=== PATIENT | female | born 1980 | race Caucasian/White ===

== ENCOUNTER 2017-11-03 05:29 | Inpatient (IN) | payer OTHER ==
[2017-11-03] MEDS ORDERED: Acetaminophen 500 MG Tab PO ONE (06:07)
[2017-11-03] MEDS ORDERED: Celecoxib 200 MG Cap PO ONE (06:07)
[2017-11-03] MEDS ORDERED: Gabapentin 300 MG Cap PO ONE (06:08)
[2017-11-03] MEDS ORDERED: Scopolamine 1.5 MG Transdermal Patch TOP ONE (06:15)
[2017-11-03] MEDS ORDERED: cefOXitin 2 GM Vial ONE (07:02)
[2017-11-03] MEDS ORDERED: fentaNYL 250 MCG/5 ML SDV ONE (07:09)
[2017-11-03] MEDS ORDERED: Succinylcholine/Normal Saline 200 MG/10 ML Syringe ONE (07:10)
[2017-11-03] MEDS ORDERED: Ondansetron 4 MG/2 ML SDV ONE (07:10)
[2017-11-03] MEDS ORDERED: Propofol 200 MG/20 ML SDV ONE (07:10)
[2017-11-03] MEDS ORDERED: Dextrose 5%-Lactated Ringers 1,000 ML IV SCH (07:15)
[2017-11-03] MEDS ORDERED: Lidocaine 0.4%/D5W 2 GM/500 ML BAG IV SCH (08:00)
[2017-11-03] MEDS ORDERED: Ketamine 500 MG/5 ML MDV IV SCH (08:00)
[2017-11-03] MEDS ORDERED: Lidocaine 2% 100 MG/5 ML Syringe IVPUSH ONE (08:00)
[2017-11-03] MEDS ORDERED: Ropivacaine 60 ML, Dexamethasone 8 MG, EPINEPHrine 0.4 MG, Sodium Chloride 0.9% 17.6 ML NERVRT SCH ×4 (08:00)
[2017-11-03] MEDS: cefOXitin 2 GM in Sodium Chloride 0.9% 50 ML IV ONE ×2 (08:09→13:22)
[2017-11-03] MEDS ORDERED: Rocuronium 50 MG/5 ML Vial ONE ×2 (08:22→09:54)
[2017-11-03] MEDS ORDERED: Dexamethasone 4 MG/ML SDV ONE (08:40)
[2017-11-03] MEDS ORDERED: Neostigmine Methylsulfate 1 MG/ML 5 ML Syringe ONE (09:45)
[2017-11-03] MEDS ORDERED: fentaNYL 100 MCG/2 ML SDV ONE (09:56)
[2017-11-03] MEDS ORDERED: hydrOXYzine HCl 100 MG/2 ML SDV IM ONE (10:50)
[2017-11-03] MEDS ORDERED: Metoclopramide 10 MG/2 ML SDV IVPUSH PRN (13:00)
[2017-11-03] MEDS ORDERED: Labetalol 20 MG/4 ML Syringe IVPUSH PRN (13:00)
[2017-11-03] MEDS ORDERED: Ondansetron 4 MG/2 ML SDV IVPUSH PRN (13:00)
[2017-11-03] MEDS ORDERED: hydrOXYzine HCl 100 MG/2 ML SDV IM PRN (13:00)
[2017-11-03] MEDS ORDERED: diphenhydrAMINE 50 MG/ML SDV IVPUSH PRN (13:00)
[2017-11-03] MEDS: cefOXitin 2 GM in Sodium Chloride 0.9% 50 ML IV SCH ×2 (13:22→20:12)
[2017-11-03] MEDS: Lidocaine 0.4%/D5W 2 GM/500 ML BAG IV SCH (13:23)
[2017-11-03] MEDS: Gabapentin 250 MG/5 ML Solution ML 470 ML Bottle PO SCH ×2 (13:24→20:12)
[2017-11-03] MEDS: [UNRECOGNIZED DRUG - REMARK] TOP SCH (13:24)
[2017-11-03] MEDS: Pantoprazole 40 MG Vial IVPUSH SCH (13:25)
[2017-11-03] MEDS: Acetaminophen Soln 650 MG/20.3 ML UD Cup PO SCH ×2 (13:25→20:12)
[2017-11-03] MEDS: Dextrose 5%-Lactated Ringers 1,000 ML IV SCH (13:48)
[2017-11-03] MEDS: MVI, Adult with Vitamin K 10 ML, Thiamine 200 MG, Chromium/Copper/Mang/Selen/Zn 1 ML in... IV SCH ×4 (16:15)
[2017-11-03] MEDS: Heparin Sodium 5,000 Units/ML Vial SUBCUT SCH (17:33)
[2017-11-04] MEDS: Dextrose 5%-Lactated Ringers 1,000 ML IV SCH (00:53)
[2017-11-04] MEDS: Lidocaine 0.4%/D5W 2 GM/500 ML BAG IV SCH (00:56)
[2017-11-04] MEDS: Acetaminophen Soln 650 MG/20.3 ML UD Cup PO SCH ×4 (01:00→19:55)
[2017-11-04] MEDS: cefOXitin 2 GM in Sodium Chloride 0.9% 50 ML IV SCH ×2 (01:00→08:54)
[2017-11-04] MEDS ORDERED: Iohexol 647 MG/ML 50 ML SDV PO STA (03:22)
[2017-11-04] MEDS: Heparin Sodium 5,000 Units/ML Vial SUBCUT SCH ×2 (06:14→18:07)
[2017-11-04] MEDS ORDERED: Ondansetron 4 MG Tab.DIS PO PRN (08:07)
[2017-11-04] MEDS ORDERED: Dextrose 5%-Lactated Ringers 1,000 ML IV SCH (08:15)
--- NOTE | 2017-11-04 08:53 | CR ---
Status post Tha-en-Y. No gross evidence for contrast leakage.
[2017-11-04] MEDS: Celecoxib 200 MG Cap PO SCH (08:55)
[2017-11-04] MEDS: Gabapentin 250 MG/5 ML Solution ML 470 ML Bottle PO SCH ×3 (08:58→21:42)
--- NOTE | 2017-11-04 09:15 | PN ---
DATE OF SERVICE: 11/04/2017 SUBJECTIVE: Montse is postop day #1, following a Tha-en-Y gastric bypass surgery. Pain is controlled. Vital signs have been stable. She has been up ambulating. Oral intake was 280 and urine output 2300. SAMIR drain put out a 95 mL of a light pink serosanguineous drainage. OBJECTIVE: GENERAL: Montse Salazar is a 37-year-old female. VITAL SIGNS: TPR is 99, 72, 16; blood pressure is 138/79. HEENT: Negative. NECK: Supple. HEART: Regular rate and rhythm. LUNGS: Clear. ABDOMEN: Dressings dry and intact. Abdominal binder is on and SCDs are on, and there is no peripheral edema. ASSESSMENT: Laparoscopic Tha-en-Y gastric bypass surgery. Liver biopsy and repair of diaphragmatic hernia for morbid obesity, hepatomegaly, and diaphragmatic hernia. Date of surgery is 11/03/2017. Spencer Pagan, surgeon. PLAN: 1. Step-2 gastric bypass diet. 2. Decrease IV to 100 mL per hour. 3. Dressing off, may shower. 4. Flexeril 10 mg t.i.d. p.r.n., Lexapro 10 mg p.o. daily, Zofran 4 mg sublingual p.r.n. nausea and vomiting, trazodone 50 mg p.o. at bedtime. 5. Good pulmonary toilet. 6. We will evaluate p.r.n. or in a.m. Mandy Bob PA-C /[id number]
[2017-11-04] MEDS: [UNRECOGNIZED DRUG - REMARK] TOP SCH (09:25)
[2017-11-04] MEDS: Escitalopram 10 MG Tab PO SCH (09:25)
[2017-11-04] MEDS: Cyclobenzaprine 10 MG Tab PO SCH ×3 (09:25→21:42)
[2017-11-04] MEDS: Pantoprazole 40 MG Vial IVPUSH SCH (13:26)
[2017-11-04] MEDS: MVI, Adult with Vitamin K 10 ML, Thiamine 200 MG, Chromium/Copper/Mang/Selen/Zn 1 ML in... IV SCH ×4 (16:13)
[2017-11-04] MEDS ORDERED: traZODone 50 MG Tab PO SCH (21:00)
[2017-11-05] MEDS: Acetaminophen Soln 650 MG/20.3 ML UD Cup PO SCH ×2 (01:51→08:09)
[2017-11-05] MEDS: Heparin Sodium 5,000 Units/ML Vial SUBCUT SCH (06:54)
[2017-11-05] MEDS: Celecoxib 200 MG Cap PO SCH (08:10)
[2017-11-05] MEDS: [UNRECOGNIZED DRUG - REMARK] TOP SCH (08:11)
[2017-11-05] MEDS: Escitalopram 10 MG Tab PO SCH (08:33)
[2017-11-05] MEDS: Cyclobenzaprine 10 MG Tab PO SCH (08:33)
[2017-11-05] MEDS: Gabapentin 250 MG/5 ML Solution ML 470 ML Bottle PO SCH (08:33)
[2017-11-05] MEDS ORDERED: Cyanocobalamin (Vitamin B12) 1,000 MCG/ML SDV IM ONE (09:00)
--- NOTE | 2017-11-06 08:52 | DISCH ---
ADMISSION DIAGNOSES: 1. Morbid obesity. 2. Back pain. 3. Depression. DISCHARGE DIAGNOSES: Laparoscopic Tha-en-Y gastric bypass surgery, liver biopsy, and repair of diaphragmatic hernia for morbid obesity, hepatomegaly, and diaphragmatic hernia. DATE OF SURGERY: 11/03/2017. SURGEON: Spencer Pagan MD. HISTORY: Montse Salazar is a 37-year-old female with longstanding history of morbid obesity and increasingly comorbidities. After preoperative evaluation and discussion of possible risks and possible complications, she wished to proceed with surgical procedure. HOSPITAL COURSE: Montse had her surgery on 11/03/2017. She had no operative complications. On postop day #1, her upper GI was normal. She was started on a step-2 gastric bypass diet without cereal. She received dietary instructions. On postop day #2, her activity was good, vital signs were stable, she received adequate postoperative education, and she is ready to be discharged to home. PHYSICAL EXAMINATION: GENERAL: Montse Salazar is a 37-year-old female. VITAL SIGNS: Height is 5 feet 7 inches, weight is 283 pounds, BMI is 44. T/P/R 98.6/81/16. Blood pressure 114/74. HEENT: Negative. NECK: Supple. HEART: Regular rate and rhythm. LUNGS: Clear. ABDOMEN: Sutures in place, 4x4s over SAMIR drain site. Abdominal binder is on. EXTREMITIES: Without peripheral edema. DISPOSITION: Discharged to home. CONDITION: Stable and improving. FOLLOWUP APPOINTMENT: With Mandy Bob PA-C, at [place], [place] on 11/10/2017 at 10 a.m. HOME MEDICATIONS: 1. Tylenol 650 mg oral q.6 hours liquid or chewable for 2 weeks. 2. Celebrex 200 mg p.o. daily, #14. 3. Zofran ODT 4 mg q.4 hours p.r.n. nausea. 4. She is to resume her home medications of Flexeril 10 mg 3 times a day, Lexapro 10 mg oral daily, trazodone 50 mg at bedtime. 5. Stop taking meloxicam 15 mg before breakfast. DISCHARGE INSTRUCTIONS: 1. Diet: Step-2 gastric bypass diet with no cereal until 11/16/2017. 2. Activity after discharge: No lifting over 10 pounds for 2 weeks. 3. Other activity: Walk at least 6 times daily inside your home. 4. Driving: Do not drive for 1 week. 5. Shower/Bathing: May shower. 6. Notify provider if any fever, increased pain, nausea, or vomiting. 7. Wound incision care: Keep site clean and dry. Wear abdominal binder for 2 weeks and then as tolerated. SPECIAL INSTRUCTIONS: Use incentive spirometer 10 times every hour while awake for 1 week. Write down everything you eat and drink. Add up protein grams and fluid ounces, bring to clinic appointment.
--- NOTE | 2017-11-09 14:01 | OR ---
DATE OF PROCEDURE: 11/03/2017 PREOPERATIVE DIAGNOSIS: Morbid obesity. POSTOPERATIVE DIAGNOSES: 1. Morbid obesity. 2. Marked hepatomegaly. 3. Paraesophageal diaphragmatic hernia. OPERATIVE PROCEDURE: 1. Laparoscopic Tha-en-Y gastric bypass, long limb gastroenterostomy (16472). 2. Jose Eduardo-Cut needle liver biopsy (10247). 3. Repair of paraesophageal diaphragmatic hernia (51323). ANESTHESIA: General. ASSISTANTS: Mandy Bob PA-C and KRIS Covington3. INDICATIONS FOR PROCEDURE: This is a 37-year-old presenting with longstanding morbid obesity and increasingly significant comorbidities. After preoperative evaluation and discussion, she wished to proceed with a gastric bypass procedure. Potential risks including bleeding, infection, leaks from various GI tract closures, problems with bowel obstruction over time as well as possibility of cardiopulmonary, septic, or hemorrhagic complications leading to were discussed, and the patient wishes to proceed. DETAILS OF PROCEDURE: The patient was taken to the operating room and after general endotracheal anesthesia was induced, she was placed in a lithotomy position. An orogastric tube was placed and the abdomen was prepped and draped. At 15 cm inferior, 5 cm left of the xiphoid process, a transverse incision was made, the peritoneal cavity inflated to 15 mmHg pressure with CO2. Laparoscope was then reinserted. No underlying trocar insertion site injuries were seen. Following this, bilateral subcostal transversus abdominis plane blocks were placed with direct visualization of the needle-tip in the plane just inside the peritoneum and the standard injection placed bilaterally. Following this, 5-mm trocars were placed across the upper and mid abdomen and general exploration was undertaken. The liver was noted to be markedly enlarged and grossly fatty infiltrated. Jose Eduardo-Cut needle biopsies were obtained from left lobe of the liver. Minimal bleeding from the biopsy sites was controlled with electrocautery. The omentum was then divided at the midline at the level of the transverse colon. This allowed identification of the small bowel at the ligament of Treitz. Small bowel was then traced out 150 cm distal to that point, was divided transversely with a CORINNE stapler. Small bowel was then traced out an additional 200 cm where the [id number] enteroenterostomy was accomplished with internal firing of the Endo-CORINNE 60 mm stapler. The common opening was then closed transversely with the same stapler and angles anastomosed, and mesenteric defect approximated with some 0 Ethibond stitch along with 4 mL of fibrin sealant. The divided end of the Tha limb was then from the mesentery for a few centimeters, which allowed an antecolic position of the Tha limb up to the level of the gastroesophageal junction without tension. The liver was then retracted anteriorly. The patient was noted to have a moderate-sized paraesophageal diaphragmatic hernia containing some perigastric fat as well as the fundus of the stomach. This was reduced and the peritoneum overlying this was divided and reflected downward. An anterior repair of the diaphragmatic hernia was accomplished with some 0 Ethibond sutures reinforced with PTFE pledgets. The gastrointestinal balloon catheter was inflated to 15 mL and pulled up snugly against the EG junction. Gastric wall over the apex balloon was marked with electrocautery, and balloon catheter deflated and pulled up from the esophagus. The lesser omental tissue adjacent to the gastric cardia was then incised and this allowed initiation of pouch formation of the cauterized site on the gastric cardia and then completed with additional CORINNE staple firings up to and through the angle of His. Upon completion of the pouch, both staple lines were noted to be intact. At this point, an anvil of 25 mm EEA stapler was attached to a [place] sump-type tube. The latter was brought down through the mouth and taken out through a small opening in the gastric pouch. The divided end of the Tha limb was then opened and upon attempted placement of a 25 mm stapler, the small bowel was noted to undergo extreme spasm despite being very gentle and slow. The patient had unusual degree of spasm and the bowel continued to tear. Given this, the stapler was removed. The retrieval stitch to the anvil was also then used to remove the 25-mm EEA anvil and a 21-mm anvil was then placed through the same opening in the gastric pouch. The divided end of the Tha limb was then entered with the 21- mm EEA stapler. This also had a quite bit of spasm, but eventually satisfactory length of uninjured small bowel was established to allow the stapler to be brought out the anvil and united with it and thus creating a gastrojejunostomy. Upon removal of the stapler, double donuts of mucosa were noted within it and the small bowel was closed off with a vascular staple line. Gastrojejunostomy was then reinforced with some 3-0 Vicryl seromuscular stitch along with fibrin sealant. The omentum was wrapped around the anastomosis as well and on its left side both anteriorly and posteriorly and following this, a leak test was then accomplished with injection of 120 mL of air in the gastric pouch while submerged with cefoxitin-containing saline solution. No leaks were identified. A single Ky-Saba drain was then taken out through the left lateral trocar site and positioned adjacent to the gastrojejunostomy and from there up into the splenic fossa. The remaining trocars were removed and the peritoneal cavity deflated. Incisions were closed with some 4-0 Vicryl skin stitch which was also used to affix the drain. The patient was taken to the recovery room in satisfactory condition. Physician accounting assistant, Mandy Bob, played an essential role in assisting in this case, helping to position the patient, retract structures as needed, as well as suturing and cutting sutures when indicated. Her presence improved patient safety and decreased the operative time. Spencer Pagan MD /[id number]
== END 2017-11-05 10:41 | disposition home or self-care (01) | DRG 620 ==
LOC: JP.SDS 05:29 → JP.MS 05:29 → EDSTATUS 08:45 → JP.2SS 10:30
PROVIDERS: ADMIT Surgery; ATTEND Surgery
PROC: 0D164ZA Bypass Stomach to Jejunum, Percutaneous Endoscopic Approach (ICD-10-PCS; principal; 2017-11-03)
PROC: 0FB24ZX Excision of Left Lobe Liver, Percutaneous Endoscopic Approach, Diagnostic (ICD-10-PCS; 2017-11-03)
PROC: 0BQT4ZZ Repair Diaphragm, Percutaneous Endoscopic Approach (ICD-10-PCS; 2017-11-03)
PROC: 3E0T3BZ Introduction of Anesthetic Agent into Peripheral Nerves and Plexi, Percutaneous Approach (ICD-10-PCS; 2017-11-03)
DX: E66.01 Morbid (severe) obesity due to excess calories (principal); K44.0 Diaphragmatic hernia with obstruction, without gangrene; Z68.41 Body mass index [BMI] 40.0-44.9, adult; R16.0 Hepatomegaly, not elsewhere classified; F32.9 Major depressive disorder, single episode, unspecified; M54.9 Dorsalgia, unspecified; Z87.891 Personal history of nicotine dependence; Z88.8 Allergy status to other drugs, medicaments and biological substances; Z88.1 Allergy status to other antibiotic agents; K76.0 Fatty (change of) liver, not elsewhere classified
CPT/HCPCS: 36415; 74240; 74240-26; 81025; 82728; 82962; 86850; 86900; 86901; 88307; 88313; A9270-GY; C9113; J0171; J0694; J1100; J1644; J2001; J2405; J2704; J2795; J3010; J3410; J3411; J3420; J7030; J7040; J7042; J7050; Q9967

== ENCOUNTER 2017-12-07 13:29 | Day surgery (SDC) | payer OTHER ==
[~2017-12-07 13:29] MED LIST: Cyanocobalamin (Vitamin B12) 1,000 MCG/ML SDV IM ONE; Glycopyrrolate 0.2 MG/ML 2 ML SDV IVPUSH ONE; Lactated Ringers 1,000 ML IV ONE; MVI, Adult with Vitamin K 10 ML, Chromium/Copper/Mang/Selen/Zn 1 ML in Lactated Ringers... IV ONE; Midazolam 1 MG/ML 2 ML SDV ONE; Propofol 200 MG/20 ML SDV ONE; fentaNYL 100 MCG/2 ML SDV ONE
[2017-12-07] MEDS ORDERED: MVI, Adult with Vitamin K 10 ML, Chromium/Copper/Mang/Selen/Zn 1 ML in Lactated Ringers... IV ONE ×3 (13:45)
[2017-12-07] MEDS ORDERED: Cyanocobalamin (Vitamin B12) 1,000 MCG/ML SDV IM ONE (14:39)
[2017-12-07] MEDS ORDERED: Glycopyrrolate 0.2 MG/ML 2 ML SDV IVPUSH ONE (14:40)
[2017-12-07] MEDS ORDERED: Propofol 200 MG/20 ML SDV ONE (16:58)
--- NOTE | 2017-12-08 07:45 | OR ---
DATE OF PROCEDURE: 12/07/2017 PREOPERATIVE DIAGNOSIS: Dysphagia, status post Tha-en-Y gastric bypass. POSTOPERATIVE DIAGNOSIS: Strictured gastrojejunostomy, status post Tha-en-Y gastric bypass. PROCEDURES: Esophagogastrojejunoscopy with dilatation of gastrojejunal anastomosis. SURGEON: Alverto George MD ANESTHESIA: IV anesthesia with monitored anesthesia care. INDICATIONS: This 37-year-old white female is status post Tha-en-Y gastric bypass for morbid obesity in October of this year. She lives in [place]. She is now unable to take any food or fluid down, this comes right back up. She was seen in the emergency room in [place], where she was diagnosed with pneumonia and was treated. She is referred here for gastric dilatation. I counseled her for this, including risks and alternatives, and she gave her informed consent to proceed. PROCEDURE IN DETAIL: After adequate IV anesthesia was obtained, with the patient in the left lateral decubitus position, time-out was held. The flexible video Olympus upper endoscope was passed through her mouth, down her esophagus, and into her stomach remnant. The anastomosis was quite tight, the scope could not be passed through this. Under fluoroscopy, the balloon dilator, a 36-Marshallese, was passed across the anastomosis and inflated for 1 minute. The dilator was then deflated and the scope easily passed across the anastomosis. The scope was then removed. She tolerated the procedure well. Alverto George MD /[id number]
== END 2017-12-07 19:15 | disposition home or self-care (01) ==
LOC: JP.SDS 13:29
PROVIDERS: ATTEND Surgery
DX: K95.89 Other complications of other bariatric procedure (principal)
CPT/HCPCS: 43245; J2250; J2704; J3010; J3420; J7120; J3490

== ENCOUNTER 2017-12-18 07:50 | Day surgery (SDC) | payer OTHER ==
[~2017-12-18 07:50] MED LIST changes: -Cyanocobalamin (Vitamin B12) 1,000 MCG/ML SDV IM ONE; -Glycopyrrolate 0.2 MG/ML 2 ML SDV IVPUSH ONE; -Lactated Ringers 1,000 ML IV ONE; -MVI, Adult with Vitamin K 10 ML, Chromium/Copper/Mang/Selen/Zn 1 ML in Lactated Ringers... IV ONE
[2017-12-18] MEDS ORDERED: Lactated Ringers 1,000 ML IV SCH (08:30)
[2017-12-18] MEDS ORDERED: Glycopyrrolate 0.2 MG/ML 2 ML SDV IVPUSH ONE (09:00)
[2017-12-18] MEDS ORDERED: MVI, Adult with Vitamin K 10 ML, Thiamine 100 MG, Chromium/Copper/Mang/Selen/Zn 1 ML in... IV ONE ×4 (09:30)
[2017-12-18] MEDS ORDERED: Cyanocobalamin (Vitamin B12) 1,000 MCG/ML SDV IM ONE (10:00)
--- NOTE | 2017-12-27 14:48 | OR ---
DATE OF PROCEDURE: 12/18/2017 PREOPERATIVE DIAGNOSIS: Probable stricture at gastrojejunostomy. POSTOPERATIVE DIAGNOSIS: Stricture at gastrojejunostomy. OPERATIVE PROCEDURE: Upper gastrointestinal endoscopy with dilation of gastrojejunostomy ([id number]). ANESTHESIA: IV sedation. INDICATIONS FOR PROCEDURE: This is a 37-year-old status post Tha-en-Y gastric bypass, presenting for the upper endoscopy for dilation of likely stricture of the gastrojejunostomy. Plan is to proceed with upper GI endoscopy with dilation as indicated. The potential risks including bleeding and perforation were discussed, and the patient wishes to proceed. DETAILS TO PROCEDURE: The patient was taken to the operating room and placed in a left lateral decubitus position. IV sedation was administered, after which the upper GI endoscope was passed orally through the length of the esophagus and into the gastric pouch. No retained food or fluid was noted. The patient was noted to have moderate stricture of the gastrojejunostomy. A Bard gastrointestinal balloon catheter was then centered across the anastomosis and inflated to 45-[place] size, stage I in terms of pressure. This was held in position for 1 minute, after which the balloon catheter was deflated and withdrawn. The scope could easily then be passed through the anastomosis. No complications were noted. The patient was taken to the recovery room in satisfactory condition. Spencer Pagan MD /[id number]
== END 2017-12-18 13:31 | disposition home or self-care (01) ==
LOC: JP.SDS 07:50
PROVIDERS: ATTEND Surgery
DX: K95.89 Other complications of other bariatric procedure (principal); Z88.1 Allergy status to other antibiotic agents; Z88.8 Allergy status to other drugs, medicaments and biological substances
CPT/HCPCS: 43245; J2250; J2704; J3010; J3411; J3420; J7120; J3490

== ENCOUNTER 2017-12-21 19:28 | Inpatient (IN) | payer OTHER ==
--- NOTE | 2017-12-21 20:07 | EDM.PDOC ---
ED HPI GENERAL MEDICAL PROBLEM - General Chief Complaint: Abdominal Pain Stated Complaint: CAME FROM [facility] Time Seen by Provider: 12/21/17 19:55 Source of Information: Reports: Patient History Limitations: Reports: No Limitations - History of Present Illness INITIAL COMMENTS - FREE TEXT/NARRATIVE: 37-year-old female who had an esophageal dilatation 3 days ago has had some persistent epigastric pain since the procedure. She was evaluated in [place] today and was found to have free air in the upper abdomen. She's also been having some difficulty with eating although she is taking fluids well. No fevers or chills. Her pain is starting to localize in the right upper quadrant and she is getting pleuritic pain with breathing. Her workup was complete in [place], she was transferred here for a brief evaluation in the emergency room for stability and then to be admitted to the surgical floor. Onset: Gradual (Symptoms have been gradually worsening over the weekend) Location: Reports: Abdomen Abdominal Pain Score (Numeric/FACES): 3 - Related Data Allergies Allergy/AdvReac Type Severity Reaction Status Date / Time amitriptyline Allergy Hallucinati Verified 12/21/17 20:38 ons celecoxib [From Celebrex] Allergy Agitation Verified 12/21/17 20:38 NSAIDS (Non-Steroidal Allergy Cannot Verified 12/21/17 20:38 Anti-Inflamma Remember ketoprofen AdvReac Diarrhea Verified 12/21/17 20:38 Home Meds: Home Meds Cyclobenzaprine [Flexeril] 10 mg PO TID PRN 10/30/17 [History] Escitalopram [Lexapro] 10 mg PO DAILY 10/30/17 [History] traZODone HCl [Trazodone HCl] 50 mg PO BEDTIME PRN 10/30/17 [History] Acetaminophen [Tylenol] 650 mg PO Q6H cup 11/05/17 [Rx] Ondansetron [Zofran ODT] 4 mg PO Q4H PRN #30 tab.dis 11/05/17 [Rx] Hyoscyamine [Levsin] 0.125 mg SL Q4HR PRN 12/07/17 [History] Ca Carbonate/Vitamin D3/Vit K [Calcium + D Soft Chewable Tab] 1 tab PO DAILY 08/24 [History] Cyanocobalamin (Vitamin B-12) [Vitamin B-12] 1,000 mcg SL DAILY 12/17/17 [ History] Ferrous Fumarate/Vitamin C [Vitron-C] 65 - 125 mg PO DAILY 12/17/17 [History] Magnesium Oxide 400 mg PO BEDTIME 12/17/17 [History] Past Medical History HEENT History: Reports: Allergic Rhinitis, Impaired Vision Respiratory History: Reports: Bronchitis, Recurrent Gastrointestinal History: Reports: GERD Musculoskeletal History: Reports: Back Pain, Chronic, Osteoarthritis Psychiatric History: Reports: Depression Endocrine/Metabolic History: Reports: Obesity/BMI 30+ Hematologic History: Reports: B12 Deficiency, Folic Acid - Infectious Disease History Infectious Disease History: Reports: Chicken Pox - Past Surgical History HEENT Surgical History: Reports: Other (See Below) Other HEENT Surgeries/Procedures: Tear duct opened up - left eye Respiratory Surgical History: Reports: None GI Surgical History: Reports: Bariatric Procedure, EGD, Other (See Below) Other GI Surgeries/Procedures: egd dil 12/07/17 Endocrine Surgical History: Reports: None Musculoskeletal Surgical History: Reports: Arthroscopic Knee Social & Family History - Family History Family Medical History: Noncontributory - Tobacco Use Smoking Status *Q: Never Smoker Years of Tobacco use: 10 Packs/Tins Daily: 0.3 Used Tobacco, but Quit: Yes Month/Year Tobacco Last Used: january Second Hand Smoke Exposure: No - Caffeine Use Caffeine Use: Reports: None - Alcohol Use Days Per Week of Alcohol Use: 0 - Recreational Drug Use Recreational Drug Use: No ED ROS GENERAL - Review of Systems Review Of Systems: See Below Constitutional: Reports: Malaise. Denies: Fever, Chills Respiratory: Reports: Pleuritic Chest Pain (Especially on the right side) GI/Abdominal: Reports: Abdominal Pain, Nausea. Denies: Vomiting : Reports: No Symptoms Skin: Reports: No Symptoms Neurological: Reports: No Symptoms ED EXAM, GI/ABD - Physical Exam Exam: See Below Exam Limited By: No Limitations General Appearance: Alert, No Apparent Distress Eyes: Bilateral: Normal Appearance Respiratory/Chest: No Respiratory Distress Cardiovascular: Normal Peripheral Pulses, Regular Rate, Rhythm GI/Abdominal Exam: Tender (Tender across the upper abdomen, very few bowel sounds) Course - Vital Signs Last Recorded V/S: Last Vital Signs Temp 96.3 F 12/21/17 21:07 Pulse 96 12/21/17 21:07 Resp 18 12/21/17 21:07 BP 106/56 L 04/16/18 21:07 Pulse Ox 94 L 12/21/17 22:20 - Orders/Labs/Meds Orders: Medication Orders Hydromorphone HCl (Dilaudid Hall Supervisor 15 Mg In Ns 30 Ml) 0 mg IV ASDIRECTED PRN; Protocol PRN 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 Last Admin: 12/21/17 21:36 Dose: 15 mg Dextrose/Lactated Ringer's (Dextrose 5%-Lactated Ringers) 1,000 mls @ 150 mls/ hr IV ASDIRECTED BOBBY Last Admin: 12/21/17 21:36 Dose: 150 mls/hr Meropenem 500 mg/ Sodium (Chloride) 50 mls @ 100 mls/hr IV Q6H BOBBY Last Admin: 12/21/17 21:35 Dose: 100 mls/hr Naloxone HCl (Narcan) 0.1 mg IV ASDIRECTED PRN PRN Reason: decreased respiratory rate Ondansetron HCl (Zofran) 4 mg IVPUSH Q4H PRN PRN Reason: NAUSEA Meds: Medications Generic Name Dose Route Start Last Admin Trade Name Freq PRN Reason Stop Dose Admin Hydromorphone HCl 0 mg 12/21/17 20:39 12/21/17 21:36 Dilaudid Hall Supervisor 15 Mg In Ns 30 Ml IV 15 mg ASDIRECTED PRN Administration 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 Pagan was contacted and he accepted her for admission, and will be giving orders to the nursing staff. Departure - Departure Time of Disposition: 20:37 Disposition: Admitted As Inpatient 68 Condition: Fair Clinical Impression: Abdominal pain Qualifiers: Abdominal location: upper abdomen, unspecified Qualified Code(s): R10.10 - Upper abdominal pain, unspecified - Discharge Information
[2017-12-21] MEDS ORDERED: Naloxone 0.4 MG/ML SDV IV PRN (20:39)
[2017-12-21] MEDS ORDERED: Ondansetron 4 MG/2 ML SDV IVPUSH PRN (20:43)
[2017-12-21] MEDS: Meropenem 500 MG in Sodium Chloride 0.9% 50 ML IV SCH (21:35)
[2017-12-21] MEDS: HYDROmorphone/Normal Saline 15 MG/30 ML PCA IV PRN (21:36)
[2017-12-21] MEDS: Dextrose 5%-Lactated Ringers 1,000 ML IV SCH (21:36)
[2017-12-22] MEDS: Meropenem 500 MG in Sodium Chloride 0.9% 50 ML IV SCH ×4 (02:49→20:38)
[2017-12-22] MEDS: Dextrose 5%-Lactated Ringers 1,000 ML IV SCH ×2 (04:24→08:34)
[2017-12-22] MEDS ORDERED: Meropenem 500 MG SDV ONE (05:39)
[2017-12-22] MEDS ORDERED: Bupivacaine 0.5%/EPINEPHrine 1:200,000 50 ML MDV ONE (05:40)
[2017-12-22] MEDS ORDERED: Glycopyrrolate 0.2 MG/ML 5 ML MDV ONE (06:07)
[2017-12-22] MEDS ORDERED: Ondansetron 4 MG/2 ML SDV ONE (06:07)
[2017-12-22] MEDS ORDERED: Propofol 200 MG/20 ML SDV ONE (06:07)
[2017-12-22] MEDS ORDERED: Succinylcholine 200 MG/10 ML MDV ONE (06:07)
[2017-12-22] MEDS ORDERED: Rocuronium 50 MG/5 ML Vial ONE (06:07)
[2017-12-22] MEDS ORDERED: Dexamethasone 4 MG/ML SDV ONE (06:07)
[2017-12-22] MEDS ORDERED: fentaNYL 250 MCG/5 ML SDV ONE (06:07)
[2017-12-22] MEDS ORDERED: Neostigmine Methylsulfate 1 MG/ML 5 ML Syringe ONE (06:07)
[2017-12-22] MEDS ORDERED: Ropivacaine 55 ML, Dexamethasone 8 MG, EPINEPHrine 0.4 MG, Sodium Chloride 0.9% 22.6 ML NERVRT SCH ×4 (07:00)
[2017-12-22] MEDS ORDERED: Cyclobenzaprine 10 MG Tab PO PRN (08:36)
[2017-12-22] MEDS ORDERED: Dextrose 5%-Lactated Ringers 1,000 ML IV SCH (08:45)
[2017-12-22] MEDS ORDERED: diphenhydrAMINE 50 MG/ML SDV IVPUSH PRN (09:00)
[2017-12-22] MEDS ORDERED: Labetalol 20 MG/4 ML Syringe IVPUSH PRN (09:00)
[2017-12-22] MEDS ORDERED: hydrOXYzine HCl 100 MG/2 ML SDV IM PRN (09:00)
[2017-12-22] MEDS ORDERED: Metoclopramide 10 MG/2 ML SDV IVPUSH PRN (09:00)
[2017-12-22] MEDS: Escitalopram 10 MG Tab PO SCH (09:30)
[2017-12-22] MEDS: Gabapentin 250 MG/5 ML Solution ML 470 ML Bottle PO SCH ×3 (09:30→20:47)
[2017-12-22] MEDS: Hyoscyamine 0.125 MG Tab.SL SL SCH ×3 (09:30→22:11)
[2017-12-22] MEDS: Sodium Chloride 0.9% 250 ML IV SCH (09:54)
[2017-12-22] MEDS: Pantoprazole 40 MG Vial IVPUSH SCH (12:02)
[2017-12-22] MEDS: Acetaminophen Soln 650 MG/20.3 ML UD Cup PO SCH ×2 (12:05→18:15)
[2017-12-22] MEDS: Heparin Sodium 5,000 Units/ML Vial SUBCUT SCH (16:00)
[2017-12-22] MEDS: MVI, Adult with Vitamin K 10 ML, Thiamine 100 MG, Chromium/Copper/Mang/Selen/Zn 1 ML in... IV SCH ×4 (16:44)
[2017-12-22] MEDS: traZODone 50 MG Tab PO SCH (20:47)
[2017-12-23] MEDS: Acetaminophen Soln 650 MG/20.3 ML UD Cup PO SCH ×4 (00:15→17:36)
[2017-12-23] MEDS: Meropenem 500 MG in Sodium Chloride 0.9% 50 ML IV SCH ×4 (02:10→20:36)
[2017-12-23] MEDS: Heparin Sodium 5,000 Units/ML Vial SUBCUT SCH ×2 (03:46→16:03)
[2017-12-23] MEDS ORDERED: Iohexol 647 MG/ML 50 ML SDV PO STA (03:58)
[2017-12-23] MEDS: Hyoscyamine 0.125 MG Tab.SL SL SCH ×4 (05:43→21:26)
[2017-12-23] MEDS ORDERED: Dextrose 5%-Lactated Ringers 1,000 ML IV SCH (07:42)
[2017-12-23] MEDS ORDERED: Magnesium Hydroxide 400 MG/5 ML Susp 30 ML Cup PO ONE (09:00)
[2017-12-23] MEDS: Gabapentin 250 MG/5 ML Solution ML 470 ML Bottle PO SCH ×3 (09:07→20:51)
[2017-12-23] MEDS: Escitalopram 10 MG Tab PO SCH (09:09)
--- NOTE | 2017-12-23 09:14 | CR ---
UGI wo KUB HISTORY: Gastric bypass. COMPARISON: 11/04/[address] scan 12/21/2017 demonstrating free intraperitoneal air. FINDINGS: 2 surgical drains present. Prior gastric bypass anatomy. Contrast is in small gastric remna nt the distal small bowel is normal in caliber. No extravasation of contrast or obstruction seen.
[2017-12-23] MEDS ORDERED: Bisacodyl 5 MG Tab PO ONE (10:00)
--- NOTE | 2017-12-23 10:25 | PN ---
DATE OF SERVICE: 12/23/2017 SUBJECTIVE: Montse is postoperative day 1. Her pain is controlled. She has been up, ambulating. Oral intake 640. SAMIR drain 1 and 2 put out 30 and 25 of a clear pink serosanguineous drainage respectively. REVIEW OF SYSTEMS: Remainder of review of systems negative for any pertinent positives and negatives. OBJECTIVE: GENERAL: Montse Salazar is a 37-year-old female. She is alert and oriented. VITAL SIGNS: TPR 97.4, 76, 16. Blood pressure 113/66. HEENT: Negative. NECK: Supple. HEART: Regular rate and rhythm. LUNGS: Clear. ABDOMEN: Dressings dry and intact. SAMIR drains intact as above. Abdominal binder is on. EXTREMITIES: Without peripheral edema. ASSESSMENT: Diagnostic laparoscopy with suture of focal perforation at the gastrojejunostomy and drainage of perioperative fluid collection for focal perforation of the gastrojejunostomy with small perforation and intraabdominal fluid collection. Date of surgery 12/22/2017. Spencer Pagan MD. PLAN: 1. Step 2 gastric bypass diet. 2. Decrease IV to 60 mL per hour. 3. Teach the patient to strip, drain, measure, and record SAMIR drains 4 times a day and when half full. 4. Milk of magnesia 30 mL p.o. now and Dulcolax tablets 1 hour after milk of magnesia. 5. Good pulmonary toilet. 6. We will evaluate p.r.n. or in a.m. Mandy Bob PA-C /[id number]
[2017-12-23] MEDS: Pantoprazole 40 MG Vial IVPUSH SCH (10:45)
[2017-12-23] MEDS: MVI, Adult with Vitamin K 10 ML, Thiamine 100 MG, Chromium/Copper/Mang/Selen/Zn 1 ML in... IV SCH ×4 (15:52)
[2017-12-23] MEDS: traZODone 50 MG Tab PO SCH (20:52)
[2017-12-23] MEDS: HYDROmorphone/Normal Saline 15 MG/30 ML PCA IV PRN (21:01)
[2017-12-24] MEDS: Acetaminophen Soln 650 MG/20.3 ML UD Cup PO SCH ×3 (00:28→11:25)
[2017-12-24] MEDS: Meropenem 500 MG in Sodium Chloride 0.9% 50 ML IV SCH ×2 (04:11→09:11)
[2017-12-24] MEDS: Heparin Sodium 5,000 Units/ML Vial SUBCUT SCH (04:15)
[2017-12-24] MEDS: Sodium Chloride 0.9% 250 ML IV SCH (04:19)
[2017-12-24] MEDS: Hyoscyamine 0.125 MG Tab.SL SL SCH ×2 (06:54→09:50)
[2017-12-24] MEDS ORDERED: Cyanocobalamin (Vitamin B12) 1,000 MCG/ML SDV IM ONE (09:00)
[2017-12-24] MEDS: HYDROmorphone 2 MG Tab PO PRN ×2 (09:10→14:28)
[2017-12-24] MEDS: Escitalopram 10 MG Tab PO SCH (09:13)
[2017-12-24] MEDS: Gabapentin 250 MG/5 ML Solution ML 470 ML Bottle PO SCH ×2 (09:13→14:29)
[2017-12-24] MEDS: Pantoprazole 40 MG Vial IVPUSH SCH (10:42)
--- NOTE | 2017-12-25 01:56 | DISCH ---
ADMISSION DIAGNOSES: Abdominal pain, status post Tha-en-Y gastric bypass surgery, unspecified surgical malabsorption, B12 deficiency, chronic osteoarthritis, back pain, depression. DISCHARGE DIAGNOSES: Diagnostic laparoscopy with suture of focal perforation at the gastrojejunostomy and drainage of perioperative fluid collection for focal perforation of the jejunostomy with small perforation and intraabdominal fluid collection. Date of surgery 12/22/2017. Surgeon, Spencer Pagan MD. HISTORY: Montse Salazar is a 37-year-old female, who had an EGD with dilatation. Approximately five days prior to admission, she developed midepigastric abdominal pain. She went to the ER at [place], [place], and was transferred to [place], [place]. After preoperative evaluation and discussion of possible risks and possible complications, she wished to proceed with surgical procedure. HOSPITAL COURSE: Montse had her surgery on 12/22/2017. She had no operative complications. On postop day #1, she was started on a step-2 gastric bypass diet, and she was given some milk of magnesia for bowel stimulation. On postop day #2, her activity was good, pain was well managed, and she was able to be discharged to home. PHYSICAL EXAMINATION: GENERAL: Montse Salazar is a 37-year-old female. VITAL SIGNS: Height is 5 feet 6.93 inches, weight is 244 pounds, BMI is 38.4. TPR 96.6, 107, 16, blood pressure 105/50. HEENT: Negative. NECK: Supple. HEART: Regular rate and rhythm. LUNGS: Clear. ABDOMEN: Incisions look good. Abdominal binder is on. She does have two SAMIR drains, which are draining a light pink serosanguineous drainage of 85 and 36 respectively. These will remain in. EXTREMITIES: Without peripheral edema. DISPOSITION: Discharged to home. CONDITION: Stable and improving. FOLLOWUP APPOINTMENT: With Mandy Bob PA-C, on 01/04/2018 at 10:00 a.m. HOME MEDICATIONS: Tylenol 650 mg q.6 hours p.r.n. pain; Dilaudid 2 mg 1 to 2 every 4 hours p.r.n. pain, #30. She is to resume her home medication of Flexeril 10 mg 3 times a day p.r.n. muscle spasms. Lexapro 10 mg p.o. daily, Levsin 0.125 mg sublingual every 4 hours p.r.n. esophageal spasms, Zofran ODT 4 mg every 4 hours p.r.n. nausea or vomiting, trazodone 50 mg oral at bedtime p.r.n. sleep. Discontinue taking calcium citrate chews, vitamin B12, ferrous fumarate, magnesium oxide until first postop appointment. DIET AFTER DISCHARGE: Step-2 gastric bypass diet with no cereal. Drink 8 to 10 glasses of water a day. ACTIVITY AFTER DISCHARGE: No lifting over 10 pounds for 2 weeks. Driving, do not drive while on pain medication. May shower. Notify provider if any fever, increased pain, nausea, or vomiting. Keep site clean and dry. Wear abdominal binder for 2 weeks and then as tolerated. SPECIAL INSTRUCTION: Use incentive spirometer 10 times every hour while awake for 1 week. Keep record of protein and fluid intake and bring to clinic appointment. Strip, empty, measure, and record SAMIR drains 4 times a day and when half full. Bring record of drainage to clinic appointment.
--- NOTE | 2017-12-28 15:16 | OR ---
DATE OF PROCEDURE: 12/22/2017 PREOPERATIVE DIAGNOSIS: Focal free air, status post dilation of gastrojejunostomy. POSTOPERATIVE DIAGNOSIS: Probable focal perforation at gastrojejunostomy with small perigastric inflammatory fluid collection adjacent to gastrojejunostomy. OPERATIVE PROCEDURES: Diagnostic laparoscopy with: 1. Suture of focal perforation at gastrojejunostomy (37216). 2. Drainage of perigastric inflammatory fluid collection (18534). ANESTHESIA: General. EVAPORATOR: KRISHNA Valentine. 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 This was done on 12/18/2017, i.e. around 4 days ago. Initially, she had done well and, roughly 36 hours ago, began developing some abdominal pain and was instructed to present to the emergency room. She came to the emergency room in [place] with a workup there showing some free intraperitoneal air. Given her bariatric surgery status, she was then transferred here for surgical treatment. She was started on antibiotics, clinically appeared to be stable, and was admitted overnight with hydration and is to undergo an technology officer laparoscopy, laparotomy as necessary, and washout of any area of possibly infected fluid and attempted identification and closure of any site of perforation. Potential risks of the procedure including bleeding and infection, injury to underlying viscera were reviewed, and the patient wishes to proceed. DETAILS OF PROCEDURE: The patient was taken to the operating room and placed in a supine position. After general endotracheal anesthesia was induced, she was converted to a lithotomy position, a Lao catheter was inserted, and the abdomen was prepped and draped. Through the previous camera port, a transverse incision was made and peritoneal cavity entered under direct vision with an Optiview trocar inflated to 15 mmHg pressure with CO2. Two 5-mm trocars were placed in the previous trocar sites, one in the left and one in the right side, as well as one in the epigastrium for retraction of the liver. As one retracted the liver upward, there were some loose adhesions present. These were taken down with Harmonic scalpel. There was a thin slightly lynn-stained fluid collection adjacent to the gastrojejunostomy extending somewhat upward towards the splenic fossa. This was evacuated. This was associated with quite a bit of redness consistent with local inflammation associated with the fluid collection. Cultures of this were obtained. At that point, the patient was noted to have some reddened area in the right anterolateral aspect of the gastrojejunostomy with a little bit of old blood present at that level. A gastrointestinal balloon catheter was then placed per Anesthesia down to the level of the gastric pouch, and while the area was submerged with an antibiotic-containing saline solution, air was injected, and no bubbles or obvious free perforation were present at this time. The site of likely the perforation, i.e. where there had been some blood staining, was then sutured with 2 seromuscular stitches of 3-0 Vicryl stitch. At that point, no further problems were noted. The area was then reinforced with fibrin sealant and irrigated with meropenem- containing saline solution. Two [place] drains, one on the right and one on the left, were then placed. One was positioned up adjacent to the gastrojejunostomy and from there up into the splenic fossa, and the other, from the right side, brought across the area just superior to the gastrojejunostomy. At that point, the trocars were removed. Peritoneal cavity was deflated. Incisions were closed using 4-0 Vicryl skin stitch. Drains were affixed with 4-0 Vicryl stitch as well, and the patient was taken to the recovery room in satisfactory condition. Spencer Pagan MD /[id number]
== END 2017-12-24 14:36 | disposition home or self-care (01) | DRG 330 ==
LOC: JP.ED 19:28 → JP.2SS 20:12
PROVIDERS: ADMIT Surgery; ATTEND Surgery
PROC: 0DQA4ZZ Repair Jejunum, Percutaneous Endoscopic Approach (ICD-10-PCS; principal; 2017-12-22)
PROC: 0W9G4ZX Drainage of Peritoneal Cavity, Percutaneous Endoscopic Approach, Diagnostic (ICD-10-PCS; 2017-12-22)
DX: K63.1 Perforation of intestine (nontraumatic) (principal); R18.8 Other ascites; K91.2 Postsurgical malabsorption, not elsewhere classified; Z98.84 Bariatric surgery status; Z98.0 Intestinal bypass and anastomosis status; M54.9 Dorsalgia, unspecified; Z87.891 Personal history of nicotine dependence; M19.90 Unspecified osteoarthritis, unspecified site; E53.8 Deficiency of other specified B group vitamins; F32.9 Major depressive disorder, single episode, unspecified; H54.7 Unspecified visual loss; Z88.6 Allergy status to analgesic agent; Z88.8 Allergy status to other drugs, medicaments and biological substances
CPT/HCPCS: 51798; 74240; 74240-26; 81001; 87070; 87075; 87205; 94762; 99285; A9270-GY; C9113; J0171; J0330; J1100; J1170; J1644; J2185; J2405; J2704; J2710; J2795; J3010; J3411; J3420; J7042; J7050

== ENCOUNTER 2017-12-30 17:36 | Inpatient (IN) | payer OTHER ==
[2017-12-30] MEDS ORDERED: Lactated Ringers 1,000 ML IV ONE (18:36)
[2017-12-30] MEDS ORDERED: Sodium Chloride 0.9% 10 ML Syringe FLUSH PRN (18:36)
--- NOTE | 2017-12-30 18:55 | EDM.PDOC ---
ED HPI GENERAL MEDICAL PROBLEM - General Chief Complaint: Gastrointestinal Problem Stated Complaint: ABDOMINAL PAIN Time Seen by Provider: 12/30/17 18:28 Source of Information: Reports: Patient, Family, Old Records, RN Notes Reviewed History Limitations: Reports: No Limitations - History of Present Illness INITIAL COMMENTS - FREE TEXT/NARRATIVE: 37-year-old female transferred from [facility] emergency department did contact Dr. Pagan for acceptance of transfer, extensive evaluation in the emergency department including ultrasound which shows sludge in gallbladder, CT scan shows distended gallbladder lab work shows elevated bilirubin elevated liver enzymes. She does complain of ongoing abdominal pain that has been happening for a couple of days some nausea - Related Data Allergies Allergy/AdvReac Type Severity Reaction Status Date / Time amitriptyline Allergy Hallucinati Verified 12/21/17 20:38 ons celecoxib [From Celebrex] Allergy Agitation Verified 12/21/17 20:38 NSAIDS (Non-Steroidal Allergy Cannot Verified 12/21/17 20:38 Anti-Inflamma Remember ketoprofen AdvReac Diarrhea Verified 12/21/17 20:38 Home Meds: Home Meds Cyclobenzaprine [Flexeril] 10 mg PO TID PRN 10/30/17 [History] Escitalopram [Lexapro] 10 mg PO DAILY 10/30/17 [History] traZODone HCl [Trazodone HCl] 50 mg PO BEDTIME PRN 10/30/17 [History] Acetaminophen [Tylenol] 650 mg PO Q6H cup 11/05/17 [Rx] Ondansetron [Zofran ODT] 4 mg PO Q4H PRN #30 tab.dis 11/05/17 [Rx] Hyoscyamine [Levsin] 0.125 mg SL Q4HR PRN 12/07/17 [History] Acetaminophen [Tylenol] 650 mg PO Q6H cup 12/24/17 [Rx] HYDROmorphone [Dilaudid] 2 - 4 mg PO Q4H PRN #30 tablet 12/24/17 [Rx] Past Medical History HEENT History: Reports: Allergic Rhinitis, Impaired Vision Respiratory History: Reports: Bronchitis, Recurrent Gastrointestinal History: Reports: GERD Genitourinary History: Reports: None Musculoskeletal History: Reports: Back Pain, Chronic, Osteoarthritis Psychiatric History: Reports: Depression Endocrine/Metabolic History: Reports: Obesity/BMI 30+ Hematologic History: Reports: B12 Deficiency, Folic Acid - Infectious Disease History Infectious Disease History: Reports: Chicken Pox - Past Surgical History HEENT Surgical History: Reports: Other (See Below) Other HEENT Surgeries/Procedures: Tear duct opened up - left eye Respiratory Surgical History: Reports: None GI Surgical History: Reports: Bariatric Procedure, EGD, Other (See Below) Other GI Surgeries/Procedures: egd dil 12/07/17, 12/18/17 Endocrine Surgical History: Reports: None Musculoskeletal Surgical History: Reports: Arthroscopic Knee Social & Family History - Family History Family Medical History: Noncontributory - Tobacco Use Smoking Status *Q: Former Smoker Years of Tobacco use: 10 Packs/Tins Daily: 1 Used Tobacco, but Quit: Yes Month/Year Tobacco Last Used: 01/2017 Second Hand Smoke Exposure: No - Caffeine Use Caffeine Use: Reports: None - Alcohol Use Days Per Week of Alcohol Use: 0 - Recreational Drug Use Recreational Drug Use: No ED ROS GENERAL - Review of Systems Review Of Systems: See Below Constitutional: Denies: Fever, Chills HEENT: Reports: No Symptoms Respiratory: Reports: No Symptoms Cardiovascular: Reports: No Symptoms GI/Abdominal: Reports: Abdominal Pain, Flatus, Nausea : Reports: No Symptoms ED EXAM, GI/ABD - Physical Exam Exam: See Below Exam Limited By: No Limitations General Appearance: Alert, WD/WN, No Apparent Distress Respiratory/Chest: No Respiratory Distress GI/Abdominal Exam: Soft, Tender (Generalized), Other (Obese) Course - Vital Signs Last Recorded V/S: Last Vital Signs Temp 97.1 F 12/30/17 18:10 Pulse 94 12/30/17 18:10 Resp 18 12/30/17 18:10 BP 128/75 12/30/17 18:10 Pulse Ox 94 L 12/30/17 18:10 - Orders/Labs/Meds Orders: Active Orders 24 hr Category Date Time Status Peripheral IV Care [RC] . DIRECTED Care 12/30/17 18:36 Ordered Lactated Ringers [Ringers, Lactated] 1,000 ml Med 12/30/17 18:36 Ordered IV BOLUS Sodium Chloride 0.9% [Saline Flush] Med 12/30/17 18:36 Ordered 10 ml FLUSH ASDIRECTED PRN Peripheral IV Insertion Adult [OM.PC] Urgent Oth 12/30/17 18:36 Ordered Medication Orders Lactated Ringer's (Ringers, Lactated) 1,000 mls @ 125 mls/hr IV BOLUS ONE Stop: 12/31/17 02:35 Sodium Chloride (Saline Flush) 10 ml FLUSH ASDIRECTED PRN PRN Reason: Keep Vein Open Meds: Medications Generic Name Dose Route Start Last Admin Trade Name Freq PRN Reason Stop Dose Admin Lactated Ringer's 1,000 mls @ 125 mls/hr 12/30/17 18:36 Ringers, Lactated IV 12/31/17 02:35 BOLUS ONE Sodium Chloride 10 ml 12/30/17 18:36 Saline Flush FLUSH ASDIRECTED PRN Keep Vein Open Departure - Departure Time of Disposition: 19:01 Disposition: Admitted As Inpatient 68 Condition: Good Clinical Impression: Abdominal pain Qualifiers: Abdominal location: generalized Qualified Code(s): R10.84 - Generalized abdominal pain - Discharge Information Referrals: Mandy Bob PA-C [Primary Care Provider] - - My Orders Last 24 Hours: My Active Orders 12/30/17 18:36 Peripheral IV Care [RC] . DIRECTED Lactated Ringers [Ringers, Lactated] 1,000 ml IV BOLUS Sodium Chloride 0.9% [Saline Flush] 10 ml FLUSH ASDIRECTED PRN Peripheral IV Insertion Adult [OM.PC] Urgent - Assessment/Plan Last 24 Hours: My Active Orders 12/30/17 18:36 Peripheral IV Care [RC] . DIRECTED Lactated Ringers [Ringers, Lactated] 1,000 ml IV BOLUS Sodium Chloride 0.9% [Saline Flush] 10 ml FLUSH ASDIRECTED PRN Peripheral IV Insertion Adult [OM.PC] Urgent Plan: Assessment Acuity = acute Site and laterality = generalized abdominal pain concern for gallbladder dysfunction complicated patient with known history of gastric bypass Etiology = unclear etiology Manifestations = none Location of injury = Home Lab values = none Plan Called discussed case Dr. Pagan recommended hospital admission plan for CCK/ HIDA scan in the morning he will evaluate patient hospital This note was dictated using [employer] voice recognition software please call with any questions on syntax or hannah.
[2017-12-30] MEDS ORDERED: HYDROmorphone/Normal Saline 15 MG/30 ML PCA IV SCH (19:15)
[2017-12-30] MEDS: Lactated Ringers 1,000 ML IV SCH (20:08)
[2017-12-30] MEDS: HYDROmorphone/Normal Saline 15 MG/30 ML PCA IV SCH (20:34)
[2017-12-30] MEDS ORDERED: Naloxone 0.4 MG/ML SDV IV PRN (20:48)
[2017-12-31] MEDS: diphenhydrAMINE 50 MG/ML SDV IVPUSH PRN ×2 (02:48→07:28)
[2017-12-31] MEDS: Lactated Ringers 1,000 ML IV SCH ×3 (02:48→21:36)
--- NOTE | 2017-12-31 13:13 | NM ---
Cholescintigraphy w Pharm Int HISTORY: Dilated gallbladder on CT Hepatobiliary imaging study is obtained following intravenous administration of 5.41 millicuries tech netium 99m Choletec. Ejection fraction portion of the study is obtained approximately 165 minutes int o the exam following intravenous administration of 2.21 micrograms of CCK. FINDINGS: Radiotracer uptake in the liver is homogeneous. Common bile duct and gallbladder activity seen at 60 minutes. GI tract activity can be seen at 165 minutes. Calculated a gallbladder ejection fraction is mildly low measuring 30% (normal 35% and above). IMPRESSION: Hepatobiliary imaging portion of the study is within normal limits of the delayed visualization of ac tivity in the GI tract. Gallbladder ejection fraction is mildly low measuring 30%. No definite findin gs to suggest acute cholecystitis.
--- NOTE | 2017-12-31 18:50 | PCM.HP ---
H&P History of Present Illness - General Date of Service: 12/31/17 Admit Problem/Dx: Admission Diagnosis/Problem Admission Diagnosis/Problem Abdominal pain Source of Information: Patient History Limitations: Reports: No Limitations - History of Present Illness Initial Comments - Free Text/Narative: Pt had a laparoscopic procedure last week and was discharged Thursday. Pt states after she got home she started getting abdominal pain that gradually worsened so she presented to the ER in [place] and they sent her here on 12/30/2017. Pt is having diffuse abdominal pain with nausea and decreased appetite. Pts LFT's and bilirubin are high and hida scan had lower ejection fraction than normal. Pt states she hasn't had any vomiting or diarrhea but she has only had one BM since surgery and that was on Thursday. Pt states she is doing well now on a BRICKLAYER APPRENTICE dilaudad and only has to use it about once an hour or so. Pt has been up ambulating and showering. Onset of Symptoms: Reports: Other (started when she got home last week from surgery, has gotten worse) Duration of Symptoms: Reports: Constant Location: Reports: Abdomen Quality: Reports: Ache Severity: Moderate Improves with: Reports: Medication Worsens with: Reports: Eating, Movement Associated Symptoms: Reports: Loss of Appetite Middle Abdominal Pain Score (Numeric/FACES): 3 - Related Data Allergies/Adverse Reactions: Allergies Allergy/AdvReac Type Severity Reaction Status Date / Time amitriptyline Allergy Hallucinati Verified 12/21/17 20:38 ons celecoxib [From Celebrex] Allergy Agitation Verified 12/21/17 20:38 NSAIDS (Non-Steroidal Allergy Cannot Verified 12/21/17 20:38 Anti-Inflamma Remember ketoprofen AdvReac Diarrhea Verified 12/21/17 20:38 Home Medications: Home Meds Cyclobenzaprine [Flexeril] 10 mg PO TID PRN 10/30/17 [History] Escitalopram [Lexapro] 10 mg PO DAILY 10/30/17 [History] traZODone HCl [Trazodone HCl] 50 mg PO BEDTIME PRN 10/30/17 [History] Ondansetron [Zofran ODT] 4 mg PO Q4H PRN #30 tab.dis 11/05/17 [Rx] Hyoscyamine [Levsin] 0.125 mg SL Q4HR PRN 12/07/17 [History] Acetaminophen [Tylenol] 650 mg PO Q6H cup 12/24/17 [Rx] HYDROmorphone [Dilaudid] 2 - 4 mg PO Q4H PRN #30 tablet 12/24/17 [Rx] Past Medical History HEENT History: Reports: Allergic Rhinitis, Impaired Vision Respiratory History: Reports: Bronchitis, Recurrent Gastrointestinal History: Reports: GERD Genitourinary History: Reports: None Musculoskeletal History: Reports: Back Pain, Chronic, Osteoarthritis Psychiatric History: Reports: Depression Endocrine/Metabolic History: Reports: Obesity/BMI 30+ Hematologic History: Reports: B12 Deficiency, Folic Acid - Infectious Disease History Infectious Disease History: Reports: Chicken Pox - Past Surgical History HEENT Surgical History: Reports: Other (See Below) Other HEENT Surgeries/Procedures: Tear duct opened up - left eye Respiratory Surgical History: Reports: None GI Surgical History: Reports: Bariatric Procedure, EGD, Other (See Below) Other GI Surgeries/Procedures: egd dil 12/07/17, 12/18/17 Endocrine Surgical History: Reports: None Musculoskeletal Surgical History: Reports: Arthroscopic Knee Social & Family History - Family History Family Medical History: Noncontributory - Tobacco Use Smoking Status *Q: Former Smoker Years of Tobacco use: 10 Packs/Tins Daily: 1 Used Tobacco, but Quit: Yes Month/Year Tobacco Last Used: January 2017 Second Hand Smoke Exposure: No - Caffeine Use Caffeine Use: Reports: None - Alcohol Use Days Per Week of Alcohol Use: 0 - Recreational Drug Use Recreational Drug Use: No H&P Review of Systems - Review of Systems: Review Of Systems: See Below General: Reports: Decreased Appetite HEENT: Reports: No Symptoms Pulmonary: Reports: No Symptoms Cardiovascular: Reports: No Symptoms Gastrointestinal: Reports: Abdominal Pain (Pt states that the pain is throughout whole abdomen bust mostly around her SAMIR drains that were left in from surgery last week. Pt has had nausea and decreased appetite with this. Pt has only had one BM since surgery last week. Pt is now tolerating clear liquids. ), Decreased Appetite, Nausea Genitourinary: Reports: No Symptoms Musculoskeletal: Reports: No Symptoms Skin: Reports: No Symptoms Exam - Exam Exam: See Below - Vital Signs Vital Signs: Last Vital Signs Temp 36.2 C 12/31/17 15:27 Pulse 87 12/31/17 15:27 Resp 16 12/31/17 15:27 BP 120/70 12/31/17 15:27 Pulse Ox 96 12/31/17 15:27 Weight: 110.3 kg - Exam General: Alert, Oriented, Cooperative HEENT: EOMI, Pupils Equal Lungs: Clear to Auscultation, Normal Respiratory Effort Cardiovascular: Regular Rate, Regular Rhythm, Normal S1, Normal S2 GI/Abdominal Exam: Normal Bowel Sounds, Soft, Tender Skin: Warm, Incision (incisions are healing well and are seen without erythema or drainage.) Neuro Extensive - Mental Status: Alert, Oriented x3, Normal Mood/Affect Psychiatric: Alert, Normal Affect, Normal Mood Physical Exam Comments:: Pt is AO X3 and affect is bright. Pt is sitting up in bed eating jello. - Patient Data Lab Results Last 24 hrs: Laboratory Results - last 24 hr 12/31/17 12/31/17 12/31/17 Range/Units 05:07 05:07 08:30 WBC 5.4 (4.5-11.0) K/uL RBC 4.41 (3.30-5.50) M/uL Hgb 12.1 (12.0-15.0) g/dL Hct 37.7 (36.0-48.0) % MCV 86 (80-98) fL MCH 27 (27-31) pg MCHC 32 (32-36) % Plt Count 238 (150-400) K/uL Neut % (Auto) 51 (36-66) % Lymph % (Auto) 31 (24-44) % [place] % (Auto) 14 H (2-6) % Eos % (Auto) 4 (2-4) % Baso % (Auto) 0 (0-1) % Sodium 143 (140-148) mmol/L Potassium 3.9 (3.6-5.2) mmol/L Chloride 106 (100-108) mmol/L Carbon Dioxide 28 (21-32) mmol/L Anion Gap 8.7 (5.0-14.0) mmol/L BUN 6 L (7-18) mg/dL Creatinine 0.4 L (0.6-1.0) mg/dL Est Cr Clr Drug Dosing 190.90 mL/min Estimated GFR (MDRD) > 60 (>60) Glucose 83 (74-106) mg/dL Calcium 8.2 L (8.5-10.1) mg/dL Total Bilirubin 2.1 H (0.2-1.0) mg/dL AST 318 H (15-37) U/L ALT 212 H (12-78) U/L Alkaline Phosphatase 205 H (46-116) U/L Total Protein 5.6 L (6.4-8.2) g/dL Albumin 2.4 L (3.4-5.0) g/dL Globulin 3.2 (2.3-3.5) g/dL Albumin/Globulin Ratio 0.8 L (1.2-2.2) Amylase 49 (25-115) U/L Lipase 181 (73-393) U/L Result Diagrams: 12/31/17 05:07 12/31/17 05:07 - Problem List (1) Abdominal pain SNOMED Code(s): 84674371 ICD Code: R10.9 - UNSPECIFIED ABDOMINAL PAIN Status: Acute Current Visit : Yes Qualifiers: Abdominal location: generalized Qualified Code(s): R10.84 - Generalized abdominal pain (2) Status post laparoscopic surgery SNOMED Code(s): 092061268, 803271959, 672130624 ICD Code: Z98.890 - OTHER SPECIFIED POSTPROCEDURAL STATES Status: Acute Current Visit: No Problem Details: Drainage and repair of anastomotic leak (3) Status post gastric bypass for obesity SNOMED Code(s): 227671227, 895002643, 315479423, 564493904 ICD Code: Z98.84 - BARIATRIC SURGERY STATUS Status: Chronic Current Visit : No Problem List Initiated/Reviewed/Updated: Yes Orders Last 24hrs: Active Orders 24 hr Category Date Time Status Patient Status [ADT] Routine ADT 12/30/17 19:03 Active Communication Order [RC] ASDIRECTED Care 12/31/17 13:11 Active Overnight Pulse Oximetry [RC] Click to Edit Care 12/30/17 20:48 Active Oxygen Therapy [RC] PRN Care 12/30/17 19:03 Active Peripheral IV Care [RC] . DIRECTED Care 12/30/17 18:36 Active Up With Assistance [RC] ASDIRECTED Care 12/30/17 19:03 Active Vital Signs [RC] Q4H Care 12/30/17 19:03 Active NPO After Midnight [Nothing per Oral After Midnight Diet 12/31/17 Dinner Active Diet] [DIET] Nothing per Oral After Midnight Diet [DIET] Diet 12/31/17 Dinner Active AMYLASE [CHEM] Routine Lab 01/01/18 04:00 Ordered COMPREHENSIVE METABOLIC PN,CMP [CHEM] Timed Lab 01/01/18 04:00 Ordered LIPASE [CHEM] Routine Lab 01/01/18 04:00 Ordered HYDROmorphone/Normal Saline [Dilaudid BRICKLAYER APPRENTICE 15 MG in NS Med 12/30/17 20:45 Active 30 ML] 15 mg IV ASDIRECTED Lactated Ringers [Ringers, Lactated] 1,000 ml Med 12/30/17 19:15 Active IV ASDIRECTED Naloxone [Narcan] Med 12/30/17 20:48 Active 0.1 mg IV ASDIRECTED PRN Ondansetron [Zofran] Med 12/30/17 19:03 Active 4 mg IV Q4H PRN Sodium Chloride 0.9% [Saline Flush] Med 12/30/17 18:36 Active 10 ml FLUSH ASDIRECTED PRN diphenhydrAMINE [Benadryl] Med 12/31/17 02:33 Active 50 mg IVPUSH Q4H PRN Peripheral IV Insertion Adult [OM.PC] Urgent Oth 12/30/17 18:36 Ordered Pulse Oximetry Continuous Monitoring [OM.PC] Routine Oth 12/30/17 20:48 Ordered SCD [Sequential Compression Device] [OM.PC] Routine Oth 12/31/17 11:38 Ordered Resuscitation Status Routine Resus Stat 12/30/17 19:03 Ordered Medication Orders Diphenhydramine HCl (Benadryl) 50 mg IVPUSH Q4H PRN PRN Reason: Itching Last Admin: 12/31/17 07:28 Dose: 50 mg Admin: 12/31/17 02:48 Dose: 50 mg Hydromorphone HCl (Dilaudid Graffiti Cleaner 15 Mg In Ns 30 Ml) 15 mg IV ASDIRECTED BOBBY; Protocol Last Admin: 12/30/17 20:34 Dose: 15 mg Lactated Ringer's (Ringers, Lactated) 1,000 mls @ 125 mls/hr IV ASDIRECTED BOBBY Last Admin: 12/31/17 12:42 Dose: 125 mls/hr Infusion: 12/31/17 10:48 Dose: 125 mls/hr Admin: 12/31/17 02:48 Dose: 125 mls/hr Infusion: 12/31/17 02:48 Dose: 125 mls/hr Admin: 12/30/17 20:08 Dose: 125 mls/hr Naloxone HCl (Narcan) 0.1 mg IV ASDIRECTED PRN PRN Reason: decreased respiratory rate Ondansetron HCl (Zofran) 4 mg IV Q4H PRN PRN Reason: Nausea/Vomiting Sodium Chloride (Saline Flush) 10 ml FLUSH ASDIRECTED PRN PRN Reason: Keep Vein Open Last Admin: 12/30/17 19:24 Dose: 10 ml Assessment/Plan Comment:: Assessment: Cholecystitis Plan: -Continue BRICKLAYER APPRENTICE dilaudad for pain -Pt to be NPO after midnight -In AM draw another CRP, amylase, and lipase -Will do laparoscopic cholecystectomy tomorrow AM -will remove bothersome SAMIR drains during surgery
[2017-12-31] MEDS: Ondansetron 4 MG/2 ML SDV IV PRN (21:39)
[2018-01-01] MEDS: Lactated Ringers 1,000 ML IV SCH ×2 (05:34→13:12)
[2018-01-01] MEDS: HYDROmorphone/Normal Saline 15 MG/30 ML PCA IV SCH (07:18)
[2018-01-01] MEDS ORDERED: fentaNYL 250 MCG/5 ML SDV ONE ×2 (12:13→16:38)
[2018-01-01] MEDS ORDERED: Ondansetron 4 MG/2 ML SDV ONE (12:14)
[2018-01-01] MEDS ORDERED: Succinylcholine 200 MG/10 ML MDV ONE (12:14)
[2018-01-01] MEDS ORDERED: Rocuronium 50 MG/5 ML Vial ONE (12:14)
[2018-01-01] MEDS ORDERED: Propofol 200 MG/20 ML SDV ONE (12:14)
[2018-01-01] MEDS ORDERED: Neostigmine Methylsulfate 1 MG/ML 5 ML Syringe ONE (12:14)
[2018-01-01] MEDS ORDERED: Glycopyrrolate 0.2 MG/ML 5 ML MDV ONE (12:14)
[2018-01-01] MEDS ORDERED: Dexamethasone 4 MG/ML SDV ONE (12:14)
[2018-01-01] MEDS ORDERED: Ropivacaine 55 ML, Dexamethasone 8 MG, EPINEPHrine 0.4 MG, Sodium Chloride 0.9% 22.6 ML NERVRT SCH ×4 (12:45)
[2018-01-01] MEDS ORDERED: Ampicillin/Sulbactam Na 3 GM in Sodium Chloride 0.9% 100 ML IV ONE (12:45)
[2018-01-01] MEDS ORDERED: Bupivacaine 0.5%/EPINEPHrine 1:200,000 50 ML MDV ONE (14:27)
--- NOTE | 2018-01-01 16:19 | PCM.PN ---
- General Info Date of Service: 01/01/18 Functional Status: Reports: Pain Controlled, Ambulating, Urinating - Review of Systems Pulmonary: Reports: No Symptoms Cardiovascular: Reports: No Symptoms Gastrointestinal: Reports: Abdominal Pain (mostly around SAMIR drains), Constipation, Nausea Genitourinary: Reports: No Symptoms Skin: Reports: No Symptoms (Pt states she is doing well with the SIZER MACHINE dilaudad. Pt has only had one BM since surgery last week. pt was tolerating clear liquids here with us last night until she was NPO for surgery today. ) - Patient Data Vitals - Most Recent: Last Vital Signs Temp 36.1 C 01/01/18 15:28 Pulse 92 01/01/18 15:28 Resp 16 01/01/18 15:28 BP 131/68 01/01/18 15:28 Pulse Ox 97 01/01/18 15:28 Weight - Most Recent: 110.3 kg I&O - Last 24 Hours: Intake & Output 01/01/18 01/01/18 01/01/18 06:59 14:59 22:59 Intake Total 1370 Output Total 350 Balance 1020 Lab Results Last 24 Hours: Laboratory Results - last 24 hr 01/01/18 Range/Units 04:25 Sodium 139 L (140-148) mmol/L Potassium 4.4 (3.6-5.2) mmol/L Chloride 104 (100-108) mmol/L Carbon Dioxide 28 (21-32) mmol/L Anion Gap 11.4 (5.0-14.0) mmol/L BUN 2 L D (7-18) mg/dL Creatinine 0.4 L (0.6-1.0) mg/dL Est Cr Clr Drug Dosing 190.39 mL/min Estimated GFR (MDRD) > 60 (>60) Glucose 85 (74-106) mg/dL Calcium 7.9 L (8.5-10.1) mg/dL Total Bilirubin 1.9 H (0.2-1.0) mg/dL AST 275 H (15-37) U/L ALT 203 H (12-78) U/L Alkaline Phosphatase 184 H (46-116) U/L Total Protein 5.4 L (6.4-8.2) g/dL Albumin 2.2 L (3.4-5.0) g/dL Globulin 3.2 (2.3-3.5) g/dL Albumin/Globulin Ratio 0.7 L (1.2-2.2) Amylase 45 (25-115) U/L Lipase 180 (73-393) U/L Med Orders - Current: Current Medications Ropivacaine 55 ml/Dexamethasone 8 mg/Epinephrine HCl 0.4 mg/ Sodium Chloride 22.6 ml 0 ml NERVRT ASDIRECTED BOBBY Diphenhydramine HCl (Benadryl) 50 mg IVPUSH Q4H PRN PRN Reason: Itching Last Admin: 12/31/17 07:28 Dose: 50 mg Hydromorphone HCl (Dilaudid Assistant Librarian 15 Mg In Ns 30 Ml) 15 mg IV ASDIRECTED BOBBY; Protocol Last Admin: 01/01/18 07:18 Dose: 15 mg Lactated Ringer's (Ringers, Lactated) 1,000 mls @ 125 mls/hr IV ASDIRECTED BOBBY Last Admin: 01/01/18 13:12 Dose: 125 mls/hr Naloxone HCl (Narcan) 0.1 mg IV ASDIRECTED PRN PRN Reason: decreased respiratory rate Ondansetron HCl (Zofran) 4 mg IV Q4H PRN PRN Reason: Nausea/Vomiting Last Admin: 12/31/17 21:39 Dose: 4 mg Sodium Chloride (Saline Flush) 10 ml FLUSH ASDIRECTED PRN PRN Reason: Keep Vein Open Last Admin: 12/30/17 19:24 Dose: 10 ml Discontinued Medications Bupivacaine HCl/Epinephrine Bitart (Marcaine 0.5%/Epinephrine 1:200,000) Confirm Administered Dose 50 ml .ROUTE .STK-MED ONE Stop: 01/01/18 14:28 Dexamethasone (Dexamethasone) Confirm Administered Dose 4 mg .ROUTE .STK-MED ONE Stop: 01/01/18 12:15 Fentanyl (Sublimaze) Confirm Administered Dose 250 mcg .ROUTE .STK-MED ONE Stop: 01/01/18 12:14 Glycopyrrolate (Robinul) Confirm Administered Dose 1 mg .ROUTE .STK-MED ONE Stop: 01/01/18 12:15 Hydromorphone HCl (Dilaudid Assistant Librarian 15 Mg In Ns 30 Ml) 15 mg IV ASDIRECTED BOBBY; Protocol Lactated Ringer's (Ringers, Lactated) 1,000 mls @ 125 mls/hr IV BOLUS ONE Stop: 12/31/17 02:35 Last Admin: 12/30/17 19:21 Dose: 125 mls/hr Ampicillin Sodium/Sulbactam (Sodium 3 gm/ Sodium Chloride) 100 mls @ 200 mls/ hr IV ONCALL ONE Stop: 01/01/18 13:14 Last Admin: 01/01/18 16:06 Dose: 200 mls/hr Neostigmine Methylsulfate (Neostigmine) Confirm Administered Dose 5 mg .ROUTE .STK-MED ONE Stop: 01/01/18 12:15 Ondansetron HCl (Zofran) Confirm Administered Dose 4 mg .ROUTE .STK-MED ONE Stop: 01/01/18 12:15 Propofol (Diprivan 20 Ml) Confirm Administered Dose 200 mg .ROUTE .STK-MED ONE Stop: 01/01/18 12:15 Rocuronium [place] (Zemuron) Confirm Administered Dose 50 mg .ROUTE .STK-MED ONE Stop: 01/01/18 12:15 Succinylcholine Chloride (Quelicin) Confirm Administered Dose 200 mg .ROUTE .STK -MED ONE Stop: 01/01/18 12:15 - Exam General: Alert, Oriented, Cooperative, No Acute Distress HEENT: Pupils Equal, EOMI Lungs: Clear to Auscultation, Normal Respiratory Effort Cardiovascular: Regular Rate, Regular Rhythm, No Murmurs GI/Abdominal Exam: Soft, Tender Skin: Warm, Dry, Intact Wound/Incisions: Healing Well, No Drainage Neurological: No New Focal Deficit, Normal Speech Psy/Mental Status: Alert, Normal Affect, Normal Mood - Problem List & Annotations (1) Abdominal pain SNOMED Code(s): 87582338 Code(s): R10.9 - UNSPECIFIED ABDOMINAL PAIN Status: Acute Current Visit: Yes Qualifiers: Abdominal location: generalized Qualified Code(s): R10.84 - Generalized abdominal pain (2) Status post laparoscopic surgery SNOMED Code(s): 998549853, 292033158, 362264574 Code(s): Z98.890 - OTHER SPECIFIED POSTPROCEDURAL STATES Status: Acute Current Visit: No Annotation/Comment:: Drainage and repair of anastomotic leak (3) Status post gastric bypass for obesity SNOMED Code(s): 656918575, 681944510, 790626825, 513027591 Code(s): Z98.84 - BARIATRIC SURGERY STATUS Status: Chronic Current Visit : No - Problem List Review Problem List Initiated/Reviewed/Updated: Yes - Assessment Assessment:: -cholecystitis - Plan Plan:: Plan: -Continue SIZER MACHINE dilaudad for pain -pt to remain NPO for surgery this afternoon -pt to have laparoscopic cholecystectomy with Dr. Pagan -will remove bothersome SAMIR drains during surgery
[2018-01-01] MEDS ORDERED: hydrOXYzine HCl 100 MG/2 ML SDV IM ONE (17:44)
[2018-01-01] MEDS ORDERED: Dextrose 5%-Lactated Ringers 1,000 ML IV SCH (18:45)
[2018-01-01] MEDS ORDERED: diphenhydrAMINE 25 MG Cap PO PRN (18:49)
[2018-01-01] MEDS ORDERED: Acetaminophen/HYDROcodone 325-5 MG Tab PO PRN (18:56)
[2018-01-01] MEDS: Pantoprazole 40 MG Vial IVPUSH SCH (19:49)
[2018-01-01] MEDS: diphenhydrAMINE 50 MG/ML SDV IVPUSH PRN (22:18)
[2018-01-01] MEDS: Ampicillin/Sulbactam Na 3 GM in Sodium Chloride 0.9% 100 ML IV SCH (23:48)
[2018-01-02] MEDS: Dextrose 5%-Lactated Ringers 1,000 ML IV SCH ×2 (05:53→23:42)
[2018-01-02] MEDS: Ampicillin/Sulbactam Na 3 GM in Sodium Chloride 0.9% 100 ML IV SCH ×3 (05:55→18:13)
[2018-01-02] MEDS: Acetaminophen/HYDROcodone 108-2.5 MG/5 ML Soln 15 ML UD Cup PO PRN ×2 (09:54→13:32)
[2018-01-02] MEDS: Magnesium Sulfate/Water 2 GM in Premix Bag 1 BAG IV SCH ×3 (11:47→21:59)
[2018-01-02] MEDS ORDERED: MVI, Adult with Vitamin K 10 ML, Chromium/Copper/Mang/Selen/Zn 1 ML, Thiamine 100 MG in... IV ONE ×4 (12:00)
[2018-01-02] MEDS: Pantoprazole 40 MG Vial IVPUSH SCH (19:37)
[2018-01-02] MEDS: Ondansetron 4 MG/2 ML SDV IV PRN (19:46)
[2018-01-02] MEDS ORDERED: Magnesium Citrate Solution 296 ML Bottle PO ONE (20:33)
[2018-01-03] MEDS: Ampicillin/Sulbactam Na 3 GM in Sodium Chloride 0.9% 100 ML IV SCH ×3 (00:15→11:35)
[2018-01-03] MEDS: Magnesium Sulfate/Water 2 GM in Premix Bag 1 BAG IV SCH ×2 (03:06→09:25)
[2018-01-03] MEDS: Acetaminophen/HYDROcodone 108-2.5 MG/5 ML Soln 15 ML UD Cup PO PRN (09:37)
[2018-01-03] MEDS ORDERED: Ondansetron 4 MG Tab.DIS PO STA (11:30)
--- NOTE | 2018-01-03 17:27 | PN ---
DATE OF SERVICE: 01/02/2018 The patient has been afebrile with stable vital signs. She feels somewhat better today. We will switch over to oral Hycet elixir, which we think will go better with a recent gastric bypass status. Otherwise, continue with step-2 diet. We will have her take some protein drinks as well. Magnesium is marginally low, it will be supplemented. Otherwise, her bilirubin has come down a little bit, we will recheck that tomorrow. She may be ready for discharge home tomorrow. Spencer Pagan MD /[id number]
[2018-01-03] MEDS ORDERED: Pantoprazole 40 MG Vial IVPUSH SCH (20:00)
--- NOTE | 2018-01-04 09:33 | DISCH ---
FINAL DIAGNOSES: Subacute and chronic cholecystitis with focal gallbladder perforation and pericholecystic inflammatory fluid collection. SECONDARY DIAGNOSES: 1. Gastric bypass status. 2. Recent perforation of gastrojejunostomy. 3. History of depression. 4. History of osteoarthritis. OPERATIVE PROCEDURE: This was done on 01/01/2018; diagnostic laparoscopy with: 1. Cholecystectomy. 2. Drainage of bilious pericholecystic inflammatory fluid collection. HOSPITAL COURSE: This is a 37-year-old status post recent Tha-en-Y gastric bypass. She came in for upper GI endoscopy and had a dilation. Around 3 to 4 days later, she developed pain and was noted to have some free air, was transferred back at that time, and then had the gastrojejunostomy sealed up. She had gone home with two drains, and she then presented once again with upper abdominal pain. This was more on the right side. Workup eventually included a HIDA scan, which showed a below normal ejection fraction and slow filling of the gallbladder and a CCK injection causing reproduction of the patient's symptoms. Given this, the patient underwent a cholecystectomy on 01/01/2018. The gallbladder was markedly inflamed and had a focal area of perforation with pericholecystic inflammatory fluid collection, which was primarily bilious. It was also noted that preoperatively, her bilirubin had gotten up to 2.1, along with significant elevation of the liver enzymes. Postoperatively, the patient has had no significant problems. She is eating well and moving her bowels. She will be continued on a step-2 diet until the first appointment, which will be with Mandy Bob on 01/11/2018 in [facility]. She will continue the home medications, plus Hycet elixir 15 mL q.4 hours p.r.n. pain, and she will be instructed to start her vitamins and other supplements next weekend.
--- NOTE | 2018-01-12 09:55 | OR ---
DATE OF PROCEDURE: 01/01/2018 PREOPERATIVE DIAGNOSIS: Subacute and chronic cholecystitis. POSTOPERATIVE DIAGNOSES: Subacute and acute cholecystitis with focal necrosis and adjacent bilious inflammatory fluid collection underlying the gallbladder. OPERATIVE PROCEDURE: Diagnostic laparoscopy with: 1. Cholecystectomy (16560). 2. Drainage of inflammatory bilious fluid collection posterior to the gallbladder (211575). ANESTHESIA: General. HOMICIDE SQUAD LIEUTENANT: Mandy Bob PA-C and KRISHNA Roy. INDICATION FOR PROCEDURE: The patient was originally admitted with right-sided abdominal pain. The initial workup was unremarkable, but a CCK-stimulated HIDA scan obtained yesterday showed a very delayed filling of the gallbladder, below normal ejection fraction, and the CCK stimulation causing reproduction of the patient's pain. Given this, she is to undergo cholecystectomy at this time. Potential risks including bleeding, infection, injury to the underlying viscera such as common bile duct, possible migration of stones in the common bile duct requiring additional procedure for correction as well as the remote possibility of cardiopulmonary, septic, or hemorrhagic complications leading to were discussed, and the patient wishes to proceed. DETAILS OF PROCEDURE: The patient was taken to the operating room and placed in a supine position. After general endotracheal anesthesia was induced, the abdomen was prepped and draped. A transverse incision just right of the umbilicus was made and carried down through skin and subcutaneous tissue. The peritoneal cavity was entered under direct vision with an Optiview trocar and inflated to 15 mmHg pressure of CO2. Laparoscope was then reinserted. No underlying trocar insertion site injuries were seen. Following this, 2 additional trocars, 1 in the epigastrium, 1 in the right subcostal area were placed and bilateral subcostal transverse abdominis plane blocks were then placed with direct visualization of the needle tip and the correct plane and solution being injected bilaterally. At this point, the gallbladder was noted to be quite edematous and there was some necrotic fatty tissue along its edges as well as some probable areas of necrosis within the gallbladder wall. Interestingly, there was a bile-stained fluid collection with intense inflammation subjacent to the gallbladder and posterior gallbladder running along the base of the transverse mesocolon and to the area posterior to the gallbladder over the peritoneal edges at that level. This was evacuated and cultures were obtained. Some adhesions to the gallbladder were then taken down between the gallbladder and the omentum with a Harmonic scalpel and the gallbladder retracted anteriorly and laterally. As one dissected, this revealed obviously quite a bit in the way of fat necrosis present and the dissection eventually identified the gallbladder and cystic duct junction as well as the adjacent cystic artery. Both structures were clipped 3 times proximally and once distally and divided. Gallbladder was then delivered through the epigastric trocar site. It was noted to contain some small stones. The area of dissection was inspected. A Ky-Saba drain was then brought out through the right lateral trocar site and placed into the area of the bilious fluid collection and the gallbladder fossa. At that point, no bleeding or bile leaks or other problems were noted. Trocars removed. The fascia at the 12 mm site was closed with 0 Vicryl stitch and the skin with 4-0 Vicryl skin stitch. The patient was taken to the recovery room in satisfactory condition. Spencer Pagan MD /[id number]
== END 2018-01-03 12:14 | disposition home or self-care (01) | DRG 417 ==
LOC: JP.ED 17:36 → UNDOADMOB 19:03 → JP.2SS 19:03 → OBSVTOIN 12-31 07:05
PROVIDERS: ADMIT Surgery; ATTEND Surgery
PROC: 0FT44ZZ Resection of Gallbladder, Percutaneous Endoscopic Approach (ICD-10-PCS; principal; 2018-01-01)
PROC: 0W9G4ZX Drainage of Peritoneal Cavity, Percutaneous Endoscopic Approach, Diagnostic (ICD-10-PCS; 2018-01-01)
PROC: 3E0T3BZ Introduction of Anesthetic Agent into Peripheral Nerves and Plexi, Percutaneous Approach (ICD-10-PCS; 2018-01-01)
DX: K81.1 Chronic cholecystitis (principal); K82.2 Perforation of gallbladder; R18.8 Other ascites; K81.0 Acute cholecystitis; Z98.84 Bariatric surgery status; Z98.0 Intestinal bypass and anastomosis status; Z98.890 Other specified postprocedural states; F32.9 Major depressive disorder, single episode, unspecified; M54.9 Dorsalgia, unspecified; G89.29 Other chronic pain; M19.90 Unspecified osteoarthritis, unspecified site; Z87.891 Personal history of nicotine dependence; H54.7 Unspecified visual loss; Z88.6 Allergy status to analgesic agent; Z88.8 Allergy status to other drugs, medicaments and biological substances
CPT/HCPCS: 36415; 78227; 78227-26; 80053; 82150; 83690; 83735; 84100; 85025; 85027; 87070; 87075; 87205; 88304; 94762; 96361; 96374; 99285-25; A9270-GY; C9113; J0171; J0295; J0330; J1100; J1170; J1200; J2405; J2704; J2710; J2795; J3010; J3410; J3411; J3475; J7030; J7042; J7050; J7120

== ENCOUNTER 2018-01-12 09:45 | Day surgery (SDC) | payer OTHER ==
[2018-01-12] MEDS ORDERED: Cyanocobalamin (Vitamin B12) 1,000 MCG/ML SDV IM ONE ×2 (10:00→12:27)
[2018-01-12] MEDS ORDERED: Lactated Ringers 1,000 ML IV ONE (10:00)
[2018-01-12] MEDS ORDERED: Glycopyrrolate 0.2 MG/ML 2 ML SDV IVPUSH ONE (10:00)
[2018-01-12] MEDS ORDERED: fentaNYL 100 MCG/2 ML SDV ONE (10:30)
[2018-01-12] MEDS ORDERED: Midazolam 1 MG/ML 2 ML SDV ONE (10:30)
[2018-01-12] MEDS ORDERED: Propofol 200 MG/20 ML SDV ONE (10:31)
[2018-01-12] MEDS ORDERED: MVI, Adult with Vitamin K 10 ML, Thiamine 100 MG, Chromium/Copper/Mang/Selen/Zn 1 ML in... IV ONE ×4 (11:00)
[2018-01-12] MEDS ORDERED: Thiamine 200 MG/2 ML MDV IM ONE (11:30)
[2018-01-12] MEDS ORDERED: Lactated Ringers 1,000 ML IV SCH (11:30)
[2018-01-12] MEDS ORDERED: HYDROmorphone 1 MG/ML Syringe IVPUSH ONE (11:50)
--- NOTE | 2018-01-16 20:50 | OR ---
DATE OF PROCEDURE: 01/12/2018 PREOPERATIVE DIAGNOSIS: Probable stricture at gastrojejunostomy. POSTOPERATIVE DIAGNOSIS: Moderate stricture at gastrojejunostomy. OPERATIVE PROCEDURE: Upper GI endoscopy with dilation of gastrojejunostomy (07895). ANESTHESIA: IV sedation. INDICATION FOR PROCEDURE: The patient presented with some symptoms of stricturing at her gastrojejunostomy. Plan is to proceed with upper GI endoscopy with dilation as indicated. Potential risks including bleeding and perforation were discussed, and the patient wishes to proceed. DETAILS OF PROCEDURE: The patient was taken to the operating room and placed in a left lateral decubitus position. IV sedation was administered, after which the upper GI endoscope was passed orally through the length of the esophagus and then into the gastric pouch. No retained food or fluid was noted. The patient was noted to have a moderately strictured gastrojejunostomy. A gastrointestinal catheter was then centered across the anastomosis with fluoroscopic surveillance and inflated to 36-Greek size. This was held in position for 1 minute after which the catheter was deflated, withdrawn. The scope was easily passed through the anastomosis. No complications were noted. The patient tolerated the procedure well. Spencer Pagan MD /[id number]
== END 2018-01-12 13:40 | disposition home or self-care (01) ==
LOC: JP.SDS 09:45
PROVIDERS: ATTEND Surgery
DX: K91.89 Other postprocedural complications and disorders of digestive system (principal); Z88.6 Allergy status to analgesic agent; Z88.8 Allergy status to other drugs, medicaments and biological substances
CPT/HCPCS: 43245; J1170; J2250; J2704; J3010; J3411; J3420; J7120; J3490

== ENCOUNTER 2018-02-04 07:53 | Day surgery (SDC) | payer OTHER ==
[2018-02-04] MEDS ORDERED: Glycopyrrolate 0.2 MG/ML 2 ML SDV IVPUSH ONE (08:30)
[2018-02-04] MEDS ORDERED: MVI, Adult with Vitamin K 10 ML, Thiamine 100 MG, Chromium/Copper/Mang/Selen/Zn 1 ML in... IV ONE ×4 (08:30)
[2018-02-04] MEDS ORDERED: Lactated Ringers 1,000 ML IV ONE (08:30)
[2018-02-04] MEDS ORDERED: Cyanocobalamin (Vitamin B12) 1,000 MCG/ML SDV IM ONE (08:30)
[2018-02-04] MEDS ORDERED: Acetaminophen 500 MG Tab PO ONE (10:25)
[2018-02-04] MEDS ORDERED: Thiamine 200 MG/2 ML MDV IV ONE (10:45)
--- NOTE | 2018-02-07 10:11 | OR ---
DATE OF PROCEDURE: 02/04/2018 PREOPERATIVE DIAGNOSIS: Strictured gastrojejunostomy. POSTOPERATIVE DIAGNOSIS: Strictured gastrojejunostomy. PROCEDURE PERFORMED: Upper GI endoscopy with dilation of gastrojejunostomy (44173). ANESTHESIA: IV sedation. INDICATION FOR PROCEDURE: This is a 37-year-old female presenting with probable stricturing, once again in her gastrojejunostomy. Plan is to proceed with upper GI endoscopy with dilation as indicated. Potential risks of the procedure were once again reviewed including risk for perforation and the patient wishes to proceed. DETAILS OF PROCEDURE: The patient was taken to the operating room and placed in a left lateral decubitus position. IV sedation was administered, after which the upper GI endoscope was passed orally through the length of the esophagus and into the gastric pouch. No retained food or fluid was noted. The patient was noted to have a fairly tight stricture at the gastrojejunostomy. Bard gastrointestinal balloon catheter was then centered across the anastomosis and inflated to 36-Z[place]ian size. This was held in position for 1 minute after which the balloon catheter was deflated and withdrawn. The scope was easily passed through the anastomosis. No complications were evident. The patient was taken to the recovery room in satisfactory condition after removal of the scope. Spencer Pagan MD /[id number]
== END 2018-02-04 11:15 | disposition home or self-care (01) ==
LOC: JP.SDS 07:53
PROVIDERS: ATTEND Surgery
DX: K95.89 Other complications of other bariatric procedure (principal); Z88.8 Allergy status to other drugs, medicaments and biological substances; Z88.6 Allergy status to analgesic agent; Z79.899 Other long term (current) drug therapy
CPT/HCPCS: 43245; A9270; J2250; J2704; J3010; J3411; J3420; J7120; J3490

== ENCOUNTER 2018-02-06 00:55 | Inpatient (IN) | payer OTHER ==
[2018-02-06] MEDS ORDERED: fentaNYL 100 MCG/2 ML SDV IVPUSH ONE (02:19)
--- NOTE | 2018-02-06 02:26 | EDM.PDOC ---
ED HPI GENERAL MEDICAL PROBLEM - General Chief Complaint: Abdominal Pain Stated Complaint: BROUGHT IN BY AMBULANCE / MEDICAL Time Seen by Provider: 02/06/18 02:19 Source of Information: Reports: Patient, Old Records History Limitations: Reports: No Limitations - History of Present Illness INITIAL COMMENTS - FREE TEXT/NARRATIVE: This patient was transferred here from [facility] in [place] to the services of Dr. Pagan. Dr. Pagan is well aware of the problems with this patient. She is one of his previous patients and had a Tha-en-Y. She went to the emergency department in [place] and was found to have a pneumoperitoneum. Dr. Pagan was contacted and he accepted the patient he wanted her to come by the emergency department just to assess her stability. Patient says she is starting to get some more abdominal pain is asked for some more pain medication. She received fentanyl en route abdominal pain Pain Score (Numeric/FACES): 2 - Related Data Allergies Allergy/AdvReac Type Severity Reaction Status Date / Time amitriptyline Allergy Hallucinati Verified 02/04/18 08:28 ons celecoxib [From Celebrex] Allergy Agitation Verified 02/04/18 08:28 cyclobenzaprine Allergy Nervousness Verified 02/04/18 08:28 [From Flexeril] NSAIDS (Non-Steroidal Allergy Cannot Verified 02/04/18 08:28 Anti-Inflamma Remember thiamine (vitamin B1) Allergy Nausea and Verified 02/06/18 01:14 Vomiting ketoprofen AdvReac Diarrhea Verified 02/04/18 08:28 multi vit lr bag AdvReac Nausea and Uncoded 02/04/18 08:28 Vomiting Home Meds: Home Meds Escitalopram [Lexapro] 10 mg PO DAILY 10/30/17 [History] traZODone HCl [Trazodone HCl] 50 mg PO BEDTIME PRN 10/30/17 [History] Ondansetron [Zofran ODT] 4 mg PO Q4H PRN #30 tab.dis 11/05/17 [Rx] Hyoscyamine [Levsin] 0.125 mg SL Q4HR PRN 12/07/17 [History] Acetaminophen [Tylenol] 650 mg PO Q6H cup 12/24/17 [Rx] Calcium Citrate/Vitamin D3 [Calcium Citrate - Vit D Tablet] 1 tab PO BID [History] Cyanocobalamin (Vitamin B-12) [Vitamin B-12] 1,000 mcg SL DAILY 01/12/18 [ History] Ferrous Fumarate/Vitamin C [Vitron-C] 1 tab PO DAILY 01/12/18 [History] Magnesium Oxide [Magnesium] 400 mg PO BEDTIME 01/12/18 [History] Iron,Carbonyl/Ascorbic Acid [Vitron-C Tablet] 1 tab PO DAILY 02/03/18 [History] tiZANidine [Zanaflex] 4 mg PO TID 02/03/18 [History] Past Medical History HEENT History: Reports: Allergic Rhinitis, Impaired Vision Respiratory History: Reports: Bronchitis, Recurrent Gastrointestinal History: Reports: GERD Genitourinary History: Reports: None Musculoskeletal History: Reports: Back Pain, Chronic, Osteoarthritis Psychiatric History: Reports: Depression Endocrine/Metabolic History: Reports: Obesity/BMI 30+ Hematologic History: Reports: B12 Deficiency, Folic Acid - Infectious Disease History Infectious Disease History: Reports: Chicken Pox - Past Surgical History HEENT Surgical History: Reports: Other (See Below) Other HEENT Surgeries/Procedures: Tear duct opened up - left eye GI Surgical History: Reports: Bariatric Procedure, Cholecystectomy, EGD, Hernia , Abdominal, Other (See Below) Other GI Surgeries/Procedures: egd dil 12/07/17, 12/18/17, 01/12/18, 02/04/18 Musculoskeletal Surgical History: Reports: Arthroscopic Knee, Other (See Below) Other Musculoskeletal Surgeries/Procedures:: Bilateral knee Social & Family History - Family History Family Medical History: Noncontributory - Tobacco Use Smoking Status *Q: Never Smoker - Caffeine Use Caffeine Use: Reports: None - Recreational Drug Use Recreational Drug Use: No ED ROS GENERAL - Review of Systems Review Of Systems: ROS reveals no pertinent complaints other than HPI. ED EXAM, GI/ABD - Physical Exam Exam: See Below Exam Limited By: No Limitations General Appearance: Alert, Mild Distress Eyes: Bilateral: Normal Appearance Throat/Mouth: Normal Inspection Respiratory/Chest: Lungs Clear Cardiovascular: Regular Rate, Rhythm GI/Abdominal Exam: Other (Abdomen exam consisted of just gentle palpation) Neurological: Alert, Oriented Psychiatric: Normal Affect Skin Exam: Warm, Dry Course - Vital Signs Last Recorded V/S: Last Vital Signs Temp 36.6 C 02/06/18 01:13 Pulse 72 02/06/18 01:13 Resp 16 02/06/18 01:13 BP 119/75 02/06/18 01:13 Pulse Ox 97 02/06/18 01:13 - Orders/Labs/Meds Meds: Medications Discontinued Medications Generic Name Dose Route Start Last Admin Trade Name Tavo PRN Reason Stop Dose Admin Fentanyl 100 mcg 02/06/18 02:19 Sublimaze IVPUSH 02/06/18 02:20 ONETIME ONE - Re-Assessments/Exams Free Text/Narrative Re-Assessment/Exam: 02/06/18 02:25 This patient received fentanyl [address] Pagan was informed and he has given admission orders to the nurse Departure - Departure Time of Disposition: 02:25 Disposition: Admitted As Inpatient 68 Condition: Fair Clinical Impression: Pneumoperitoneum - Discharge Information Referrals: Spencer Pagan MD [Primary Care Provider] -
[2018-02-06] MEDS ORDERED: Naloxone 0.4 MG/ML SDV IVPUSH PRN (03:28)
[2018-02-06] MEDS ORDERED: Ondansetron 4 MG/2 ML SDV IVPUSH PRN (03:29)
[2018-02-06] MEDS ORDERED: HYDROmorphone/Normal Saline 15 MG/30 ML PCA IV SCH (03:30)
[2018-02-06] MEDS ORDERED: Dextrose 5%-Lactated Ringers 1,000 ML IV SCH (03:30)
[2018-02-06] MEDS ORDERED: Piperacillin/Tazobactam 3.375 GM in Sodium Chloride 0.9% 50 ML IV SCH (04:00)
[2018-02-06] MEDS ORDERED: SODIUM CHLORIDE 0.9% IV ONE (04:45)
[2018-02-06] MEDS ORDERED: POTASSIUM ACETATE IV ONE (04:45)
[2018-02-06] MEDS ORDERED: diphenhydrAMINE 50 MG/ML SDV IVPUSH PRN ×2 (05:04→11:34)
[2018-02-06] MEDS ORDERED: HYDROmorphone/Normal Saline 15 MG/30 ML PCA IV PRN (07:04)
[2018-02-06] MEDS ORDERED: Naloxone 0.4 MG/ML SDV IV PRN (07:05)
[2018-02-06] MEDS ORDERED: Meropenem 500 MG SDV ONE (07:20)
[2018-02-06] MEDS ORDERED: Bupivacaine 0.5%/EPINEPHrine 1:200,000 50 ML MDV ONE (07:20)
[2018-02-06] MEDS ORDERED: fentaNYL 250 MCG/5 ML SDV ONE ×2 (07:32→08:23)
[2018-02-06] MEDS ORDERED: Glycopyrrolate 0.2 MG/ML 5 ML MDV ONE (07:32)
[2018-02-06] MEDS ORDERED: Succinylcholine 200 MG/10 ML MDV ONE (07:32)
[2018-02-06] MEDS ORDERED: Rocuronium 50 MG/5 ML Vial ONE (07:32)
[2018-02-06] MEDS ORDERED: Dexamethasone 4 MG/ML SDV ONE (07:32)
[2018-02-06] MEDS ORDERED: Neostigmine Methylsulfate 1 MG/ML 5 ML Syringe ONE (07:32)
[2018-02-06] MEDS ORDERED: Propofol 200 MG/20 ML SDV ONE (07:32)
[2018-02-06] MEDS ORDERED: Ondansetron 4 MG/2 ML SDV ONE (07:32)
[2018-02-06] MEDS ORDERED: Ropivacaine 52 ML, Dexamethasone 8 MG, EPINEPHrine 0.4 MG, Sodium Chloride 0.9% 25.6 ML NERVRT SCH ×4 (08:00)
[2018-02-06] MEDS ORDERED: Ketamine 500 MG/5 ML MDV IV SCH (08:00)
[2018-02-06] MEDS ORDERED: traZODone 50 MG Tab PO PRN (10:08)
[2018-02-06] MEDS: Piperacillin/Tazobactam/Dext 3.375 GM in Premix Bag 1 BAG IV SCH ×3 (10:24→21:03)
[2018-02-06] MEDS: Multivitamins with Iron Tab.Chew PO SCH (11:14)
[2018-02-06] MEDS: Acetaminophen 325 MG Tab PO SCH ×2 (11:14→18:24)
[2018-02-06] MEDS: Pantoprazole 40 MG Vial IV SCH (11:15)
[2018-02-06] MEDS: Escitalopram 10 MG Tab PO SCH (11:15)
[2018-02-06] MEDS ORDERED: Morphine PF 150 MG/30 ML PCA Syringe IV PRN (11:45)
[2018-02-06] MEDS: Dextrose 5%-Lactated Ringers 1,000 ML IV SCH ×2 (12:43→19:18)
[2018-02-06] MEDS: tiZANidine 4 MG Tab PO SCH ×2 (14:44→21:01)
[2018-02-07] MEDS: Acetaminophen 325 MG Tab PO SCH ×5 (00:11→22:59)
[2018-02-07] MEDS ORDERED: Lactated Ringers 500 ML IV SCH (01:00)
[2018-02-07] MEDS: Dextrose 5%-Lactated Ringers 1,000 ML IV SCH ×2 (02:19→20:17)
[2018-02-07] MEDS: Piperacillin/Tazobactam/Dext 3.375 GM in Premix Bag 1 BAG IV SCH ×4 (05:26→21:05)
[2018-02-07] MEDS ORDERED: Scopolamine 1.5 MG Transdermal Patch TRDERM STA (06:43)
[2018-02-07] MEDS ORDERED: Propofol 200 MG/20 ML SDV ONE ×2 (07:16→07:17)
[2018-02-07] MEDS ORDERED: fentaNYL 100 MCG/2 ML SDV ONE (07:16)
[2018-02-07] MEDS ORDERED: Midazolam 1 MG/ML 2 ML SDV ONE (07:16)
[2018-02-07] MEDS: Glycopyrrolate 0.2 MG/ML 2 ML SDV IVPUSH ONE ×2 (07:25→11:44)
[2018-02-07] MEDS ORDERED: Dexamethasone 4 MG/ML SDV ONE (07:41)
[2018-02-07] MEDS ORDERED: Ondansetron 4 MG/2 ML SDV ONE (07:41)
[2018-02-07] MEDS ORDERED: Lactated Ringers 1,000 ML ONE (07:53)
[2018-02-07] MEDS ORDERED: Naloxone 0.4 MG/ML SDV ONE (07:58)
[2018-02-07] MEDS ORDERED: Metoclopramide 10 MG/2 ML SDV ONE (08:17)
[2018-02-07] MEDS: Metoclopramide 10 MG/2 ML SDV IVPUSH SCH ×3 (08:25→20:17)
[2018-02-07] MEDS ORDERED: Metoclopramide 10 MG/2 ML SDV IVPUSH SCH (09:00)
[2018-02-07] MEDS: tiZANidine 4 MG Tab PO SCH ×3 (10:11→21:02)
[2018-02-07] MEDS: Multivitamins with Iron Tab.Chew PO SCH (10:11)
[2018-02-07] MEDS: SCOPOLAMINE PATCH CHECK TOP SCH (10:11)
[2018-02-07] MEDS: Escitalopram 10 MG Tab PO SCH (10:11)
[2018-02-07] MEDS: Magnesium Sulfate/Water 2 GM in Premix Bag 1 BAG IV SCH ×3 (10:17→22:54)
[2018-02-07] MEDS: Clindamycin Phosphate 900 MG in Sodium Chloride 0.9% 100 ML IV SCH ×2 (10:42→18:12)
[2018-02-07] MEDS: Pantoprazole 40 MG Vial IV SCH (11:40)
[2018-02-07] MEDS: Potassium Phosphates 20 MMOLE in Sodium Chloride 0.9% 250 ML IV SCH ×3 (11:44→18:12)
[2018-02-07] MEDS: Ondansetron 4 MG/2 ML SDV IVPUSH SCH ×3 (11:46→20:17)
[2018-02-07] MEDS ORDERED: Morphine PF 150 MG/30 ML PCA Syringe IV PRN (14:50)
[2018-02-07] MEDS: LORazepam 2 MG/ML SDV IVPUSH PRN (22:52)
[2018-02-08] MEDS: Clindamycin Phosphate 900 MG in Sodium Chloride 0.9% 100 ML IV SCH ×3 (01:51→18:31)
[2018-02-08] MEDS: Metoclopramide 10 MG/2 ML SDV IVPUSH SCH ×4 (01:51→20:13)
[2018-02-08] MEDS: Ondansetron 4 MG/2 ML SDV IVPUSH SCH ×6 (01:51→20:06)
[2018-02-08] MEDS: Piperacillin/Tazobactam/Dext 3.375 GM in Premix Bag 1 BAG IV SCH ×4 (03:40→22:35)
[2018-02-08] MEDS: Dextrose 5%-Lactated Ringers 1,000 ML IV SCH ×3 (04:09→22:30)
[2018-02-08] MEDS: Magnesium Sulfate/Water 2 GM in Premix Bag 1 BAG IV SCH ×3 (04:09→16:14)
[2018-02-08] MEDS: Acetaminophen 325 MG Tab PO SCH ×4 (05:24→22:47)
[2018-02-08] MEDS: Multivitamins with Iron Tab.Chew PO SCH (08:20)
[2018-02-08] MEDS: SCOPOLAMINE PATCH CHECK TOP SCH (08:21)
[2018-02-08] MEDS: Escitalopram 10 MG Tab PO SCH (08:21)
[2018-02-08] MEDS: tiZANidine 4 MG Tab PO SCH ×3 (08:22→21:00)
--- NOTE | 2018-02-08 08:47 | PN ---
DATE OF SERVICE: 02/08/2018 SUBJECTIVE: Montse reports that she did have the hiccups. She does well until she gets up and then gets nauseated. She is postop day #1. Vital signs have been stable. REVIEW OF SYSTEMS: Remainder of review of systems negative for any pertinent positives and negatives. OBJECTIVE: GENERAL: Montse Salazar is a 37-year-old female. VITAL SIGNS: TPR is 96.8, 68, 16, and blood pressure 120/79. HEENT: Negative. NECK: Supple. HEART: Regular rate and rhythm. LUNGS: Clear. ABDOMEN: Dressings dry and intact. SAMIR drain put out 145 mL of a pink serosanguineous drainage. EXTREMITIES: SCDs are on, and there is no peripheral edema. ASSESSMENT: Diagnostic laparoscopy with closure of perforation of the gastrojejunostomy and drainage of perigastric fluid collection for perforated gastrojejunostomy with perigastric inflammatory fluid collection. Date of surgery, 02/06/2018. PLAN: 1. Decrease IV to 100 mL/hour. 2. KCl 40 mEq IV one time today. 3. Good pulmonary toilet. 4. We will evaluate p.r.n. or in a.m. Mandy Bob PA-C /[id number]
--- NOTE | 2018-02-08 09:33 | CR ---
Abdomen 1V Upright CLINICAL HISTORY: Postop stent FINDINGS: Study is very limited due to patient's large body habitus and portable technique. The patie nt is status post op. The there is free intraperitoneal air. A surgical drain in the left upper quadr ant. There is a curvilinear density in the mid abdomen. This may be the described a stent. The patien t has had previous bariatric surgery IMPRESSION: Very limited postoperative abdominal study Surgical drain within the left upper quadrant with residual free intraperitoneal air Curvilinear radiopacity in the epigastric region may represent a stent Previous bariatric surgery
[2018-02-08] MEDS: Potassium Chloride 20 MEQ, Lidocaine 1% 2 ML in Sodium Chloride 0.9% 100 ML IV SCH ×2 (10:13→12:24)
--- NOTE | 2018-02-08 10:32 | OR ---
DATE OF PROCEDURE: 02/07/2018 PREOPERATIVE DIAGNOSIS: Recurrent perforation of gastrojejunostomy. POSTOPERATIVE DIAGNOSIS: Recurrent perforation of gastrojejunostomy. OPERATIVE PROCEDURE: Placement of covered endoscopic stent centered over gastrojejunostomy ([id number]). ANESTHESIA: IV sedation. INDICATION FOR PROCEDURE: Please see progress note dated earlier today. DETAILS OF PROCEDURE: The patient was taken to the operating room and placed in a left lateral decubitus position. IV sedation was administered, after which the upper GI endoscope was passed orally through the length of the esophagus and through the area of the gastrojejunostomy. At this point, this was well open status post the dilation performed on 02/04/2018. A guidewire was then passed into the Tha limb and a clamp placed over the chest and abdominal wall to elida the center of the gastrojejunostomy fluoroscopically and the scope then withdrawn. An EndoMAXX covered stent was then placed without difficulty and well centered over the area of the stricture. This appeared to deploy without complications. This was an EndoMAXX covered stent with total length of 120 mm, the ends were 0.4 mm in diameter and the center 19 mm in diameter. After deployment, the guidewire was removed and the scope then used to assess the area that would be a good placement of this with a good occlusion of the esophagus proximally and nice opening into the jejunum Tha limb distally. There were no evident complications. The scope was withdrawn. The patient was taken to the recovery room in satisfactory condition. Subsequent plain x-ray confirmed adequate location of the stent once again. Spencer Pagan MD /[id number]
--- NOTE | 2018-02-08 11:02 | PN ---
DATE OF SERVICE: 02/07/2018 The patient has been clinically stable overnight, complaining of some shoulder pain and swelling as one would expect with inflammation at the site of the gastrojejunostomy. She has been afebrile and continued to have a normal white count. The labs did show a marginally low potassium, low phosphate and magnesium, these will be supplemented today. Plan will be to proceed again with the endoscopic stent placement, this will be covered stent centered overlying the gastrojejunostomy with a goal of keeping that open for a period of time without need for additional evaluation as the patient at this point demonstrated extreme propensity for perforation with relatively minimal dilation of her gastrojejunostomy. Potential risks of the procedure were reviewed including bleeding, infection, and migration of the stent requiring potential laparotomy for correction were all reviewed, and the patient wishes to proceed. She was advised that there is quite a bit in the way of problems with nausea in at least some of the cases where stents were placed, and we will maximize her anti-nausea regimen with intraoperative Decadron, a scopolamine patch will be placed preoperatively and we will give her a stat dose of Zofran, postoperatively schedule Reglan and Ativan p.r.n. to maximize the anti-nausea regimen. Spencer Pagan MD /[id number]
[2018-02-08] MEDS: Pantoprazole 40 MG Vial IV SCH (12:17)
[2018-02-08] MEDS: LORazepam 2 MG/ML SDV IVPUSH PRN (12:43)
[2018-02-09] MEDS: Magnesium Sulfate/Water 2 GM in Premix Bag 1 BAG IV SCH ×5 (01:06→22:13)
[2018-02-09] MEDS: Ondansetron 4 MG/2 ML SDV IVPUSH SCH ×7 (01:09→23:42)
[2018-02-09] MEDS: Metoclopramide 10 MG/2 ML SDV IVPUSH SCH ×4 (02:24→20:25)
[2018-02-09] MEDS: Clindamycin Phosphate 900 MG in Sodium Chloride 0.9% 100 ML IV SCH ×3 (02:27→19:19)
[2018-02-09] MEDS: Piperacillin/Tazobactam/Dext 3.375 GM in Premix Bag 1 BAG IV SCH ×4 (04:23→22:13)
[2018-02-09] MEDS: Acetaminophen 325 MG Tab PO SCH ×5 (04:27→22:21)
--- NOTE | 2018-02-09 07:09 | PCM.PN ---
- General Info Date of Service: 02/09/18 Subjective Update: Patients pain is controlled. Nausea has improved since yesterday. Intake was 600cc yesterday and would like to see this increased to 1500cc prior to discharge. Reevaluate for discharge in the am. Functional Status: Reports: Pain Controlled, Tolerating Diet - Review of Systems General: Reports: No Symptoms HEENT: Reports: No Symptoms Pulmonary: Reports: No Symptoms Cardiovascular: Reports: No Symptoms Gastrointestinal: Reports: No Symptoms Genitourinary: Reports: No Symptoms Musculoskeletal: Reports: No Symptoms Skin: Reports: No Symptoms Neurological: Reports: No Symptoms Psychiatric: Reports: No Symptoms Systems Review Comment:: Pertinent review of systems negative. - Patient Data Vitals - Most Recent: Last Vital Signs Temp 98.2 F 02/09/18 02:31 Pulse 95 02/09/18 02:31 Resp 16 02/09/18 02:31 BP 111/61 02/09/18 02:31 Pulse Ox 96 02/09/18 02:31 Weight - Most Recent: 225 lb 5.986 oz I&O - Last 24 Hours: Intake & Output 02/08/18 02/09/18 02/09/18 22:59 06:59 14:59 Intake Total 2055 1190 Output Total 870 625 Balance 1185 565 Ajith Results Last 24 Hours: Microbiology 02/06/18 09:33 Gram Stain - Final Abdominal Fluid - Drainage Wound Culture - Final NO GROWTH AFTER 3 DAYS Anaerobic Culture - Final NO GROWTH AFTER 3 DAYS Med Orders - Current: Current Medications Acetaminophen (Tylenol) 650 mg PO Q6H [facility] Last Admin: 02/09/18 05:31 Dose: 650 mg Diphenhydramine HCl (Benadryl) 25 - 50 mg IVPUSH Q4H PRN PRN Reason: Itching Last Admin: 02/06/18 12:07 Dose: 25 mg Escitalopram Oxalate (Lexapro) 10 mg PO DAILY [facility] Last Admin: 02/08/18 08:21 Dose: Not Given Piperacillin/Tazobactam/ (Dextrose 3.375 gm/ Premix) 50 mls @ 100 mls/hr IV Q6H [facility] Last Admin: 02/09/18 04:23 Dose: 100 mls/hr Clindamycin Phosphate 900 mg/ (Sodium Chloride) 106 mls @ 212 mls/hr IV Q8H [facility] Last Admin: 02/09/18 02:27 Dose: 212 mls/hr Magnesium Sulfate 2 gm/ Premix 50 mls @ 25 mls/hr IV Q6H [facility] Stop: 02/10/18 06:59 Last Admin: 02/09/18 04:26 Dose: 25 mls/hr Dextrose/Lactated Ringer's (Dextrose 5%-Lactated Ringers) 1,000 mls @ 100 mls/ hr IV ASDIRECTED [facility] Last Admin: 02/08/18 22:30 Dose: 100 mls/hr Lorazepam (Ativan) 0.5 - 1 mg IVPUSH ASDIRECTED PRN PRN Reason: ANXIETY OR NAUSEA Last Admin: 02/08/18 12:43 Dose: 0.5 mg Metoclopramide HCl (Reglan) 10 mg IVPUSH Q6H [facility] Last Admin: 02/09/18 02:24 Dose: 10 mg Morphine Sulfate (Morphine Slitter Scorer Cut Off Operator 150 Mg In 30 Ml) 0 mg IV ASDIRECTED PRN; Protocol PRN Reason: Pain Multivitamins/Iron (Child Chew Iron) 3 tab PO DAILY [facility] Last Admin: 02/08/18 08:20 Dose: 3 tab Naloxone HCl (Narcan) 0.1 mg IV ASDIRECTED PRN PRN Reason: decreased respiratory rate Scopolamine Patch (Check) 1 each TOP DAILY [facility] Last Admin: 02/08/18 08:21 Dose: Not Given Ondansetron HCl (Zofran) 4 mg IVPUSH Q4H [facility] Last Admin: 02/09/18 04:18 Dose: 4 mg Pantoprazole Sodium (Protonix Iv) 40 mg IV Q24H [facility] Last Admin: 02/08/18 12:17 Dose: 40 mg Scopolamine (Transderm-Scop) 1.5 mg TOP Q72H [facility] Tizanidine HCl (Zanaflex) 4 mg PO TID [facility] Last Admin: 02/08/18 21:00 Dose: Not Given Trazodone HCl (Trazodone) 50 mg PO BEDTIME PRN PRN Reason: * Discontinued Medications Acetaminophen (Tylenol) 650 mg PO Q6H [facility] Last Admin: 02/08/18 22:47 Dose: 650 mg Bupivacaine HCl/Epinephrine Bitart (Marcaine 0.5%/Epinephrine 1:200,000) Confirm Administered Dose 50 ml .ROUTE .STK-MED ONE Stop: 02/06/18 07:21 Ropivacaine 52 ml/Dexamethasone 8 mg/Epinephrine HCl 0.4 mg/ Sodium Chloride 25.6 ml 0 ml NERVRT ASDIRECTED [facility] Last Admin: 02/06/18 08:30 Dose: 80 syringe Dexamethasone (Dexamethasone) Confirm Administered Dose 4 mg .ROUTE .STK-MED ONE Stop: 02/06/18 07:33 Dexamethasone (Dexamethasone) Confirm Administered Dose 4 mg .ROUTE .STK-MED ONE Stop: 02/07/18 07:42 Diphenhydramine HCl (Benadryl) 25 - 50 mg IVPUSH Q4H PRN PRN Reason: Itching Last Admin: 02/06/18 05:22 Dose: 50 mg Fentanyl (Sublimaze) 100 mcg IVPUSH ONETIME ONE Stop: 02/06/18 02:20 Last Admin: 02/06/18 02:33 Dose: 100 mcg Fentanyl (Sublimaze) Confirm Administered Dose 250 mcg .ROUTE .STK-MED ONE Stop: 02/06/18 07:33 Fentanyl (Sublimaze) Confirm Administered Dose 250 mcg .ROUTE .STK-MED ONE Stop: 02/06/18 08:24 Fentanyl (Sublimaze) Confirm Administered Dose 200 mcg .ROUTE .STK-MED ONE Stop: 02/07/18 07:17 Glycopyrrolate (Robinul) Confirm Administered Dose 1 mg .ROUTE .STK-MED ONE Stop: 02/06/18 07:33 Glycopyrrolate (Glycopyrrolate) 0.4 mg IVPUSH ONETIME ONE Stop: 02/07/18 07:46 Last Admin: 02/07/18 11:44 Dose: Not Given Hydromorphone HCl (Dilaudid Slitter Scorer Cut Off Operator 15 Mg In Ns 30 Ml) 15 mg IV ASDIRECTED [facility]; Protocol Last Admin: 02/06/18 03:54 Dose: 15 mg Hydromorphone HCl (Dilaudid Slitter Scorer Cut Off Operator 15 Mg In Ns 30 Ml) 0 mg IV ASDIRECTED PRN; Protocol PRN Reason: Pain Dextrose/Lactated Ringer's (Dextrose 5%-Lactated Ringers) 1,000 mls @ 125 mls/ hr IV ASDIRECTED [facility] Last Admin: 02/06/18 03:58 Dose: 125 mls/hr Piperacillin Sod/Tazobactam (Sod 3.375 gm/ Sodium Chloride) 50 mls @ 100 mls/ hr IV Q6H [facility] Last Admin: 02/06/18 03:59 Dose: 100 mls/hr Potassium Acetate 20 meq/ (Sodium Chloride) 110 mls @ 50 mls/hr IV ONETIME ONE Stop: 02/06/18 08:11 Last Admin: 02/06/18 05:56 Dose: 50 mls/hr Potassium Acetate 20 meq/ (Sodium Chloride) 110 mls @ 50 mls/hr IV ONETIME ONE Stop: 02/06/18 10:11 Last Admin: 02/06/18 10:07 Dose: 50 mls/hr Potassium Acetate 20 meq/ (Sodium Chloride) 110 mls @ 50 mls/hr IV ONETIME ONE Stop: 02/06/18 12:11 Last Admin: 02/06/18 12:41 Dose: 50 mls/hr Dextrose/Lactated Ringer's (Dextrose 5%-Lactated Ringers) 1,000 mls @ 150 mls/ hr IV ASDIRECTED [facility] Last Admin: 02/08/18 04:09 Dose: 150 mls/hr Lactated Ringer's (Ringers, Lactated) 500 mls @ 500 mls/hr IV .BOLUS [facility] Last Admin: 02/07/18 00:56 Dose: 500 mls/hr Lactated Ringer's (Ringers, Lactated) Confirm Administered Dose 1,000 mls @ as directed .ROUTE .STK-MED ONE Stop: 02/07/18 07:54 Potassium Phosphate 20 mmole/ (Sodium Chloride) 256.6667 mls @ 86 mls/hr IV Q3H [facility] Stop: 02/07/18 19:59 Last Admin: 02/07/18 18:12 Dose: 86 mls/hr Potassium Chloride 20 meq/Lidocaine HCl 2 ml/ Sodium Chloride 112 mls @ 56 mls/ hr IV Q2H [facility] Stop: 02/08/18 12:59 Last Admin: 02/08/18 12:24 Dose: 56 mls/hr Ketamine HCl (Ketalar) 31 mg IV ASDIRECTED [facility] Meropenem (Merrem) Confirm Administered Dose 500 mg .ROUTE .STK-MED ONE Stop: 02/06/18 07:21 Last Admin: 02/06/18 09:41 Dose: 500 mg Midazolam HCl (Versed 1 Mg/Ml) Confirm Administered Dose 2 mg .ROUTE .STK-MED ONE Stop: 02/07/18 07:17 Morphine Sulfate (Morphine Slitter Scorer Cut Off Operator 150 Mg In 30 Ml) 0 mg IV ASDIRECTED PRN; Protocol PRN Reason: Pain Last Admin: 02/06/18 12:18 Dose: 150 mg Naloxone HCl (Narcan) Confirm Administered Dose 0.4 mg .ROUTE .STK-MED ONE Stop: 02/07/18 07:59 Neostigmine Methylsulfate (Neostigmine) Confirm Administered Dose 5 mg .ROUTE .STK-MED ONE Stop: 02/06/18 07:33 Ondansetron HCl (Zofran) 4 mg IVPUSH Q4H PRN PRN Reason: Nausea/Vomiting Ondansetron HCl (Zofran) Confirm Administered Dose 4 mg .ROUTE .STK-MED ONE Stop: 02/06/18 07:33 Ondansetron HCl (Zofran) Confirm Administered Dose 4 mg .ROUTE .STK-MED ONE Stop: 02/07/18 07:42 Propofol (Diprivan 20 Ml) Confirm Administered Dose 200 mg .ROUTE .STK-MED ONE Stop: 02/06/18 07:33 Propofol (Diprivan 20 Ml) Confirm Administered Dose 200 mg .ROUTE .STK-MED ONE Stop: 02/07/18 07:17 Propofol (Diprivan 20 Ml) Confirm Administered Dose 200 mg .ROUTE .STK-MED ONE Stop: 02/07/18 07:18 Rocuronium [place] (Zemuron) Confirm Administered Dose 50 mg .ROUTE .STK-MED ONE Stop: 02/06/18 07:33 Scopolamine (Transderm-Scop) 1.5 mg TRDERM Q72H [facility] Stop: 02/07/18 06:44 Last Admin: 02/07/18 07:07 Dose: 1.5 mg Succinylcholine Chloride (Quelicin) Confirm Administered Dose 200 mg .ROUTE .STK -MED ONE Stop: 02/06/18 07:33 - Exam General: Alert, Oriented HEENT: Pupils Equal, Mucous Membr. Moist/[place] Neck: Supple Lungs: Normal Respiratory Effort Cardiovascular: Regular Rate, Regular Rhythm Back Exam: Full Range of Motion Extremities: Normal Range of Motion Skin: Warm, Dry, Intact Neurological: No New Focal Deficit Psy/Mental Status: Alert, Normal Affect, Normal Mood - Problem List Review Problem List Initiated/Reviewed/Updated: Yes - Assessment Assessment:: POD #3 from closure of perforation of gastrojujunostomy. Date of surgery 2017. - Plan Plan:: 1. Keep on clear liquid diet. Encourage intact to 1500cc 2. Reevaluate in am for discharge
[2018-02-09] MEDS: Multivitamins with Iron Tab.Chew PO SCH (08:40)
[2018-02-09] MEDS: tiZANidine 4 MG Tab PO SCH ×4 (08:40→20:26)
[2018-02-09] MEDS: Escitalopram 10 MG Tab PO SCH ×2 (08:40→08:43)
[2018-02-09] MEDS: SCOPOLAMINE PATCH CHECK TOP SCH (08:41)
[2018-02-09] MEDS: Pantoprazole 40 MG Vial IV SCH (11:35)
[2018-02-09] MEDS: Dextrose 5%-Lactated Ringers 1,000 ML IV SCH ×2 (12:13→23:36)
[2018-02-09] MEDS ORDERED: Docusate Sodium 100 MG Cap PO PRN ×2 (15:27→17:44)
[2018-02-09] MEDS ORDERED: Magnesium Citrate Solution 296 ML Bottle PO ONE (17:45)
[2018-02-09] MEDS ORDERED: Hyoscyamine 0.125 MG Tab.SL SL PRN (17:46)
[2018-02-10] MEDS: Clindamycin Phosphate 900 MG in Sodium Chloride 0.9% 100 ML IV SCH ×3 (02:06→18:37)
[2018-02-10] MEDS: Metoclopramide 10 MG/2 ML SDV IVPUSH SCH ×4 (02:07→19:59)
[2018-02-10] MEDS: Piperacillin/Tazobactam/Dext 3.375 GM in Premix Bag 1 BAG IV SCH ×4 (03:48→22:07)
[2018-02-10] MEDS: Ondansetron 4 MG/2 ML SDV IVPUSH SCH ×6 (03:49→23:11)
[2018-02-10] MEDS: Acetaminophen 325 MG Tab PO SCH ×4 (04:00→22:13)
[2018-02-10] MEDS: Magnesium Sulfate/Water 2 GM in Premix Bag 1 BAG IV SCH (05:13)
--- NOTE | 2018-02-10 07:52 | PCM.PN ---
- General Info Date of Service: 02/10/18 Admission Dx/Problem (Free Text): Recurrent perforation of gastrojujunostomy Subjective Update: Patient was up and down throughout the night. She had taken a Collace last night to help with stool movement and had pain as if it were stuck. Her intake increased slightly from yesterday, although still want to encourage fluids and get intake to 1500cc. Functional Status: Reports: Pain Controlled, Ambulating, Urinating - Review of Systems General: Reports: No Symptoms HEENT: Reports: No Symptoms Pulmonary: Reports: No Symptoms Cardiovascular: Reports: No Symptoms Gastrointestinal: Reports: No Symptoms Genitourinary: Reports: No Symptoms Musculoskeletal: Reports: No Symptoms Skin: Reports: No Symptoms Neurological: Reports: No Symptoms Psychiatric: Reports: No Symptoms Systems Review Comment:: Remainder of ROS is negative for any pertinent positives or negatives. - Patient Data Vitals - Most Recent: Last Vital Signs Temp 98.8 F 02/10/18 04:03 Pulse 98 02/10/18 04:03 Resp 18 02/10/18 04:03 BP 112/71 02/10/18 04:03 Pulse Ox 92 L 02/10/18 07:40 Weight - Most Recent: 225 lb 5.986 oz I&O - Last 24 Hours: Intake & Output 02/09/18 02/10/18 02/10/18 22:59 06:59 14:59 Intake Total 1822 1256 Output Total 520 1188 Balance 1302 68 Ajith Results Last 24 Hours: Microbiology 02/06/18 09:33 Gram Stain - Final Abdominal Fluid - Drainage Wound Culture - Final NO GROWTH AFTER 3 DAYS Anaerobic Culture - Final NO GROWTH AFTER 3 DAYS Med Orders - Current: Current Medications Acetaminophen (Tylenol) 650 mg PO Q6H [facility] Last Admin: 02/10/18 04:00 Dose: 650 mg Diphenhydramine HCl (Benadryl) 25 - 50 mg IVPUSH Q4H PRN PRN Reason: Itching Last Admin: 02/06/18 12:07 Dose: 25 mg Docusate Sodium (Colace) 100 mg PO BID PRN PRN Reason: Constipation Escitalopram Oxalate (Lexapro) 10 mg PO DAILY [facility] Last Admin: 02/09/18 08:43 Dose: Not Given Hyoscyamine (Hyomax-Sl) 0.125 mg SL Q4H PRN PRN Reason: esophageal muscle spasms Last Admin: 02/09/18 18:05 Dose: 0.125 mg Piperacillin/Tazobactam/ (Dextrose 3.375 gm/ Premix) 50 mls @ 100 mls/hr IV Q6H [facility] Last Admin: 02/10/18 03:48 Dose: 100 mls/hr Clindamycin Phosphate 900 mg/ (Sodium Chloride) 106 mls @ 212 mls/hr IV Q8H [facility] Last Admin: 02/10/18 02:06 Dose: 212 mls/hr Dextrose/Lactated Ringer's (Dextrose 5%-Lactated Ringers) 1,000 mls @ 100 mls/ hr IV ASDIRECTED [facility] Last Admin: 02/09/18 23:36 Dose: 100 mls/hr Lorazepam (Ativan) 0.5 - 1 mg IVPUSH ASDIRECTED PRN PRN Reason: ANXIETY OR NAUSEA Last Admin: 02/08/18 12:43 Dose: 0.5 mg Metoclopramide HCl (Reglan) 10 mg IVPUSH Q6H [facility] Last Admin: 02/10/18 07:44 Dose: 10 mg Morphine Sulfate (Morphine Irrigation District Manager 150 Mg In 30 Ml) 0 mg IV ASDIRECTED PRN; Protocol PRN Reason: Pain Multivitamins/Iron (Child Chew Iron) 3 tab PO DAILY [facility] Last Admin: 02/09/18 08:40 Dose: 3 tab Naloxone HCl (Narcan) 0.1 mg IV ASDIRECTED PRN PRN Reason: decreased respiratory rate Scopolamine Patch (Check) 1 each TOP DAILY [facility] Last Admin: 02/09/18 08:41 Dose: Not Given Ondansetron HCl (Zofran) 4 mg IVPUSH Q4H [facility] Last Admin: 02/10/18 07:44 Dose: 4 mg Pantoprazole Sodium (Protonix Iv) 40 mg IV Q24H [facility] Last Admin: 02/09/18 11:35 Dose: 40 mg Scopolamine (Transderm-Scop) 1.5 mg TOP Q72H [facility] Tizanidine HCl (Zanaflex) 4 mg PO TID [facility] Last Admin: 02/09/18 20:26 Dose: Not Given Trazodone HCl (Trazodone) 50 mg PO BEDTIME PRN PRN Reason: * Discontinued Medications Acetaminophen (Tylenol) 650 mg PO Q6H [facility] Last Admin: 02/08/18 22:47 Dose: 650 mg Bupivacaine HCl/Epinephrine Bitart (Marcaine 0.5%/Epinephrine 1:200,000) Confirm Administered Dose 50 ml .ROUTE .STK-MED ONE Stop: 02/06/18 07:21 Ropivacaine 52 ml/Dexamethasone 8 mg/Epinephrine HCl 0.4 mg/ Sodium Chloride 25.6 ml 0 ml NERVRT ASDIRECTED [facility] Last Admin: 02/06/18 08:30 Dose: 80 syringe Dexamethasone (Dexamethasone) Confirm Administered Dose 4 mg .ROUTE .STK-MED ONE Stop: 02/06/18 07:33 Dexamethasone (Dexamethasone) Confirm Administered Dose 4 mg .ROUTE .STK-MED ONE Stop: 02/07/18 07:42 Diphenhydramine HCl (Benadryl) 25 - 50 mg IVPUSH Q4H PRN PRN Reason: Itching Last Admin: 02/06/18 05:22 Dose: 50 mg Docusate Sodium (Colace) 100 mg PO ASDIRECTED PRN PRN Reason: Constipation Last Admin: 02/09/18 15:39 Dose: 100 mg Fentanyl (Sublimaze) 100 mcg IVPUSH ONETIME ONE Stop: 02/06/18 02:20 Last Admin: 02/06/18 02:33 Dose: 100 mcg Fentanyl (Sublimaze) Confirm Administered Dose 250 mcg .ROUTE .STK-MED ONE Stop: 02/06/18 07:33 Fentanyl (Sublimaze) Confirm Administered Dose 250 mcg .ROUTE .STK-MED ONE Stop: 02/06/18 08:24 Fentanyl (Sublimaze) Confirm Administered Dose 200 mcg .ROUTE .STK-MED ONE Stop: 02/07/18 07:17 Glycopyrrolate (Robinul) Confirm Administered Dose 1 mg .ROUTE .STK-MED ONE Stop: 02/06/18 07:33 Glycopyrrolate (Glycopyrrolate) 0.4 mg IVPUSH ONETIME ONE Stop: 02/07/18 07:46 Last Admin: 02/07/18 11:44 Dose: Not Given Hydromorphone HCl (Dilaudid Irrigation District Manager 15 Mg In Ns 30 Ml) 15 mg IV ASDIRECTED [facility]; Protocol Last Admin: 02/06/18 03:54 Dose: 15 mg Hydromorphone HCl (Dilaudid Irrigation District Manager 15 Mg In Ns 30 Ml) 0 mg IV ASDIRECTED PRN; Protocol PRN Reason: Pain Dextrose/Lactated Ringer's (Dextrose 5%-Lactated Ringers) 1,000 mls @ 125 mls/ hr IV ASDIRECTED [facility] Last Admin: 02/06/18 03:58 Dose: 125 mls/hr Piperacillin Sod/Tazobactam (Sod 3.375 gm/ Sodium Chloride) 50 mls @ 100 mls/ hr IV Q6H [facility] Last Admin: 02/06/18 03:59 Dose: 100 mls/hr Potassium Acetate 20 meq/ (Sodium Chloride) 110 mls @ 50 mls/hr IV ONETIME ONE Stop: 02/06/18 08:11 Last Admin: 02/06/18 05:56 Dose: 50 mls/hr Potassium Acetate 20 meq/ (Sodium Chloride) 110 mls @ 50 mls/hr IV ONETIME ONE Stop: 02/06/18 10:11 Last Admin: 02/06/18 10:07 Dose: 50 mls/hr Potassium Acetate 20 meq/ (Sodium Chloride) 110 mls @ 50 mls/hr IV ONETIME ONE Stop: 02/06/18 12:11 Last Admin: 02/06/18 12:41 Dose: 50 mls/hr Dextrose/Lactated Ringer's (Dextrose 5%-Lactated Ringers) 1,000 mls @ 150 mls/ hr IV ASDIRECTED [facility] Last Admin: 02/08/18 04:09 Dose: 150 mls/hr Lactated Ringer's (Ringers, Lactated) 500 mls @ 500 mls/hr IV .BOLUS [facility] Last Admin: 02/07/18 00:56 Dose: 500 mls/hr Lactated Ringer's (Ringers, Lactated) Confirm Administered Dose 1,000 mls @ as directed .ROUTE .STK-MED ONE Stop: 02/07/18 07:54 Magnesium Sulfate 2 gm/ Premix 50 mls @ 25 mls/hr IV Q6H [facility] Stop: 02/10/18 06:59 Last Admin: 02/10/18 05:13 Dose: 25 mls/hr Potassium Phosphate 20 mmole/ (Sodium Chloride) 256.6667 mls @ 86 mls/hr IV Q3H [facility] Stop: 02/07/18 19:59 Last Admin: 02/07/18 18:12 Dose: 86 mls/hr Potassium Chloride 20 meq/Lidocaine HCl 2 ml/ Sodium Chloride 112 mls @ 56 mls/ hr IV Q2H [facility] Stop: 02/08/18 12:59 Last Admin: 02/08/18 12:24 Dose: 56 mls/hr Ketamine HCl (Ketalar) 31 mg IV ASDIRECTED [facility] Magnesium Citrate (Citrate Of Magnesia) 296 ml PO ONETIME ONE Stop: 02/09/18 17:46 Last Admin: 02/09/18 20:25 Dose: Not Given Meropenem (Merrem) Confirm Administered Dose 500 mg .ROUTE .STK-MED ONE Stop: 02/06/18 07:21 Last Admin: 02/06/18 09:41 Dose: 500 mg Midazolam HCl (Versed 1 Mg/Ml) Confirm Administered Dose 2 mg .ROUTE .STK-MED ONE Stop: 02/07/18 07:17 Morphine Sulfate (Morphine Irrigation District Manager 150 Mg In 30 Ml) 0 mg IV ASDIRECTED PRN; Protocol PRN Reason: Pain Last Admin: 02/06/18 12:18 Dose: 150 mg Naloxone HCl (Narcan) Confirm Administered Dose 0.4 mg .ROUTE .STK-MED ONE Stop: 02/07/18 07:59 Neostigmine Methylsulfate (Neostigmine) Confirm Administered Dose 5 mg .ROUTE .STK-MED ONE Stop: 02/06/18 07:33 Ondansetron HCl (Zofran) 4 mg IVPUSH Q4H PRN PRN Reason: Nausea/Vomiting Ondansetron HCl (Zofran) Confirm Administered Dose 4 mg .ROUTE .STK-MED ONE Stop: 02/06/18 07:33 Ondansetron HCl (Zofran) Confirm Administered Dose 4 mg .ROUTE .STK-MED ONE Stop: 02/07/18 07:42 Propofol (Diprivan 20 Ml) Confirm Administered Dose 200 mg .ROUTE .STK-MED ONE Stop: 02/06/18 07:33 Propofol (Diprivan 20 Ml) Confirm Administered Dose 200 mg .ROUTE .STK-MED ONE Stop: 02/07/18 07:17 Propofol (Diprivan 20 Ml) Confirm Administered Dose 200 mg .ROUTE .STK-MED ONE Stop: 02/07/18 07:18 Rocuronium [place] (Zemuron) Confirm Administered Dose 50 mg .ROUTE .STK-MED ONE Stop: 02/06/18 07:33 Scopolamine (Transderm-Scop) 1.5 mg TRDERM Q72H [facility] Stop: 02/07/18 06:44 Last Admin: 02/07/18 07:07 Dose: 1.5 mg Succinylcholine Chloride (Quelicin) Confirm Administered Dose 200 mg .ROUTE .STK -MED ONE Stop: 02/06/18 07:33 - Exam General: Alert, Oriented HEENT: Pupils Equal, Mucous Membr. Moist/[place] Lungs: Clear to Auscultation, Normal Respiratory Effort Cardiovascular: Regular Rate, Regular Rhythm Extremities: Normal Range of Motion Skin: Warm, Dry, Intact Neurological: No New Focal Deficit Psy/Mental Status: Alert, Normal Affect, Normal Mood - Problem List Review Problem List Initiated/Reviewed/Updated: Yes - Assessment Assessment:: POD #4 from closure of perforation of gastrojujunostomy. Date of surgery 2017. - Plan Plan:: 1. Keep on clear liquid diet. Encourage intake to 1500cc 2. Discontinue Collace 3. Finish magnesium citrate 4. Continue regaln and Zofran schedule for nausea 5. Draw labs in the am 6. Reevaluate prn or in the am
[2018-02-10] MEDS ORDERED: Magnesium Hydroxide 400 MG/5 ML Susp 30 ML Cup PO PRN (08:07)
--- NOTE | 2018-02-10 08:07 | OR ---
DATE OF PROCEDURE: 02/06/2018 PREOPERATIVE DIAGNOSIS: Perforated gastrojejunostomy with associated pneumoperitoneum. POSTOPERATIVE DIAGNOSES: Perforated gastrojejunostomy with associated pneumoperitoneum and perigastric inflammatory fluid collection. OPERATIVE PROCEDURES: Diagnostic laparoscopy with: A. Closure of perforation of gastrojejunostomy (220799). B. Drainage of perigastric inflammatory fluid collection (701996). ANESTHESIA: General. SAP PI DEVELOPER: PAS. Champ INDICATION FOR PROCEDURE: This is a 37-year-old once again presenting with pneumoperitoneum, in this case, roughly 36 hours status post upper GI endoscopy, which otherwise left the hospital feeling reasonably well. She presented to the emergency room in [place] overnight with abdominal pain, and CT scan showed once again significant pneumoperitoneum. The patient was otherwise very stable in appearance from a clinical standpoint and was transferred here to undergo a diagnostic laparoscopy, laparotomy if necessary, and closure of any identifiable perforation and drainage of fluid collection. Potential risks of the procedure were reviewed including bleeding, infection, possibility of recurrent or persistent problems with the anastomosis, such as stricture, perforation or additional abscess formation over time were all reviewed, and the patient wishes to proceed. One additional note on this patient is that both of the dilations that resulted in perforations were with a relatively small caliber dilator, i.e. 36-Hungarian, and appeared to be otherwise completely uncomplicated. Given this, the plan subsequent to today's procedure would most likely be placement of an endoscopic stent across the gastrojejunostomy, so as to provide a period of sustained dilation without need for additional upper GI endoscopies and dilation, which seem to be unusually fraught with risk of perforation in this case. Assuming the procedure today goes well and her clinical course overnight is otherwise unremarkable, we will proceed with the upper endoscopy and stent placement tomorrow. DETAILS OF PROCEDURE: The patient was taken to the operating room and after general endotracheal anesthesia was induced, the abdomen was prepped and draped. At 15 cm inferior and 5 cm left of xiphoid process, transverse incision was made. The peritoneal cavity entered under direct vision with an Optiview trocar and inflated to 15 mmHg pressure with CO2. Following this, four additional 5-mm trocars were placed across her mid abdomen, and general exploration was undertaken. As expected, the patient was noted to have a significant amount of inflammation, and as dissection occurred, this inflammation was largely centered along the left anterolateral aspect of the gastrojejunostomy, with that area being reddened and indurated. Upon dissection, a small inflammatory fluid collection was present, and this was evacuated and cultures obtained. Interestingly, the lesser omental tissue adjacent to the gastric cardia on the right side of the anastomosis was opened, and that face of the anastomosis, as well as posterior to it, was entirely free of any signs of inflammation without any adherence or edema present at that location. This would indicate that the likely point of perforation would have been in that left anterolateral aspect of the anastomosis. Anesthesia was then asked to inject some air into the gastric pouch, after a gastrointestinal balloon catheter was placed, and with this being irrigated with antibiotic-containing saline solution, no overt air bubbles could be seen at this point. The presumed site of the perforation was then suture-ligated with a figure-of- eight stitch of 3-0 Vicryl seromuscular stitch and then subsequently treated with some fibrin sealant. The omentum was then placed up over that area with fibrin sealant as well. A single Ky-Saba drain was then taken out through the left lateral trocar site and positioned adjacent to the anterolateral aspect of the anastomosis and from there up into the splenic fossa. Bilateral transversus abdominis plane blocks were then placed with direct visualization of the needle from within the abdomen in the correct plane with standard solution being placed bilaterally. At that point, no further problems were noted. Remaining trocars were removed and the peritoneal cavity deflated. Incisions were closed with 4-0 Vicryl skin stitch. Dressings applied. The patient was taken to the recovery room in satisfactory condition. Spencer Pagan MD /[id number]
[2018-02-10] MEDS: Multivitamins with Iron Tab.Chew PO SCH (09:31)
[2018-02-10] MEDS: Escitalopram 10 MG Tab PO SCH (09:31)
[2018-02-10] MEDS: tiZANidine 4 MG Tab PO SCH (09:31)
[2018-02-10] MEDS: Scopolamine 1.5 MG Transdermal Patch TOP SCH (09:32)
[2018-02-10] MEDS: SCOPOLAMINE PATCH CHECK TOP SCH (09:33)
[2018-02-10] MEDS: Dextrose 5%-Lactated Ringers 1,000 ML IV SCH ×2 (10:26→23:09)
[2018-02-10] MEDS: Pantoprazole 40 MG Vial IV SCH (11:15)
[2018-02-10] MEDS ORDERED: tiZANidine 2 MG Tab PO PRN (13:56)
[2018-02-11] MEDS: Metoclopramide 10 MG/2 ML SDV IVPUSH SCH (01:42)
[2018-02-11] MEDS: Clindamycin Phosphate 900 MG in Sodium Chloride 0.9% 100 ML IV SCH ×3 (01:43→17:53)
[2018-02-11] MEDS: Ondansetron 4 MG/2 ML SDV IVPUSH SCH (04:52)
[2018-02-11] MEDS: Acetaminophen 325 MG Tab PO SCH (05:07)
[2018-02-11] MEDS: Piperacillin/Tazobactam/Dext 3.375 GM in Premix Bag 1 BAG IV SCH ×4 (05:07→22:25)
[2018-02-11] MEDS ORDERED: diphenhydrAMINE 25 MG Cap PO PRN (07:13)
--- NOTE | 2018-02-11 07:52 | PN ---
DATE OF SERVICE: 02/09/2018 The patient has now been afebrile with stable vital signs. When she is awake, she has good O2 saturations on room air, and I think the issue of atelectasis is resolving. Oral intake was around 600 mL, and she does feel like she will be able to advance that today. Once we get to around 1500 mL over a 24-hour period, we will at that point switch her over to strictly oral medication and perhaps get her home with the stent hopefully staying in for 2 or 3 weeks. Spencer Pagan MD /[id number]
[2018-02-11] MEDS: Escitalopram 10 MG Tab PO SCH (08:04)
[2018-02-11] MEDS: SCOPOLAMINE PATCH CHECK TOP SCH (08:04)
[2018-02-11] MEDS: Multivitamins with Iron Tab.Chew PO SCH (08:04)
[2018-02-11] MEDS: Acetaminophen/HYDROcodone 108-2.5 MG/5 ML Soln 15 ML UD Cup PO PRN ×4 (08:05→22:28)
--- NOTE | 2018-02-11 08:52 | PN ---
DATE OF SERVICE: 02/11/2018 SUBJECTIVE: Montse was taking tizanidine 4 mg on a regular basis and it was causing her to be too sedated, which decreased her oral intake. This dose was changed to just 2 mg at bedtime. Oral intake was 670. She states today she is having less pain, is feeling better, continues to be nauseated, but she also states that has improved. REVIEW OF SYSTEMS: Remainder of review of systems negative for any pertinent positives and negatives. OBJECTIVE: GENERAL: Montse Salazar is a pleasant 37-year-old female. VITAL SIGNS: TPR 97.8, 86, 18, and blood pressure 104/62. HEENT: Negative. NECK: Supple. HEART: Regular rate and rhythm. LUNGS: Clear. ABDOMEN: Incisions look good. SAMIR drain has put out 60 mL of a light pink serosanguineous drainage. Abdominal binder has been on. EXTREMITIES: Reveal 1+ peripheral edema. There is no calf tenderness. ASSESSMENT: Diagnostic laparoscopy with closure of perforation of the gastrojejunostomy and drainage of perigastric fluid collection for perforated gastrojejunostomy with perigastric inflammation and fluid collection. Date of surgery, 02/06/2018. PLAN: 1. Discontinue TUNNEL MINER and continuous pulse ox. 2. Discontinue Reglan IV. 3. Discontinue Zofran IV. 4. Discontinue Benadryl IV. 5. Hydrocodone-acetaminophen elixir 15 mL q.4 hours p.r.n. pain. 6. Reglan 10 mg solution q.6 hours for nausea. 7. Zofran ODT 4 mg sublingual q.4 hours p.r.n. nausea. 8. Benadryl 25-50 mg q.4 hours p.r.n. itching. 9. Dressing off, may shower. 10.Communication order, 3 med cups per hour, record at bedside. 11.Goal of 5963-6267 mL of liquid in order to be discharged to home. 12.We will evaluate p.r.n. or in a.m. Mandy Bob PA-C /[id number]
[2018-02-11] MEDS: Dextrose 5%-Lactated Ringers 1,000 ML IV SCH ×2 (10:33→22:20)
[2018-02-11] MEDS: METOCLOPRAMIDE 5 MG/5 ML PO SCH ×3 (10:35→19:29)
[2018-02-11] MEDS: Pantoprazole 40 MG Delayed-Release Granules 1 Packet PO SCH (10:35)
[2018-02-11] MEDS: Ondansetron 4 MG Tab.DIS PO PRN ×2 (17:52→22:25)
[2018-02-12] MEDS: Clindamycin Phosphate 900 MG in Sodium Chloride 0.9% 100 ML IV SCH ×3 (03:31→17:43)
[2018-02-12] MEDS: Ondansetron 4 MG Tab.DIS PO PRN ×3 (03:46→15:07)
[2018-02-12] MEDS: Acetaminophen/HYDROcodone 108-2.5 MG/5 ML Soln 15 ML UD Cup PO PRN (03:46)
[2018-02-12] MEDS: Piperacillin/Tazobactam/Dext 3.375 GM in Premix Bag 1 BAG IV SCH ×4 (04:29→22:33)
[2018-02-12] MEDS: METOCLOPRAMIDE 5 MG/5 ML PO SCH ×4 (07:17→20:33)
[2018-02-12] MEDS: HYDROmorphone 2 MG Tab PO PRN ×4 (08:24→22:33)
[2018-02-12] MEDS: Multivitamins with Iron Tab.Chew PO SCH (08:28)
[2018-02-12] MEDS: SCOPOLAMINE PATCH CHECK TOP SCH (08:29)
[2018-02-12] MEDS: Escitalopram 10 MG Tab PO SCH (08:29)
--- NOTE | 2018-02-12 09:54 | PN ---
DATE OF SERVICE: 02/12/2018 SUBJECTIVE: Montse states her pain is controlled. She does not tolerate the Hycet, does not like the taste of it, makes her nauseated. Nausea seems to continue to be an issue for her, but manageable. Oral intake was 750. REVIEW OF SYSTEMS: Remainder of review of systems negative for any pertinent positives and negatives. OBJECTIVE: GENERAL: Montse Salazar is a 37-year-old female. She is alert and orientated, sitting at the side of bed. VITAL SIGNS: TPR 98.5, 82, 16, and blood pressure 122/73. HEENT: Negative. NECK: Supple. HEART: Regular rate and rhythm. LUNGS: Clear. ABDOMEN: Dressings dry and intact. Abdominal binder is on. EXTREMITIES: Continues to reveal trace peripheral edema. ASSESSMENT: Diagnostic laparoscopy with closure of perforation of the gastrojejunostomy and drainage of perigastric fluid collection for perforated gastrojejunostomy with perigastric inflammation and fluid collection. Date of surgery, 02/06/2018. PLAN: 1. Dietary consult. 2. Bariatric consult with social work coordinator. 3. Discontinue Hycet. 4. Dilaudid 2 mg 1 to 2 every 4 hours p.r.n. pain. 5. Encouragement given to drink 3 med cups per hour. 6. We will follow up p.r.n. or in a.m. Mandy Bob PA-C /[id number]
[2018-02-12] MEDS: Dextrose 5%-Lactated Ringers 1,000 ML IV SCH ×2 (10:07→23:22)
[2018-02-12] MEDS: Pantoprazole 40 MG Delayed-Release Granules 1 Packet PO SCH (11:44)
[2018-02-13] MEDS: Clindamycin Phosphate 900 MG in Sodium Chloride 0.9% 100 ML IV SCH ×2 (02:58→10:34)
[2018-02-13] MEDS: Piperacillin/Tazobactam/Dext 3.375 GM in Premix Bag 1 BAG IV SCH ×2 (04:17→09:30)
[2018-02-13] MEDS: HYDROmorphone 2 MG Tab PO PRN ×2 (07:56→11:42)
[2018-02-13] MEDS: METOCLOPRAMIDE 5 MG/5 ML PO SCH ×2 (07:56→11:16)
[2018-02-13] MEDS: SCOPOLAMINE PATCH CHECK TOP SCH (09:31)
[2018-02-13] MEDS: Escitalopram 10 MG Tab PO SCH (09:31)
[2018-02-13] MEDS: Multivitamins with Iron Tab.Chew PO SCH (09:31)
[2018-02-13] MEDS: Scopolamine 1.5 MG Transdermal Patch TOP SCH (10:33)
[2018-02-13] MEDS: Pantoprazole 40 MG Delayed-Release Granules 1 Packet PO SCH (11:16)
--- NOTE | 2018-02-14 11:30 | DISCH ---
FINAL DIAGNOSIS: Recurrent perforation at gastrojejunostomy status post upper endoscopy and dilation. SECONDARY DIAGNOSES: 1. Perigastric inflammatory fluid collection. 2. Bariatric surgery status. 3. History of depression. 4. History of osteoarthritis. OPERATIVE PROCEDURE: On 02/06/2018, diagnostic laparoscopy with, 1. Closure of perforation of gastrojejunostomy. 2. Drainage of perigastric inflammatory fluid collection. On 02/07/2018, upper GI endoscopy with placement of a covered stent overlying the gastrojejunostomy. HOSPITAL COURSE: This is a 37-year-old, recently status post Tha-en-Y gastric bypass, presenting with a recurrent pneumoperitoneum after an upper endoscopy, roughly 36 hours earlier. The patient was seen in [place] and transferred here. She had a previous upper endoscopy with resultant perforation as well and on 02/06/2018, the patient underwent a diagnostic laparoscopy with suture of the likely point of perforation with drainage of perigastric fluid collection. As the patient would likely re-develop strictures and be risk for additional perforation, we elected then to place an endoscopic stent across the gastrojejunostomy, that was done on 02/07/2018 and we will plan to leave that in until this 03/01/2018. She will be scheduled to return at that time for upper endoscopy removal of stent. She has been instructed to stay on a liquid diet until that time. She will continue her home medications plus Reglan 10 mg p.o. q.i.d., and Dilaudid 2 to 4 mg p.o. q.4 hours p.r.n. pain, #50 being written and she was instructed to try to maintain at least 1500 mL of liquids in per day and remain sitting up while eating and as well as for about 30 minutes later, and remain on a liquid diet until the stent is removed.
== END 2018-02-13 11:40 | disposition home or self-care (01) | DRG 909 ==
LOC: JP.ED 00:55 → JP.MS 02:26 → EEVIPCON 02:26
PROVIDERS: ADMIT Surgery; ATTEND Surgery
PROC: 0DQA4ZZ Repair Jejunum, Percutaneous Endoscopic Approach (ICD-10-PCS; principal; 2018-02-06)
PROC: 0W9G4ZX Drainage of Peritoneal Cavity, Percutaneous Endoscopic Approach, Diagnostic (ICD-10-PCS; 2018-02-06)
PROC: 0D7A8DZ Dilation of Jejunum with Intraluminal Device, Via Natural or Artificial Opening Endoscopic (ICD-10-PCS; 2018-02-07)
DX: K91.71 Accidental puncture and laceration of a digestive system organ or structure during a digestive system procedure (principal); K66.8 Other specified disorders of peritoneum; F32.9 Major depressive disorder, single episode, unspecified; Z98.84 Bariatric surgery status; Z88.8 Allergy status to other drugs, medicaments and biological substances; Z79.899 Other long term (current) drug therapy; K21.9 Gastro-esophageal reflux disease without esophagitis; M19.90 Unspecified osteoarthritis, unspecified site; E66.9 Obesity, unspecified; Z68.35 Body mass index [BMI] 35.0-35.9, adult; E53.8 Deficiency of other specified B group vitamins; Y83.8 Other surgical procedures as the cause of abnormal reaction of the patient, or of later complication, without mention of misadventure at the time of the procedure
CPT/HCPCS: 36415; 74018; 74018-26; 74176; 80048; 80053; 81001; 82728; 83735; 84100; 85027; 87070; 87075; 87086; 87088; 87205; 94762; 99285-25; A9270-GY; C1874; C9113; J0171; J0330; J1100; J1170; J1200; J2060; J2185; J2250; J2270; J2310; J2405; J2543; J2704; J2710; J2765; J2795; J3010; J3475; J3480; J3490; J7030; J7042; J7050; J7120; S0077

== ENCOUNTER 2018-02-23 08:13 | Inpatient (IN) | payer OTHER ==
[2018-02-23] MEDS ORDERED: Dextrose 5%-Lactated Ringers 1,000 ML IV SCH (08:45)
[2018-02-23] MEDS ORDERED: Morphine 2 MG/ML Syringe IVPUSH ONE (09:31)
[2018-02-23] MEDS ORDERED: Glycopyrrolate 0.2 MG/ML 2 ML SDV IVPUSH ONE (10:00)
[2018-02-23] MEDS ORDERED: fentaNYL 100 MCG/2 ML SDV ONE (10:28)
[2018-02-23] MEDS ORDERED: Midazolam 1 MG/ML 2 ML SDV ONE (10:37)
[2018-02-23] MEDS ORDERED: Propofol 200 MG/20 ML SDV ONE ×4 (11:13→11:41)
[2018-02-23] MEDS ORDERED: Succinylcholine 200 MG/10 ML MDV ONE (11:41)
[2018-02-23] MEDS ORDERED: Neostigmine Methylsulfate 1 MG/ML 5 ML Syringe ONE (11:41)
[2018-02-23] MEDS ORDERED: Dexamethasone 4 MG/ML SDV ONE (11:41)
[2018-02-23] MEDS ORDERED: Glycopyrrolate 0.2 MG/ML 5 ML MDV ONE (11:41)
[2018-02-23] MEDS ORDERED: Ondansetron 4 MG/2 ML SDV ONE (11:41)
[2018-02-23] MEDS ORDERED: Rocuronium 50 MG/5 ML Vial ONE (11:41)
[2018-02-23] MEDS: Meropenem 500 MG SDV ONE ×2 (12:00→12:42)
[2018-02-23] MEDS ORDERED: Ketamine 500 MG/5 ML MDV IV SCH (13:00)
[2018-02-23] MEDS ORDERED: Lidocaine 0.4%/D5W 2 GM/500 ML BAG IV SCH (13:00)
[2018-02-23] MEDS ORDERED: Lidocaine 2% 100 MG/5 ML Syringe IVPUSH ONE (13:00)
[2018-02-23] MEDS ORDERED: Ropivacaine 47 ML, Dexamethasone 8 MG, EPINEPHrine 0.4 MG, Sodium Chloride 0.9% 30.6 ML NERVRT SCH ×4 (13:00)
[2018-02-23] MEDS ORDERED: Labetalol 20 MG/4 ML Syringe ONE (13:41)
[2018-02-23] MEDS ORDERED: Lactated Ringers 1,000 ML ONE (13:41)
[2018-02-23] MEDS ORDERED: fentaNYL 250 MCG/5 ML SDV ONE (13:41)
[2018-02-23] MEDS ORDERED: HYDROmorphone/Normal Saline 15 MG/30 ML PCA IV PRN (13:49)
[2018-02-23] MEDS ORDERED: fentaNYL 100 MCG/2 ML SDV IVPUSH ONE (14:21)
[2018-02-23] MEDS ORDERED: hydrOXYzine HCl 100 MG/2 ML SDV IM ONE (14:21)
[2018-02-23] MEDS ORDERED: Naloxone 0.4 MG/ML SDV IV PRN (15:17)
[2018-02-23] MEDS ORDERED: MVI, Adult with Vitamin K 10 ML, Thiamine 200 MG, Chromium/Copper/Mang/Selen/Zn 1 ML in... IV SCH ×4 (16:00)
[2018-02-23] MEDS ORDERED: Scopolamine 1.5 MG Transdermal Patch TOP SCH (16:00)
[2018-02-23] MEDS ORDERED: Labetalol 20 MG/4 ML Syringe IVPUSH PRN (16:00)
[2018-02-23] MEDS: diphenhydrAMINE 50 MG/ML SDV IVPUSH PRN (16:55)
[2018-02-23] MEDS: Pantoprazole 40 MG Vial IVPUSH SCH (16:55)
[2018-02-23] MEDS: Dextrose 5%-Lactated Ringers 1,000 ML IV SCH ×2 (16:55→23:38)
[2018-02-23] MEDS: Acetaminophen Soln 650 MG/20.3 ML UD Cup PO SCH ×2 (16:55→21:04)
[2018-02-23] MEDS: Gabapentin 250 MG/5 ML Solution ML 470 ML Bottle PO SCH ×2 (17:13→21:04)
[2018-02-23] MEDS: Meropenem 500 MG in Sodium Chloride 0.9% 50 ML IV SCH ×2 (19:36→23:39)
[2018-02-24] MEDS ORDERED: Iohexol 647 MG/ML 50 ML SDV PO STA (03:34)
[2018-02-24] MEDS: Acetaminophen Soln 650 MG/20.3 ML UD Cup PO SCH ×4 (04:57→22:21)
[2018-02-24] MEDS: Meropenem 500 MG in Sodium Chloride 0.9% 50 ML IV SCH ×4 (05:05→23:43)
--- NOTE | 2018-02-24 06:37 | PCM.PN ---
- General Info Date of Service: 02/24/18 Admission Dx/Problem (Free Text): Esophageal stent removal. Subjective Update: Patient is POD #1. She was tachycardic throughout the night that increased while up or ambulating. The lidocaine was discontinued and the patients heart rate decreased although is still tachycardic. She was exhausted and hard to wake. She had slept through the night and now seems to be more awake. Other than the tachycardia her vitals were stable over night and there were not major events. She is up, ambulating, voiding and drinking fluids. Functional Status: Reports: Pain Controlled, Tolerating Diet, Ambulating, Urinating - Review of Systems General: Reports: No Symptoms HEENT: Reports: No Symptoms Pulmonary: Reports: No Symptoms Cardiovascular: Reports: No Symptoms Gastrointestinal: Reports: No Symptoms Genitourinary: Reports: No Symptoms Musculoskeletal: Reports: No Symptoms Skin: Reports: No Symptoms Neurological: Reports: No Symptoms Psychiatric: Reports: No Symptoms Systems Review Comment:: Remainder of ROS is negative for any pertinent negatives or positives. - Patient Data Vitals - Most Recent: Last Vital Signs Temp 97.1 F 02/24/18 05:00 Pulse 106 H 02/24/18 06:00 Resp 16 02/24/18 06:00 BP 115/77 02/24/18 06:00 Pulse Ox 93 L 02/24/18 06:00 Weight - Most Recent: 208 lb 3.2 oz I&O - Last 24 Hours: Intake & Output 02/23/18 02/23/18 02/24/18 14:59 22:59 06:59 Intake Total 100 1692 1879 Output Total 145 320 470 Balance -45 1372 1409 Lab Results Last 24 Hours: Laboratory Results - last 24 hr 02/24/18 02/24/18 Range/Units 04:20 04:20 WBC 12.8 H (4.5-11.0) K/uL RBC 5.44 (3.30-5.50) M/uL Hgb 14.7 D (12.0-15.0) g/dL Hct 42.8 (36.0-48.0) % MCV 79 L (80-98) fL MCH 27 (27-31) pg MCHC 34 (32-36) % Plt Count 379 (150-400) K/uL Neut % (Auto) 85 H (36-66) % Lymph % (Auto) 7 L (24-44) % [place] % (Auto) 9 H (2-6) % Eos % (Auto) 0 L (2-4) % Baso % (Auto) 0 (0-1) % Sodium 133 L (140-148) mmol/L Potassium 4.0 (3.6-5.2) mmol/L Chloride 103 (100-108) mmol/L Carbon Dioxide 19 L (21-32) mmol/L Anion Gap 15.0 H (5.0-14.0) mmol/L BUN 3 L (7-18) mg/dL Creatinine 1.0 (0.6-1.0) mg/dL Est Cr Clr Drug Dosing 76.36 mL/min Estimated GFR (MDRD) > 60 (>60) Glucose 307 H (74-106) mg/dL Calcium 8.8 (8.5-10.1) mg/dL Phosphorus 2.1 L (2.5-4.9) mg/dL Magnesium 1.3 L D (1.8-2.4) mg/dL Total Bilirubin 0.6 (0.2-1.0) mg/dL AST 29 (15-37) U/L ALT 29 (12-78) U/L Alkaline Phosphatase 104 (46-116) U/L Total Protein 6.4 (6.4-8.2) g/dL Albumin 2.3 L (3.4-5.0) g/dL Globulin 4.1 H (2.3-3.5) g/dL Albumin/Globulin Ratio 0.6 L (1.2-2.2) Med Orders - Current: Current Medications Acetaminophen (Tylenol) [address] [facility] Last Admin: 02/24/18 04:57 Dose: 650 mg Cyanocobalamin (Vitamin B12) 1,000 mcg IM ONETIME ONE Stop: 02/25/18 09:01 Diphenhydramine HCl (Benadryl) 25 - 50 mg IVPUSH Q4H PRN PRN Reason: ITCHING Last Admin: 02/23/18 16:55 Dose: 50 mg Gabapentin (Neurontin) 300 mg PO TID BOBBY Last Admin: 02/23/18 21:04 Dose: 300 mg Heparin Sodium (Porcine) (Heparin Sodium) 5,[address] [facility] Hydromorphone HCl (Dilaudid [employer] 15 Mg In Ns 30 Ml) 0 mg IV ASDIRECTED PRN; Protocol PRN Reason: Pain Last Admin: 02/23/18 14:08 Dose: 0.3 mg Hydroxyzine HCl (Vistaril) 75 - 100 mg IM Q4H PRN PRN Reason: pain Lidocaine HCl/Dextrose (Lidocaine 2 Gm/D5w 500 Ml) 2 gm in 500 mls @ 22.5 mls/ hr IV .[id number] [facility] Stop: 02/24/18 11:13 Last Admin: 02/23/18 15:14 Dose: 1.5 mg/min, 22.5 mls/hr Dextrose/Lactated Ringer's (Dextrose 5%-Lactated Ringers) 1,000 mls @ 175 mls/ hr IV ASDIRECTED [facility] Last Admin: 02/23/18 23:38 Dose: 175 mls/hr Meropenem 500 mg/ Sodium (Chloride) 50 mls @ 100 mls/hr IV Q6H [facility] Stop: 02/25/18 12:29 Last Admin: 02/24/18 05:05 Dose: 100 mls/hr Labetalol HCl (Normodyne) 5 - 15 mg IVPUSH Q1H PRN PRN Reason: SBP over 160 OR DBP over 95 Metoclopramide HCl (Reglan) 10 mg IVPUSH Q6H PRN PRN Reason: NAUSEA NOT CONTROL BY ZOFRAN Miscellaneous Information (Remove Patch) 1 ea TRDERM ONETIME ONE Stop: 02/25/18 10:01 Naloxone HCl (Narcan) 0.1 mg IV ASDIRECTED PRN PRN Reason: decreased respiratory rate Scopolamine Patch (Check) [address] [facility] Stop: 02/25/18 16:01 Ondansetron HCl (Zofran) 4 mg IVPUSH Q4H PRN PRN Reason: Nausea/Vomiting Pantoprazole Sodium (Protonix Iv) [address] [facility] Last Admin: 02/23/18 16:55 Dose: 40 mg Scopolamine (Transderm-Scop) 1.[address] [facility] Stop: 02/25/18 10:00 Last Admin: 02/23/18 16:56 Dose: 1.5 mg Discontinued Medications Ropivacaine 47 ml/Dexamethasone 8 mg/Epinephrine HCl 0.4 mg/ Sodium Chloride 30.6 ml [address] [facility] Last Admin: 02/23/18 13:20 Dose: 80 syringe Dexamethasone (Dexamethasone) Confirm Administered Dose 4 mg .ROUTE .STK-MED ONE Stop: 02/23/18 11:42 Fentanyl (Sublimaze) Confirm Administered Dose 100 mcg .ROUTE .STK-MED ONE Stop: 02/23/18 10:29 Fentanyl (Sublimaze) Confirm Administered Dose 250 mcg .ROUTE .STK-MED ONE Stop: 02/23/18 13:42 Fentanyl (Sublimaze) 100 mcg IVPUSH ONETIME ONE Stop: 02/23/18 14:22 Last Admin: 02/23/18 14:29 Dose: 100 mcg Glycopyrrolate (Glycopyrrolate) 0.4 mg IVPUSH ONETIME ONE Stop: 02/23/18 10:01 Last Admin: 02/23/18 10:30 Dose: 0.4 mg Glycopyrrolate (Robinul) Confirm Administered Dose 1 mg .ROUTE .STK-MED ONE Stop: 02/23/18 11:42 Hydroxyzine HCl (Vistaril) 100 mg IM ONETIME ONE Stop: 02/23/18 14:22 Last Admin: 02/23/18 14:29 Dose: 100 mg Dextrose/Lactated Ringer's (Dextrose 5%-Lactated Ringers) 1,000 mls @ 100 mls/ hr IV ASDIRECTED [facility] Last Admin: 02/23/18 09:20 Dose: 100 mls/hr Ketamine HCl 100 mg/ Sodium (Chloride) 100 mls @ 18.48 mls/hr IV ASDIRECTED [facility] Lactated Ringer's (Ringers, Lactated) Confirm Administered Dose 1,000 mls @ as directed .ROUTE .STK-MED ONE Stop: 02/23/18 13:42 Iohexol (Omnipaque-300) 50 ml PO .ASDIRECTED STA Stop: 02/24/18 03:35 Last Admin: 02/24/18 03:46 Dose: 50 ml Ketamine HCl (Ketalar) [address] [facility] Labetalol HCl (Normodyne) Confirm Administered Dose 20 mg .ROUTE .STK-MED ONE Stop: 02/23/18 13:42 Lidocaine HCl (Xylocaine 2%) 112 mg IVPUSH ONETIME ONE Stop: 02/23/18 13:01 Last Admin: 02/23/18 15:54 Dose: Not Given Meropenem (Merrem) Confirm Administered Dose 1,000 mg .ROUTE .STK-MED ONE Stop: 02/23/18 11:54 Last Admin: 02/23/18 12:42 Dose: 500 mg Midazolam HCl (Versed 1 Mg/Ml) Confirm Administered Dose 2 mg .ROUTE .STK-MED ONE Stop: 02/23/18 10:38 Morphine Sulfate (Morphine) 2 mg IVPUSH ONETIME ONE Stop: 02/23/18 09:32 Last Admin: 02/23/18 09:48 Dose: 2 mg Neostigmine Methylsulfate (Neostigmine) Confirm Administered Dose 5 mg .ROUTE .STK-MED ONE Stop: 02/23/18 11:42 Ondansetron HCl (Zofran) Confirm Administered Dose 4 mg .ROUTE .STK-MED ONE Stop: 02/23/18 11:42 Propofol (Diprivan 20 Ml) Confirm Administered Dose 200 mg .ROUTE .STK-MED ONE Stop: 02/23/18 11:14 Propofol (Diprivan 20 Ml) Confirm Administered Dose 200 mg .ROUTE .STK-MED ONE Stop: 02/23/18 11:35 Propofol (Diprivan 20 Ml) Confirm Administered Dose 400 mg .ROUTE .STK-MED ONE Stop: 02/23/18 11:35 Propofol (Diprivan 20 Ml) Confirm Administered Dose 200 mg .ROUTE .STK-MED ONE Stop: 02/23/18 11:42 Rocuronium [place] (Zemuron) Confirm Administered Dose 50 mg .ROUTE .STK-MED ONE Stop: 02/23/18 11:42 Succinylcholine Chloride (Quelicin) Confirm Administered Dose 200 mg .ROUTE .STK -MED ONE Stop: 02/23/18 11:42 - Exam General: Alert, Oriented, Cooperative HEENT: Pupils Equal, Mucous Membr. Moist/[place] Neck: Supple Lungs: Clear to Auscultation, Normal Respiratory Effort Cardiovascular: Regular Rate, Regular Rhythm Extremities: Normal Range of Motion Skin: Warm, Dry, Intact Neurological: No New Focal Deficit Psy/Mental Status: Alert, Normal Affect, Normal Mood - Problem List Review Problem List Initiated/Reviewed/Updated: Yes - Assessment Assessment:: Status post open esophageal stent removal and revision of RNY. - Plan Plan:: 1. Step two diet without solids or cereal 2. IV to decrease at 14:00 to 3. Magnesium sulfate 2gm IV q6h 4. Potassium Phosphate 20 mmole 85 mls/hr q3h IV 5. Recheck labs in the am 6. Discontinue Accu checks 7. Discontinue cardiac monitoring 8. PT Screening 9. Consult barriatric services 10. Consult dietary 11. Remove and replace scopolamine patch 12. Lidocaine 0.4% D5W 2gm in 500mL IV 1.5mg/min 13. Heparin 5,00 units subcut q12h sche 14. May shower 15. CBC on 02/25/2018 16. CMP on 02/25/2018 17. Dextrose 5% LR IV as directed 18. Escitalopram 10mg po qd 19. Hyoscyamine 0.125 mg SL Q4hr prn 20. Odansetron 4mg po q4h prn 21. Trazadone 50mg po bedtime prn for sleep 22. Reevaluate prn or in am
[2018-02-24] MEDS ORDERED: traZODone 50 MG Tab PO PRN (06:57)
[2018-02-24] MEDS ORDERED: Dextrose 5%-Lactated Ringers 1,000 ML IV SCH (07:00)
[2018-02-24] MEDS ORDERED: Morphine PF 150 MG/30 ML PCA Syringe IV PRN (07:36)
[2018-02-24] MEDS ORDERED: Naloxone 0.4 MG/ML SDV IV PRN (07:36)
[2018-02-24] MEDS: Dextrose 5%-Lactated Ringers 1,000 ML IV SCH (07:57)
[2018-02-24] MEDS: Heparin Sodium 5,000 Units/ML Vial SUBCUT SCH ×2 (08:00→19:48)
--- NOTE | 2018-02-24 08:41 | CR ---
UGI wo KUB HISTORY: eval R -Y GBP FINDINGS: After administration of oral contrast, upright views were obtained. Post operative changes gastric bypass. Surgical drains in place. No evidence for leak. Contrast passes freely into proximal small bowel loops. There is mild gaseous distention of colon IMPRESSION: No evidence for leak or obstruction.
[2018-02-24] MEDS: Escitalopram 10 MG Tab PO SCH (09:12)
[2018-02-24] MEDS: Gabapentin 250 MG/5 ML Solution ML 470 ML Bottle PO SCH ×2 (09:12→15:04)
[2018-02-24] MEDS: SCOPOLAMINE PATCH CHECK TOP SCH (09:13)
[2018-02-24] MEDS: Magnesium Sulfate/Water 2 GM in Premix Bag 1 BAG IV SCH ×3 (09:19→22:18)
[2018-02-24] MEDS: diphenhydrAMINE 50 MG/ML SDV IVPUSH PRN (09:34)
[2018-02-24] MEDS: Potassium Phosphates 20 MMOLE in Sodium Chloride 0.9% 250 ML IV SCH ×3 (10:44→16:55)
[2018-02-24] MEDS: Pantoprazole 40 MG Vial IVPUSH SCH (15:19)
[2018-02-24] MEDS: hydrOXYzine HCl 100 MG/2 ML SDV IM PRN (15:59)
[2018-02-24] MEDS ORDERED: Lactated Ringers 500 ML IV SCH (16:45)
[2018-02-24] MEDS ORDERED: Lactated Ringers 500 ML IV ONE (19:17)
[2018-02-25] MEDS: Magnesium Sulfate/Water 2 GM in Premix Bag 1 BAG IV SCH ×4 (03:09→23:12)
[2018-02-25] MEDS: Acetaminophen Soln 650 MG/20.3 ML UD Cup PO SCH ×4 (03:12→23:12)
[2018-02-25] MEDS: Meropenem 500 MG in Sodium Chloride 0.9% 50 ML IV SCH ×2 (05:06→12:41)
[2018-02-25] MEDS ORDERED: Lactated Ringers 1,000 ML IV SCH (07:30)
[2018-02-25] MEDS ORDERED: Furosemide 20 MG/2 ML VIAL IVPUSH ONE (08:00)
[2018-02-25] MEDS: SCOPOLAMINE PATCH CHECK TOP SCH (08:21)
[2018-02-25] MEDS: Heparin Sodium 5,000 Units/ML Vial SUBCUT SCH ×2 (08:23→20:12)
[2018-02-25] MEDS: Albumin 25% 50 ML IV SCH ×4 (08:23→15:54)
[2018-02-25] MEDS: Ondansetron 4 MG Tab.DIS PO PRN ×2 (08:23→13:44)
[2018-02-25] MEDS: Escitalopram 10 MG Tab PO SCH (08:23)
[2018-02-25] MEDS: hydrOXYzine HCl 100 MG/2 ML SDV IM PRN ×3 (08:46→18:20)
--- NOTE | 2018-02-25 08:59 | PN ---
DATE OF SERVICE: 02/25/2018 SUBJECTIVE: James pain has been controlled. Has been very lethargic, weak, dizzy. Scopolamine patch was discontinued. Urinary retention; Lao was replaced with 400 mL residual. Decreased urine output. She received two 500 mL boluses of lactated Ringer's. Afebrile. REVIEW OF SYSTEMS: Remainder of review of systems negative for any pertinent positives or negatives. OBJECTIVE: GENERAL: Sommer Salazar is a 37-year-old female, color pale. VITAL SIGNS: TPR 96.6, 86, 16. Blood pressure 110/57. HEENT: Negative. NECK: Supple. HEART: Regular rate and rhythm. LUNGS: Clear. ABDOMEN: Dressings are dry and intact. SAMIR drain #1 put out 34, SAMIR drain put out 37, both are a pink serosanguineous drainage. Abdominal binder has been on. EXTREMITIES: 2+ peripheral edema in the left and 1+ in the right lower extremities. There is no calf tenderness. ASSESSMENT: 1. Upper GI endoscopy on 02/23/2018. 2. Exploratory laparotomy with removal of stent from small bowel, revision of the gastrojejunostomy and placement of Interceed mesh for migrated esophageal stent, unable to be removed endoscopically, and recurrent stricturing and perforation of the gastrojejunostomy. Date of surgery, 02/23/2018. Surgeon, Spencer Pagan M.D. PLAN: 1. Give 1 L of lactated Ringer's over 6 hours. 2. Albumin 50 g IV daily x3 days. 3. Consult to Physical Therapy to evaluate and treat for postop rehabilitation. 4. Check CBC, CMP, and phos in the a.m. 5. Dressing off, may shower. 6. We will evaluate p.r.n. or in the a.m. Mandy Bob PA-C /[id number]
[2018-02-25] MEDS ORDERED: Cyanocobalamin (Vitamin B12) 1,000 MCG/ML SDV IM ONE (09:00)
[2018-02-25] MEDS: Potassium Chloride 20 MEQ, Lidocaine 1% 2 ML in Sodium Chloride 0.9% 100 ML IV SCH ×3 (10:06→14:36)
[2018-02-25] MEDS: Dextrose 5%-Lactated Ringers 1,000 ML IV SCH (14:48)
[2018-02-25] MEDS: Pantoprazole 40 MG Vial IVPUSH SCH (16:02)
[2018-02-26] MEDS: Magnesium Sulfate/Water 2 GM in Premix Bag 1 BAG IV SCH ×4 (03:54→21:29)
[2018-02-26] MEDS: Acetaminophen Soln 650 MG/20.3 ML UD Cup PO SCH ×4 (04:06→21:27)
--- NOTE | 2018-02-26 07:37 | PCM.PN ---
- General Info Date of Service: 02/26/18 Admission Dx/Problem (Free Text): Stricture and stenosis of esophagus. Status post open stent removal and revision of RNY. Subjective Update: Montse is POD #3. Her vitals were stable over night with no major problems. She slept well when left alone. The pain is currently not controlled on the SALES SERVICE REP. She received a Visteral shot to help with the pain. Today we are going to switch to oral pain medications in order to increase the time the pain medication is working. Patient has been struggling to get up out of bed and to ambulate. Going to try three medication cups to encourage fluid intake. Functional Status: Reports: Tolerating Diet, Urinating, Incentive Spirometry - Review of Systems General: Reports: Weakness, Fatigue, Malaise HEENT: Reports: No Symptoms Pulmonary: Reports: No Symptoms Cardiovascular: Reports: No Symptoms Gastrointestinal: Reports: Abdominal Pain, Decreased Appetite Genitourinary: Reports: No Symptoms Musculoskeletal: Reports: No Symptoms Skin: Reports: No Symptoms Neurological: Reports: No Symptoms Psychiatric: Reports: No Symptoms Systems Review Comment:: Remainder of ROS is negative for any pertinent negatives and positives. - Patient Data Vitals - Most Recent: Last Vital Signs Temp 97.1 F 02/26/18 03:57 Pulse 91 02/26/18 03:57 Resp 16 02/26/18 03:57 BP 125/81 02/26/18 03:57 Pulse Ox 93 L 02/26/18 07:26 Weight - Most Recent: 208 lb 3.202 oz I&O - Last 24 Hours: Intake & Output 02/25/18 02/26/18 02/26/18 22:59 06:59 14:59 Intake Total 546 1231 Output Total 275 630 Balance 271 601 Lab Results Last 24 Hours: Laboratory Results - last 24 hr 02/26/18 02/26/18 Range/Units 04:10 04:10 WBC 5.6 (4.5-11.0) K/uL RBC 3.59 (3.30-5.50) M/uL Hgb 9.7 L (12.0-15.0) g/dL Hct 30.0 L (36.0-48.0) % MCV 84 (80-98) fL MCH 27 (27-31) pg MCHC 32 (32-36) % Plt Count 234 (150-400) K/uL Sodium 142 (140-148) mmol/L Potassium 3.6 (3.6-5.2) mmol/L Chloride 107 (100-108) mmol/L Carbon Dioxide 29 (21-32) mmol/L Anion Gap 6.1 (5.0-14.0) mmol/L BUN 2 L (7-18) mg/dL Creatinine 0.5 L (0.6-1.0) mg/dL Est Cr Clr Drug Dosing 152.31 mL/min Estimated GFR (MDRD) > 60 (>60) Glucose 121 H (74-106) mg/dL Calcium 7.7 L (8.5-10.1) mg/dL Phosphorus 2.8 (2.5-4.9) mg/dL Total Bilirubin 0.4 (0.2-1.0) mg/dL AST 28 (15-37) U/L ALT 20 (12-78) U/L Alkaline Phosphatase 76 (46-116) U/L Total Protein 4.8 L (6.4-8.2) g/dL Albumin 2.4 L (3.4-5.0) g/dL Globulin 2.4 (2.3-3.5) g/dL Albumin/Globulin Ratio 1.0 L (1.2-2.2) Med Orders - Current: Current Medications Acetaminophen (Tylenol) 650 mg PO Q6H [facility] Last Admin: 02/26/18 04:06 Dose: Not Given Diphenhydramine HCl (Benadryl) 25 - 50 mg IVPUSH Q4H PRN PRN Reason: ITCHING Last Admin: 02/24/18 09:34 Dose: 0.1 mg Escitalopram Oxalate (Lexapro) 10 mg PO DAILY [facility] Last Admin: 02/25/18 08:23 Dose: 10 mg Heparin Sodium (Porcine) (Heparin Sodium) 5,000 units SUBCUT Q12H [facility] Last Admin: 02/25/18 20:12 Dose: 5,000 units Hydroxyzine HCl (Vistaril) 75 - 100 mg IM Q4H PRN PRN Reason: pain Last Admin: 02/25/18 18:20 Dose: 100 mg Hyoscyamine (Hyomax-Sl) 0.125 mg SL Q4H PRN PRN Reason: esophageal spasms Magnesium Sulfate 2 gm/ Premix 50 mls @ 25 mls/hr IV Q6H [facility] Stop: 02/27/18 05:59 Last Admin: 02/26/18 03:54 Dose: 25 mls/hr Dextrose/Lactated Ringer's (Dextrose 5%-Lactated Ringers) 1,000 mls @ 100 mls/ hr IV ASDIRECTED [facility] Last Admin: 02/25/18 14:48 Dose: 100 mls/hr Lactated Ringer's (Ringers, Lactated) 1,000 mls @ 166 mls/hr IV ASDIRECTED [facility] Last Admin: 02/25/18 08:24 Dose: 166 mls/hr Albumin Human (Flexbumin 25%) 50 mls @ 25 mls/hr IV DAILY [facility] Stop: 02/27/18 10:59 Last Admin: 02/25/18 08:23 Dose: 25 mls/hr Albumin Human (Flexbumin 25%) 50 mls @ 25 mls/hr IV Q24H [facility] Stop: 02/27/18 12:59 Last Admin: 02/25/18 11:29 Dose: 25 mls/hr Albumin Human (Flexbumin 25%) 50 mls @ 25 mls/hr IV Q24H [facility] Stop: 02/27/18 14:59 Last Admin: 02/25/18 13:26 Dose: 25 mls/hr Albumin Human (Flexbumin 25%) 50 mls @ 25 mls/hr IV Q24H [facility] Stop: 02/27/18 16:59 Last Admin: 02/25/18 15:54 Dose: 25 mls/hr Labetalol HCl (Normodyne) 5 - 15 mg IVPUSH Q1H PRN PRN Reason: SBP over 160 OR DBP over 95 Metoclopramide HCl (Reglan) 10 mg IVPUSH Q6H PRN PRN Reason: NAUSEA NOT CONTROL BY ZOFRAN Morphine Sulfate (Morphine Ironer Hand 150 Mg In 30 Ml) 0 mg IV ASDIRECTED PRN; Protocol PRN Reason: PAIN Last Admin: 02/24/18 07:51 Dose: 150 mg Naloxone HCl (Narcan) 0.1 mg IV ASDIRECTED PRN PRN Reason: decreased respiratory rate Naloxone HCl (Narcan) 0.1 mg IV ASDIRECTED PRN PRN Reason: RESP Ondansetron HCl (Zofran) 4 mg IVPUSH Q4H PRN PRN Reason: Nausea/Vomiting Ondansetron HCl (Zofran Odt) 4 mg PO Q4H PRN PRN Reason: Nausea/Vomiting Last Admin: 02/25/18 13:44 Dose: 4 mg Pantoprazole Sodium (Protonix Iv) 40 mg IVPUSH Q24H [facility] Last Admin: 02/25/18 16:02 Dose: 40 mg Trazodone HCl (Trazodone) 50 mg PO BEDTIME PRN PRN Reason: Sleep Discontinued Medications Ropivacaine 47 ml/Dexamethasone 8 mg/Epinephrine HCl 0.4 mg/ Sodium Chloride 30.6 ml 0 ml NERVRT ASDIRECTED [facility] Last Admin: 02/23/18 13:20 Dose: 80 syringe Cyanocobalamin (Vitamin B12) 1,000 mcg IM ONETIME ONE Stop: 02/25/18 09:01 Last Admin: 02/25/18 08:22 Dose: 1,000 mcg Dexamethasone (Dexamethasone) Confirm Administered Dose 4 mg .ROUTE .STK-MED ONE Stop: 02/23/18 11:42 Fentanyl (Sublimaze) Confirm Administered Dose 100 mcg .ROUTE .STK-MED ONE Stop: 02/23/18 10:29 Fentanyl (Sublimaze) Confirm Administered Dose 250 mcg .ROUTE .STK-MED ONE Stop: 02/23/18 13:42 Fentanyl (Sublimaze) 100 mcg IVPUSH ONETIME ONE Stop: 02/23/18 14:22 Last Admin: 02/23/18 14:29 Dose: 100 mcg Furosemide (Lasix) 20 mg IVPUSH ONETIME ONE Stop: 02/25/18 08:01 Last Admin: 02/25/18 08:22 Dose: 20 mg Gabapentin (Neurontin) 300 mg PO TID [facility] Last Admin: 02/24/18 15:04 Dose: Not Given Glycopyrrolate (Glycopyrrolate) 0.4 mg IVPUSH ONETIME ONE Stop: 02/23/18 10:01 Last Admin: 02/23/18 10:30 Dose: 0.4 mg Glycopyrrolate (Robinul) Confirm Administered Dose 1 mg .ROUTE .STK-MED ONE Stop: 02/23/18 11:42 Hydromorphone HCl (Dilaudid Ironer Hand 15 Mg In Ns 30 Ml) 0 mg IV ASDIRECTED PRN; Protocol PRN Reason: Pain Last Admin: 02/23/18 14:08 Dose: 0.3 mg Hydroxyzine HCl (Vistaril) 100 mg IM ONETIME ONE Stop: 02/23/18 14:22 Last Admin: 02/23/18 14:29 Dose: 100 mg Dextrose/Lactated Ringer's (Dextrose 5%-Lactated Ringers) 1,000 mls @ 100 mls/ hr IV ASDIRECTED [facility] Last Admin: 02/23/18 09:20 Dose: 100 mls/hr Ketamine HCl 100 mg/ Sodium (Chloride) 100 mls @ 18.48 mls/hr IV ASDIRECTED [facility] Lidocaine HCl/Dextrose (Lidocaine 2 Gm/D5w 500 Ml) 2 gm in 500 mls @ 22.5 mls/ hr IV .[id number] [facility] Stop: 02/24/18 11:13 Last Admin: 02/23/18 15:14 Dose: 1.5 mg/min, 22.5 mls/hr Lactated Ringer's (Ringers, Lactated) Confirm Administered Dose 1,000 mls @ as directed .ROUTE .STK-MED ONE Stop: 02/23/18 13:42 Dextrose/Lactated Ringer's (Dextrose 5%-Lactated Ringers) 1,000 mls @ 175 mls/ hr IV ASDIRECTED [facility] Last Admin: 02/24/18 07:57 Dose: 175 mls/hr Meropenem 500 mg/ Sodium (Chloride) 50 mls @ 100 mls/hr IV Q6H [facility] Stop: 02/25/18 12:29 Last Admin: 02/25/18 12:41 Dose: 100 mls/hr Dextrose/Lactated Ringer's (Dextrose 5%-Lactated Ringers) 1,000 mls @ 100 mls/ hr IV ASDIRECTED [facility] Potassium Phosphate 20 mmole/ (Sodium Chloride) 256.6667 mls @ 85 mls/hr IV Q3H [facility] Stop: 02/24/18 18:59 Last Admin: 02/24/18 16:55 Dose: 85 mls/hr Lactated Ringer's (Ringers, Lactated) 500 mls @ 500 mls/hr IV .BOLUS [facility] Last Admin: 02/24/18 16:55 Dose: 500 mls/hr Lactated Ringer's (Ringers, Lactated) 500 mls @ 500 mls/hr IV BOLUS ONE Stop: 02/24/18 20:16 Last Admin: 02/24/18 19:36 Dose: 500 mls/hr Potassium Chloride 20 meq/Lidocaine HCl 2 ml/ Sodium Chloride 112 mls @ 56 mls/ hr IV Q2H [facility] Stop: 02/25/18 14:59 Last Admin: 02/25/18 14:36 Dose: 56 mls/hr Iohexol (Omnipaque-300) 50 ml PO .ASDIRECTED [facility] Stop: 02/24/18 03:35 Last Admin: 02/24/18 03:46 Dose: 50 ml Ketamine HCl (Ketalar) 31 mg IV ASDIRECTED [facility] Labetalol HCl (Normodyne) Confirm Administered Dose 20 mg .ROUTE .STK-MED ONE Stop: 02/23/18 13:42 Lidocaine HCl (Xylocaine 2%) 112 mg IVPUSH ONETIME ONE Stop: 02/23/18 13:01 Last Admin: 02/23/18 15:54 Dose: Not Given Meropenem (Merrem) Confirm Administered Dose 1,000 mg .ROUTE .STK-MED ONE Stop: 02/23/18 11:54 Last Admin: 02/23/18 12:42 Dose: 500 mg Midazolam HCl (Versed 1 Mg/Ml) Confirm Administered Dose 2 mg .ROUTE .STK-MED ONE Stop: 02/23/18 10:38 Miscellaneous Information (Remove Patch) 1 ea TRDERM ONETIME ONE Stop: 02/25/18 10:01 Last Admin: 02/25/18 10:07 Dose: Not Given Morphine Sulfate (Morphine) 2 mg IVPUSH ONETIME ONE Stop: 02/23/18 09:32 Last Admin: 02/23/18 09:48 Dose: 2 mg Neostigmine Methylsulfate (Neostigmine) Confirm Administered Dose 5 mg .ROUTE .STK-MED ONE Stop: 02/23/18 11:42 Scopolamine Patch (Check) 1 each TOP DAILY [facility] Stop: 02/25/18 16:01 Last Admin: 02/25/18 08:21 Dose: Not Given Ondansetron HCl (Zofran) Confirm Administered Dose 4 mg .ROUTE .STK-MED ONE Stop: 02/23/18 11:42 Propofol (Diprivan 20 Ml) Confirm Administered Dose 200 mg .ROUTE .STK-MED ONE Stop: 02/23/18 11:14 Propofol (Diprivan 20 Ml) Confirm Administered Dose 200 mg .ROUTE .STK-MED ONE Stop: 02/23/18 11:35 Propofol (Diprivan 20 Ml) Confirm Administered Dose 400 mg .ROUTE .STK-MED ONE Stop: 02/23/18 11:35 Propofol (Diprivan 20 Ml) Confirm Administered Dose 200 mg .ROUTE .STK-MED ONE Stop: 02/23/18 11:42 Rocuronium [place] (Zemuron) Confirm Administered Dose 50 mg .ROUTE .STK-MED ONE Stop: 02/23/18 11:42 Scopolamine (Transderm-Scop) 1.5 mg TOP Q72H [facility] Stop: 02/25/18 10:00 Last Admin: 02/23/18 16:56 Dose: 1.5 mg Succinylcholine Chloride (Quelicin) Confirm Administered Dose 200 mg .ROUTE .STK -MED ONE Stop: 02/23/18 11:42 - Exam General: Alert, Oriented, Cooperative, No Acute Distress, Lethargic HEENT: Pupils Equal, Mucous Membr. Moist/[place] Neck: Supple Lungs: Clear to Auscultation, Normal Respiratory Effort Cardiovascular: Regular Rate, Regular Rhythm Extremities: Normal Range of Motion Skin: Warm, Dry, Intact, Other (Edema from yesterday has improved since Furosemide treatment. ) Neurological: No New Focal Deficit Psy/Mental Status: Alert, Normal Affect, Normal Mood - Problem List Review Problem List Initiated/Reviewed/Updated: Yes - Assessment Assessment:: Status post open esophageal stent removal and revision of RNY. - Plan Plan:: 1. Step two diet without solids or cereal 2. Discontinue SALES SERVICE REP 3. Start oral Dilaudad 2-4mg PO Q4H 4. Start Lasix 20mg IV push 5. Encourage to get up and ambulating 6 times a day 6. Discontinue Lao catheter 7. CBC/CMP/Phosphorus in am 4:00 8. Replace Lao at 21:30 if patient has not voided 9. Reevaluate prn or in am
[2018-02-26] MEDS ORDERED: Furosemide 20 MG/2 ML VIAL IVPUSH ONE (08:30)
[2018-02-26] MEDS: Heparin Sodium 5,000 Units/ML Vial SUBCUT SCH ×2 (08:36→19:31)
[2018-02-26] MEDS: Albumin 25% 50 ML IV SCH ×4 (08:37→15:57)
--- NOTE | 2018-02-26 08:47 | OR ---
DATE OF PROCEDURE: 02/23/2018 ADDENDUM: 1. Migrated endoscopic stent with inability to remove the stent endoscopically. 2. Recent history of recurrent stricturing and perforation at gastrojejunostomy. OPERATIVE PROCEDURES: 1. Upper GI endoscopy. 2. Exploratory laparotomy with: a. Removal of stent from small bowel, (95707). b. Proximal gastric resection with Tha-en-Y gastrojejunostomy, (32613). c. Placement of Interceed mesh to limit adhesion formation between pelvic and abdominal avilez to underlying viscera, (35746). ANESTHESIA: General. FISCAL SERVICES DIRECTOR: PAS. Saeid INDICATIONS FOR PROCEDURE: This is a 37-year-old status post endoscopic stent placement to provide a platform for healing of her gastrojejunostomy, the latter of which had 2 episodes of perforation following dilation of strictures. Over the last several days, she has had increasing discomfort in the epigastrium. A CT scan obtained on Thursday, i.e. 48 hours ago in [place], showed the stent had migrated somewhat distally but still appeared to be overlapping the area of the gastrojejunostomy. The patient is developing increasing symptoms of epigastric discomfort and nausea. The plan is to proceed with upper GI endoscopy with removal of the stent. Potential risks, including bleeding and perforation, were discussed, and the patient wishes to proceed. DETAILS OF PROCEDURE: The patient was taken to the operating room and placed in a left lateral decubitus position. IV sedation was administered, after which the upper GI endoscope was passed orally through the length of the esophagus and into the area of the gastric pouch and gastrojejunostomy. The patient had, at this point, only minimal stricture present at the gastrojejunostomy with the scope easily being passed across the anastomosis. The stent, however, was absent in this area. The scope was then passed further distally, roughly 30 cm beyond the gastrojejunostomy, at which point, the stent was identified. Over a period of time, multiple efforts were made to remove the stent. We attempted maneuvers, including grasping of the wire attached to the pursestring apparatus proximally, as well as both the anterior and posterior avilez of the stent in trying to pull that upward. This did result in the stent being able to be pulled up to the level of the gastrojejunostomy. An additional maneuver, that of turning the stent inside-out by grasping the more distal of the pursestring-type wires, was also initiated, which did not result in a significant closure of the stent. After multiple episodes, the decision was made to proceed with a laparotomy with removal of the stent. Given this patient's history, we would resect the area of the gastrojejunostomy and re-construct a new Tha-en-Y anastomosis to the more proximal stomach. The patient, at this point, was sedated. As discussed with the patient preoperatively, if intraoperative issues develop, we would consult her brother who was present, and he did give an informed consent for the latter procedure. Following this, general endotracheal anesthetic was induced, a Lao catheter was inserted, and the abdomen was prepped and draped. An upper midline incision was made from the xiphoid to roughly a handsbreadth above the umbilicus and carried down through the full-thickness of the abdominal wall. Upon entering the peritoneal cavity, no free air was identified. The patient was noted to have the stent located in the Tha limb just proximal to the gastrojejunostomy. Otherwise, there was some edema in the small bowel involved in the migration of the stent, i.e. within the Tha limb, but there were no areas of perforation or obvious submucosal hemorrhage, so it would appear that the injury to the extent present would be limited to the mucosa of the small bowel. A small enterotomy was then made in the Tha limb immediately distal to the gastrojejunostomy, allowing removal of the stent at that level. The small bowel was divided at that level with the CORINNE stapler. The gastric pouch was then encircled at a point somewhat superior to the gastrojejunostomy. That portion of the stomach was then resected with 2 firings of the CORINNE black loads. That proximal stomach along with the adjacent gastrojejunostomy were then delivered from the field, after division of some underlying mesenteric attachments with mesenteric CORINNE loads. The Tha limb was then brought up to the area of the new gastric staple line. This came up with zero tension. An anvil of 21-mm EEA stapler was then attached to the [place] sump type tube. The latter was brought down through the mouth and taken out through a small opening in the new gastric staple line, allowing the anvil likewise to be pulled down within the gastric pouch. A small opening in the Tha limb was then made, and the main body EEA stapler was passed a few centimeters into the Tha limb, brought up the anvil and united with it, thus creating the gastrojejunostomy. Upon removal of the stapler, double donuts of mucosa were noted within it. Small bowel was closed off with a vascular staple line. Gastrojejunostomy was then reinforced with some 3-0 Vicryl seromuscular stitch, along with fibrin sealant. The omentum in the area was then wrapped somewhat posteriorly on the left side and then somewhat anterior to the gastrojejunostomy as well. At this point, the abdomen was irrigated with antibiotic-containing saline solution. No further problems were noted. At this point, a [place] drain was taken through a stab wound in the left subcostal area, positioned adjacent to the new gastrojejunostomy and, from there, up into the splenic fossa. The patient had no omentum to displace the small bowel from the area of the incision in the lower aspect of the abdomen. Given this, an Interceed mesh was placed across those areas and from there into the upper pelvis, to limit adhesion formation to those surfaces and the underlying small bowel. The midline fascia was then approximated with a #2 Vicryl stitch, the subcutaneous tissue with 2 layers of 3-0 Vicryl stitch, and the skin with vale. A 10-[place]ian Ky-Saba drain was placed through a stab wound inferior to the main incision and draped across the base of the subcutaneous tissue plane and sutured there with 4-0 Vicryl stitch. [place] were used for the skin. The patient was taken to the recovery room in a satisfactory condition. There were no evident complications. Spencer Pagan MD Job #: [id number]
[2018-02-26] MEDS: Escitalopram 10 MG Tab PO SCH (09:14)
[2018-02-26] MEDS: HYDROmorphone 2 MG Tab PO PRN ×3 (09:28→21:27)
[2018-02-26] MEDS: Metoclopramide 10 MG/2 ML SDV IVPUSH PRN (09:42)
[2018-02-26] MEDS: Scopolamine 1.5 MG Transdermal Patch TRDERM SCH (09:44)
[2018-02-26] MEDS: Dextrose 5%-Lactated Ringers 1,000 ML IV SCH ×2 (10:52→20:54)
[2018-02-26] MEDS: Pantoprazole 40 MG Vial IVPUSH SCH (15:56)
[2018-02-27] MEDS: Metoclopramide 10 MG/2 ML SDV IVPUSH PRN ×3 (00:58→22:26)
[2018-02-27] MEDS: Magnesium Sulfate/Water 2 GM in Premix Bag 1 BAG IV SCH (03:44)
[2018-02-27] MEDS: Acetaminophen Soln 650 MG/20.3 ML UD Cup PO SCH ×5 (03:46→22:15)
[2018-02-27] MEDS: HYDROmorphone 2 MG Tab PO PRN ×5 (03:46→22:13)
[2018-02-27] MEDS ORDERED: Lidocaine 2% 60 ML, Alum Hydrox/Mag Hydrox/Simeth 360 ML PO PRN ×2 (07:07)
--- NOTE | 2018-02-27 07:46 | PN ---
DATE OF SERVICE: 02/27/2018 SUBJECTIVE: Montse's vital signs have been stable. She felt better yesterday and was up ambulating. Her SAMIR drains have put out 70 and 5 mils of a light pink serosanguineous drainage. Oral intake was 420. Hemoglobin was 9.3 this morning and potassium was 3.1. Reports having nausea and increase in abdominal pain with magnesium IV riders. She had her last one this morning. REVIEW OF SYSTEMS: Remainder of review of systems negative for any pertinent positives and negatives. OBJECTIVE: GENERAL: Montse Salazar is a 37-year-old female. Color is pale. VITAL SIGNS: TPR 97.7, 94, 16. Blood pressure 120/66. HEENT: Negative. NECK: Supple. HEART: Regular rate and rhythm. LUNGS: Clear. ABDOMEN: Aquacel dressing is on. SAMIR drains x2 intact, draining a pink serosanguineous drainage. EXTREMITIES: With no peripheral edema. SCDs are on. ASSESSMENT: 1. Upper GI endoscopy 02/23/2018. 2. Exploratory laparotomy with removal of stent from small bowel, revision of gastrojejunostomy and placement of Interceed mesh for migrated esophageal stent, unable to be removed endoscopically and recurrent stricturing and perforation of the gastrojejunostomy. Date of surgery 02/23/2018. Surgeon, Spencer Pagan MD. PLAN: 1. Rx KCl 60 mEq in 3 divided doses with lidocaine IV. 2. Check CBC, CMP, mag, and phos. 3. Maalox with lidocaine 1 to 2 tablespoons as directed p.r.n. pain. esophagus. 4. Good pulmonary toilet. 5. Continue to drink 3 med cups per hour and ambulate at least 6 times a day. 6. We will evaluate p.r.n. or in a.m. 7. Pharmacy consult. 8. Calcium today 7.6, albumin 2.6 and corrected calculation of calcium 8.7. Mandy Bob PA-C /[id number]
[2018-02-27] MEDS: Heparin Sodium 5,000 Units/ML Vial SUBCUT SCH ×2 (08:29→20:34)
[2018-02-27] MEDS: Albumin 25% 50 ML IV SCH ×4 (08:29→15:08)
[2018-02-27] MEDS: Escitalopram 10 MG Tab PO SCH (08:29)
[2018-02-27] MEDS: Potassium Chloride 20 MEQ, Lidocaine 1% 2 ML in Sodium Chloride 0.9% 100 ML IV SCH ×3 (10:37→15:09)
[2018-02-27] MEDS: Dextrose 5%-Lactated Ringers 1,000 ML IV SCH ×2 (10:37→18:30)
[2018-02-27] MEDS: Pantoprazole 40 MG Tab.CR PO SCH (17:01)
[2018-02-27] MEDS: Hyoscyamine 0.125 MG Tab.SL SL PRN (17:01)
[2018-02-27] MEDS: Ondansetron 4 MG/2 ML SDV IVPUSH PRN (20:40)
[2018-02-28] MEDS: HYDROmorphone 2 MG Tab PO PRN ×5 (03:22→22:37)
[2018-02-28] MEDS: Acetaminophen Soln 650 MG/20.3 ML UD Cup PO SCH ×4 (03:22→21:24)
[2018-02-28] MEDS: Ondansetron 4 MG/2 ML SDV IVPUSH PRN (03:36)
[2018-02-28] MEDS: Dextrose 5%-Lactated Ringers 1,000 ML IV SCH ×2 (04:15→14:30)
[2018-02-28] MEDS ORDERED: Sodium Chloride 0.9% 10 ML Syringe FLUSH PRN (07:24)
[2018-02-28] MEDS ORDERED: Iopamidol 612 MG/ML 150 ML Bottle IV SCH (07:30)
[2018-02-28] MEDS ORDERED: Sodium Chloride 0.9% 80 ML IV SCH (07:30)
--- NOTE | 2018-02-28 08:13 | PN ---
DATE OF SERVICE: 02/28/2018 SUBJECTIVE: Saira states that she feels in her abdomen like she did when she had the 2 perforations. She states that when she turns from [id number], she will feel a "rolling sensation." Pain is a 5 to an 8/10 using her DOWEL INSPECTOR. She has had 3 loose stools. Nausea continues to be her main problem. She had a total intake of 240, output was 1575. SAMIR drain put out 124. Potassium this morning is 3.3. When she showered yesterday, her midline SAMIR drain fell out. Vital signs have been stable. Temperature max of 98.9. REVIEW OF SYSTEMS: Remainder of review of systems negative for any pertinent positives and negatives. OBJECTIVE: GENERAL: Montse Salazar is a 37-year-old female who is in bed with the head of bed elevated. She looks better today. Color is improved, talkative. VITAL SIGNS: TPR is 97.9, 103, and 16. Blood pressure is 125/79. HEENT: Negative. NECK: Supple. HEART: Regular rate and rhythm. LUNGS: Clear. ABDOMEN: [place] intact. SAMIR drain is intact and was just emptied, so has a small amount of light red drainage in the tubing. Abdomen is soft, very minimally tender to palpation. Abdominal binder has been on. EXTREMITIES: Revealed trace peripheral edema. LABORATORY DATA: Labs today revealed WBC of 4.5; hemoglobin 8.6, down from 9.3 yesterday. Potassium is 3.3. ASSESSMENT: 1. Upper endoscopy, 02/23/2018. 2. Exploratory laparotomy with removal of stent from small bowel, revision of gastrojejunostomy and placement of Interceed mesh for migrated esophageal stent unable to be removed endoscopically and recurrent stricturing and perforation of the gastrojejunostomy. Date of surgery 02/23/2018. Surgeon, Spencer Pagan MD. PLAN: 1. Check CT of the abdomen and pelvis with IV contrast stat. 2. Magnesium 2 g IV q.6 hours x72 hours. 3. KCl 60 mEq IV in 3 divided doses. 4. Check CBC, CMP, and phos in the a.m. 5. Call with results of CT. 6. We will evaluate p.r.n. or in the a.m. Mandy Bob PA-C /[id number]
[2018-02-28] MEDS: Potassium Chloride 20 MEQ, Lidocaine 1% 2 ML in Sodium Chloride 0.9% 100 ML IV SCH ×3 (09:01→14:23)
[2018-02-28] MEDS: Ondansetron 4 MG Tab.DIS PO PRN ×2 (09:01→15:45)
[2018-02-28] MEDS: Escitalopram 10 MG Tab PO SCH (09:01)
[2018-02-28] MEDS: Magnesium Sulfate/Water 2 GM in Premix Bag 1 BAG IV SCH ×3 (09:01→19:54)
[2018-02-28] MEDS: Heparin Sodium 5,000 Units/ML Vial SUBCUT SCH (09:49)
[2018-02-28] MEDS: Pantoprazole 40 MG Tab.CR PO SCH (16:34)
[2018-02-28] MEDS: Metoclopramide 10 MG/2 ML SDV IVPUSH PRN (18:34)
[2018-02-28] MEDS: Hyoscyamine 0.125 MG Tab.SL SL PRN (21:28)
[2018-03-01] MEDS: Dextrose 5%-Lactated Ringers 1,000 ML IV SCH ×3 (01:43→20:42)
[2018-03-01] MEDS: Magnesium Sulfate/Water 2 GM in Premix Bag 1 BAG IV SCH ×4 (01:43→19:38)
[2018-03-01] MEDS: Acetaminophen Soln 650 MG/20.3 ML UD Cup PO SCH ×4 (03:24→21:09)
[2018-03-01] MEDS: HYDROmorphone 2 MG Tab PO PRN ×4 (03:25→19:00)
[2018-03-01] MEDS: Metoclopramide 10 MG/2 ML SDV IVPUSH PRN ×2 (04:53→19:39)
--- NOTE | 2018-03-01 06:57 | PCM.PN ---
- General Info Date of Service: 03/01/18 Admission Dx/Problem (Free Text): Stricture and stenosis of esophagus. Status post open stent removal and revision of RNY. Subjective Update: Montse is POD #5. Her vitals were stable over night with no major problems and slept throughout the night. She had some nausea early this am that was resolved with a dose of Reglan. The pain is currently control on current regimen. She had been NPO since mid day yesterday due to abdominal pain and has not had any problems. CT demonstrated post operative inflammation and we are going to start back on a full liquid without solids today and reevalute. Patient is up, ambulating and urinating. Overall demeanor from Thursday has improved and patient is more energetic. Functional Status: Reports: Pain Controlled, Tolerating Diet, Ambulating - Review of Systems General: Reports: No Symptoms HEENT: Reports: No Symptoms Pulmonary: Reports: No Symptoms Cardiovascular: Reports: No Symptoms Gastrointestinal: Reports: No Symptoms Genitourinary: Reports: No Symptoms Musculoskeletal: Reports: No Symptoms Skin: Reports: No Symptoms Neurological: Reports: No Symptoms Psychiatric: Reports: No Symptoms Systems Review Comment:: Remainder of ROS is negative for any pertinent negatives and positives. - Patient Data Vitals - Most Recent: Last Vital Signs Temp 97.8 F 03/01/18 03:20 Pulse 95 03/01/18 03:20 Resp 16 03/01/18 03:20 BP 126/78 03/01/18 03:20 Pulse Ox 91 L 03/01/18 03:20 Weight - Most Recent: 208 lb 3.202 oz I&O - Last 24 Hours: Intake & Output 02/28/18 02/28/18 03/01/18 14:59 22:59 06:59 Intake Total 400 1055 1038 Output Total 402 084 2535 Balance 60 375 -477 Lab Results Last 24 Hours: Laboratory Results - last 24 hr 03/01/18 03/01/18 Range/Units 05:17 05:17 WBC 5.7 (4.5-11.0) K/uL RBC 3.57 (3.30-5.50) M/uL Hgb 9.4 L (12.0-15.0) g/dL Hct 30.0 L (36.0-48.0) % MCV 84 (80-98) fL MCH 26 L (27-31) pg MCHC 31 L (32-36) % Plt Count 271 (150-400) K/uL Sodium 139 L (140-148) mmol/L Potassium 3.9 (3.6-5.2) mmol/L Chloride 105 (100-108) mmol/L Carbon Dioxide 28 (21-32) mmol/L Anion Gap 9.9 (5.0-14.0) mmol/L BUN 2 L (7-18) mg/dL Creatinine 0.4 L (0.6-1.0) mg/dL Est Cr Clr Drug Dosing 190.39 mL/min Estimated GFR (MDRD) > 60 (>60) Glucose 102 (74-106) mg/dL Calcium 8.1 L (8.5-10.1) mg/dL Phosphorus 2.9 (2.5-4.9) mg/dL Total Bilirubin 0.4 (0.2-1.0) mg/dL AST 29 (15-37) U/L ALT 22 (12-78) U/L Alkaline Phosphatase 116 (46-116) U/L Total Protein 5.2 L (6.4-8.2) g/dL Albumin 2.6 L (3.4-5.0) g/dL Globulin 2.6 (2.3-3.5) g/dL Albumin/Globulin Ratio 1.0 L (1.2-2.2) Med Orders - Current: Current Medications Acetaminophen (Tylenol) 650 mg PO Q6H [facility] Last Admin: 03/01/18 03:24 Dose: Not Given Lidocaine HCl 60 ml/ Al (Hydroxide/Mg Hydroxide 360 ml) 0 ml PO 6XDAY PRN PRN Reason: pain when swallowing Last Admin: 02/27/18 08:28 Dose: 15 ml Diphenhydramine HCl (Benadryl) 25 - 50 mg IVPUSH Q4H PRN PRN Reason: ITCHING Last Admin: 02/24/18 09:34 Dose: 0.1 mg Escitalopram Oxalate (Lexapro) 10 mg PO DAILY [facility] Last Admin: 02/28/18 09:01 Dose: 10 mg Hydromorphone HCl (Dilaudid) 2 - 4 mg PO Q4H PRN PRN Reason: Pain Last Admin: 03/01/18 03:25 Dose: 4 mg Hydroxyzine HCl (Vistaril) 75 - 100 mg IM Q4H PRN PRN Reason: pain Last Admin: 02/25/18 18:20 Dose: 100 mg Hyoscyamine (Hyomax-Sl) 0.125 mg SL Q4H PRN PRN Reason: esophageal spasms Last Admin: 02/28/18 21:28 Dose: 0.125 mg Dextrose/Lactated Ringer's (Dextrose 5%-Lactated Ringers) 1,000 mls @ 100 mls/ hr IV ASDIRECTED [facility] Last Admin: 03/01/18 01:43 Dose: 100 mls/hr Lactated Ringer's (Ringers, Lactated) 1,000 mls @ 166 mls/hr IV ASDIRECTED [facility] Last Admin: 02/25/18 08:24 Dose: 166 mls/hr Magnesium Sulfate 2 gm/ Premix 50 mls @ 25 mls/hr IV Q6H [facility] Stop: 03/03/18 03:59 Last Admin: 03/01/18 01:43 Dose: 25 mls/hr Labetalol HCl (Normodyne) 5 - 15 mg IVPUSH Q1H PRN PRN Reason: SBP over 160 OR DBP over 95 Metoclopramide HCl (Reglan) 10 mg IVPUSH Q6H PRN PRN Reason: NAUSEA NOT CONTROL BY ZOFRAN Last Admin: 03/01/18 04:53 Dose: 10 mg Ondansetron HCl (Zofran) 4 mg IVPUSH Q4H PRN PRN Reason: Nausea/Vomiting Last Admin: 02/28/18 03:36 Dose: 4 mg Ondansetron HCl (Zofran Odt) 4 mg PO Q4H PRN PRN Reason: Nausea/Vomiting Last Admin: 02/28/18 15:45 Dose: 4 mg Pantoprazole Sodium (Protonix) 40 mg PO Q24H [facility] Last Admin: 02/28/18 16:34 Dose: 40 mg Scopolamine (Transderm-Scop) 1.5 mg TRDERM Q72H [facility] Last Admin: 02/26/18 09:44 Dose: 1.5 mg Trazodone HCl (Trazodone) 50 mg PO BEDTIME PRN PRN Reason: Sleep Discontinued Medications Ropivacaine 47 ml/Dexamethasone 8 mg/Epinephrine HCl 0.4 mg/ Sodium Chloride 30.6 ml 0 ml NERVRT ASDIRECTED [facility] Last Admin: 02/23/18 13:20 Dose: 80 syringe Cyanocobalamin (Vitamin B12) 1,000 mcg IM ONETIME ONE Stop: 02/25/18 09:01 Last Admin: 02/25/18 08:22 Dose: 1,000 mcg Dexamethasone (Dexamethasone) Confirm Administered Dose 4 mg .ROUTE .STK-MED ONE Stop: 02/23/18 11:42 Fentanyl (Sublimaze) Confirm Administered Dose 100 mcg .ROUTE .STK-MED ONE Stop: 02/23/18 10:29 Fentanyl (Sublimaze) Confirm Administered Dose 250 mcg .ROUTE .STK-MED ONE Stop: 02/23/18 13:42 Fentanyl (Sublimaze) 100 mcg IVPUSH ONETIME ONE Stop: 02/23/18 14:22 Last Admin: 02/23/18 14:29 Dose: 100 mcg Furosemide (Lasix) 20 mg IVPUSH ONETIME ONE Stop: 02/25/18 08:01 Last Admin: 02/25/18 08:22 Dose: 20 mg Furosemide (Lasix) 20 mg IVPUSH ONETIME ONE Stop: 02/26/18 08:31 Last Admin: 02/26/18 08:37 Dose: 20 mg Gabapentin (Neurontin) 300 mg PO TID [facility] Last Admin: 02/24/18 15:04 Dose: Not Given Glycopyrrolate (Glycopyrrolate) 0.4 mg IVPUSH ONETIME ONE Stop: 02/23/18 10:01 Last Admin: 02/23/18 10:30 Dose: 0.4 mg Glycopyrrolate (Robinul) Confirm Administered Dose 1 mg .ROUTE .STK-MED ONE Stop: 02/23/18 11:42 Heparin Sodium (Porcine) (Heparin Sodium) 5,000 units SUBCUT Q12H [facility] Last Admin: 02/28/18 09:49 Dose: Not Given Hydromorphone HCl (Dilaudid Sweatband Separator 15 Mg In Ns 30 Ml) 0 mg IV ASDIRECTED PRN; Protocol PRN Reason: Pain Last Admin: 02/23/18 14:08 Dose: 0.3 mg Hydroxyzine HCl (Vistaril) 100 mg IM ONETIME ONE Stop: 02/23/18 14:22 Last Admin: 02/23/18 14:29 Dose: 100 mg Dextrose/Lactated Ringer's (Dextrose 5%-Lactated Ringers) 1,000 mls @ 100 mls/ hr IV ASDIRECTED [facility] Last Admin: 02/23/18 09:20 Dose: 100 mls/hr Ketamine HCl 100 mg/ Sodium (Chloride) 100 mls @ 18.48 mls/hr IV ASDIRECTED [facility] Lidocaine HCl/Dextrose (Lidocaine 2 Gm/D5w 500 Ml) 2 gm in 500 mls @ 22.5 mls/ hr IV .[id number] [facility] Stop: 02/24/18 11:13 Last Admin: 02/23/18 15:14 Dose: 1.5 mg/min, 22.5 mls/hr Lactated Ringer's (Ringers, Lactated) Confirm Administered Dose 1,000 mls @ as directed .ROUTE .STK-MED ONE Stop: 02/23/18 13:42 Dextrose/Lactated Ringer's (Dextrose 5%-Lactated Ringers) 1,000 mls @ 175 mls/ hr IV ASDIRECTED [facility] Last Admin: 02/24/18 07:57 Dose: 175 mls/hr Meropenem 500 mg/ Sodium (Chloride) 50 mls @ 100 mls/hr IV Q6H [facility] Stop: 02/25/18 12:29 Last Admin: 02/25/18 12:41 Dose: 100 mls/hr Dextrose/Lactated Ringer's (Dextrose 5%-Lactated Ringers) 1,000 mls @ 100 mls/ hr IV ASDIRECTED [facility] Magnesium Sulfate 2 gm/ Premix 50 mls @ 25 mls/hr IV Q6H [facility] Stop: 02/27/18 05:59 Last Admin: 02/27/18 03:44 Dose: 25 mls/hr Potassium Phosphate 20 mmole/ (Sodium Chloride) 256.6667 mls @ 85 mls/hr IV Q3H [facility] Stop: 02/24/18 18:59 Last Admin: 02/24/18 16:55 Dose: 85 mls/hr Lactated Ringer's (Ringers, Lactated) 500 mls @ 500 mls/hr IV .BOLUS [facility] Last Admin: 02/24/18 16:55 Dose: 500 mls/hr Lactated Ringer's (Ringers, Lactated) 500 mls @ 500 mls/hr IV BOLUS ONE Stop: 02/24/18 20:16 Last Admin: 02/24/18 19:36 Dose: 500 mls/hr Potassium Chloride 20 meq/Lidocaine HCl 2 ml/ Sodium Chloride 112 mls @ 56 mls/ hr IV Q2H [facility] Stop: 02/25/18 14:59 Last Admin: 02/25/18 14:36 Dose: 56 mls/hr Albumin Human (Flexbumin 25%) 50 mls @ 25 mls/hr IV DAILY [facility] Stop: 02/27/18 10:59 Last Admin: 02/27/18 08:29 Dose: 25 mls/hr Albumin Human (Flexbumin 25%) 50 mls @ 25 mls/hr IV Q24H [facility] Stop: 02/27/18 12:59 Last Admin: 02/27/18 10:38 Dose: 25 mls/hr Albumin Human (Flexbumin 25%) 50 mls @ 25 mls/hr IV Q24H [facility] Stop: 02/27/18 14:59 Last Admin: 02/27/18 14:33 Dose: 25 mls/hr Albumin Human (Flexbumin 25%) 50 mls @ 25 mls/hr IV Q24H [facility] Stop: 02/27/18 16:59 Last Admin: 02/27/18 15:08 Dose: 25 mls/hr Potassium Chloride 20 meq/Lidocaine HCl 2 ml/ Sodium Chloride 112 mls @ 56 mls/ hr IV Q2H [facility] Stop: 02/27/18 14:59 Last Admin: 02/27/18 15:09 Dose: 56 mls/hr Sodium Chloride (Normal Saline) 80 mls @ 3 mls/sec IV ASDIRECTED [facility] Stop: 02/28/18 08:30 Last Admin: 02/28/18 07:49 Dose: 3 mls/sec Potassium Chloride 20 meq/Lidocaine HCl 2 ml/ Sodium Chloride 112 mls @ 56 mls/ hr IV Q2H [facility] Stop: 02/28/18 15:59 Last Admin: 02/28/18 14:23 Dose: 56 mls/hr Iohexol (Omnipaque-300) 50 ml PO .ASDIRECTED [facility] Stop: 02/24/18 03:35 Last Admin: 02/24/18 03:46 Dose: 50 ml Iopamidol (Isovue-300 (61%)) 141 ml IV . DIRECTED [facility] Stop: 02/28/18 08:30 Last Admin: 02/28/18 07:49 Dose: 141 ml Ketamine HCl (Ketalar) 31 mg IV ASDIRECTED [facility] Labetalol HCl (Normodyne) Confirm Administered Dose 20 mg .ROUTE .STK-MED ONE Stop: 02/23/18 13:42 Lidocaine HCl (Xylocaine 2%) 112 mg IVPUSH ONETIME ONE Stop: 02/23/18 13:01 Last Admin: 02/23/18 15:54 Dose: Not Given Meropenem (Merrem) Confirm Administered Dose 1,000 mg .ROUTE .STK-MED ONE Stop: 02/23/18 11:54 Last Admin: 02/23/18 12:42 Dose: 500 mg Midazolam HCl (Versed 1 Mg/Ml) Confirm Administered Dose 2 mg .ROUTE .STK-MED ONE Stop: 02/23/18 10:38 Miscellaneous Information (Remove Patch) 1 ea TRDERM ONETIME ONE Stop: 02/25/18 10:01 Last Admin: 02/25/18 10:07 Dose: Not Given Morphine Sulfate (Morphine) 2 mg IVPUSH ONETIME ONE Stop: 02/23/18 09:32 Last Admin: 02/23/18 09:48 Dose: 2 mg Morphine Sulfate (Morphine Sweatband Separator 150 Mg In 30 Ml) 0 mg IV ASDIRECTED PRN; Protocol PRN Reason: PAIN Last Admin: 02/24/18 07:51 Dose: 150 mg Naloxone HCl (Narcan) 0.1 mg IV ASDIRECTED PRN PRN Reason: decreased respiratory rate Naloxone HCl (Narcan) 0.1 mg IV ASDIRECTED PRN PRN Reason: RESP Neostigmine Methylsulfate (Neostigmine) Confirm Administered Dose 5 mg .ROUTE .STK-MED ONE Stop: 02/23/18 11:42 Scopolamine Patch (Check) 1 each TOP DAILY [facility] Stop: 02/25/18 16:01 Last Admin: 02/25/18 08:21 Dose: Not Given Ondansetron HCl (Zofran) Confirm Administered Dose 4 mg .ROUTE .STK-MED ONE Stop: 02/23/18 11:42 Pantoprazole Sodium (Protonix Iv) 40 mg IVPUSH Q24H [facility] Last Admin: 02/26/18 15:56 Dose: 40 mg Propofol (Diprivan 20 Ml) Confirm Administered Dose 200 mg .ROUTE .STK-MED ONE Stop: 02/23/18 11:14 Propofol (Diprivan 20 Ml) Confirm Administered Dose 200 mg .ROUTE .STK-MED ONE Stop: 02/23/18 11:35 Propofol (Diprivan 20 Ml) Confirm Administered Dose 400 mg .ROUTE .STK-MED ONE Stop: 02/23/18 11:35 Propofol (Diprivan 20 Ml) Confirm Administered Dose 200 mg .ROUTE .STK-MED ONE Stop: 02/23/18 11:42 Rocuronium [place] (Zemuron) Confirm Administered Dose 50 mg .ROUTE .STK-MED ONE Stop: 02/23/18 11:42 Scopolamine (Transderm-Scop) 1.5 mg TOP Q72H [facility] Stop: 02/25/18 10:00 Last Admin: 02/23/18 16:56 Dose: 1.5 mg Sodium Chloride (Saline Flush) 10 ml FLUSH ASDIRECTED PRN PRN Reason: Keep Vein Open Stop: 02/28/18 08:30 Last Admin: 02/28/18 07:49 Dose: 10 ml Succinylcholine Chloride (Quelicin) Confirm Administered Dose 200 mg .ROUTE .STK -MED ONE Stop: 02/23/18 11:42 - Exam General: Alert, Oriented, Cooperative, No Acute Distress HEENT: Pupils Equal, Mucous Membr. Moist/[place] Neck: Supple Lungs: Clear to Auscultation, Normal Respiratory Effort Cardiovascular: Regular Rate, Regular Rhythm GI/Abdominal Exam: Normal Bowel Sounds, Soft, Non-Tender Extremities: Normal Range of Motion Skin: Warm, Dry, Intact Wound/Incisions: Healing Well, Dressing Dry and Intact, Drainage (Serosangunous ) Neurological: No New Focal Deficit Psy/Mental Status: Alert, Normal Affect, Normal Mood - Problem List Review Problem List Initiated/Reviewed/Updated: Yes - Assessment Assessment:: Status post open esophageal stent removal and revision of RNY. - Plan Plan:: 1. Begin step two diet without solids or cereal 2. Discontinue NPO 3. Magnesium Sulfate 2gm pre mix bag 1 bad IV q6h 4. Discontinue scheduled metroclopramide 10mg IV push q6h 5. Start metroclopramide 10mg IV push prn for nausea 6. Reevaluat prn or in am
[2018-03-01] MEDS: Ondansetron 4 MG Tab.DIS PO PRN (08:36)
[2018-03-01] MEDS: Escitalopram 10 MG Tab PO SCH (09:31)
[2018-03-01] MEDS: Scopolamine 1.5 MG Transdermal Patch TRDERM SCH (09:32)
[2018-03-01] MEDS: Pantoprazole 40 MG Tab.CR PO SCH (16:13)
[2018-03-01] MEDS: Hyoscyamine 0.125 MG Tab.SL SL PRN (19:38)
[2018-03-02] MEDS: HYDROmorphone 2 MG Tab PO PRN ×5 (00:02→19:26)
[2018-03-02] MEDS: Magnesium Sulfate/Water 2 GM in Premix Bag 1 BAG IV SCH ×4 (02:45→19:20)
[2018-03-02] MEDS: Metoclopramide 10 MG/2 ML SDV IVPUSH PRN (02:51)
[2018-03-02] MEDS: Acetaminophen Soln 650 MG/20.3 ML UD Cup PO SCH (03:50)
[2018-03-02] MEDS: Dextrose 5%-Lactated Ringers 1,000 ML IV SCH ×2 (06:02→16:03)
[2018-03-02] MEDS ORDERED: Metoclopramide 10 MG Tab PO PRN (07:46)
[2018-03-02] MEDS ORDERED: Acetaminophen Soln 650 MG/20.3 ML UD Cup PO PRN (07:49)
[2018-03-02] MEDS: SCOPOLAMINE PATCH CHECK TOP SCH (09:12)
[2018-03-02] MEDS: Escitalopram 10 MG Tab PO SCH (09:12)
[2018-03-02] MEDS ORDERED: Scopolamine 1.5 MG Transdermal Patch TRDERM SCH (09:15)
--- NOTE | 2018-03-02 11:49 | PCM.PN ---
- General Info Date of Service: 03/02/18 Admission Dx/Problem (Free Text): Stricture and stenosis of esophagus. Status post open stent removal and revision of RNY. Subjective Update: Montse is POD #7. Her vitals were stable over night with no major problems and slept throughout the night. Pain is currently control on current regimen and she is taking her pain medications as scheduled. She has also been experiencing nausea when she is not on the scheduled Reglan. She is tolerating full liquid diet since being place on it yesterday. Patient is up, ambulating and urinating. Overall demeanor from Thursday has improved and patient is more energetic. Patient is excited about possible discharge tomorrow and asked if her drain could be removed this am. Try to encourage fluids over the next day to improve intake. Functional Status: Reports: Pain Controlled, Tolerating Diet, Ambulating, Urinating, Incentive Spirometry - Review of Systems General: Reports: No Symptoms HEENT: Reports: No Symptoms Pulmonary: Reports: No Symptoms Cardiovascular: Reports: No Symptoms Gastrointestinal: Reports: No Symptoms Genitourinary: Reports: No Symptoms Musculoskeletal: Reports: No Symptoms Skin: Reports: No Symptoms Neurological: Reports: No Symptoms Psychiatric: Reports: No Symptoms Systems Review Comment:: Remainder of ROS is negative for any pertinent positives or negatives. - Patient Data Vitals - Most Recent: Last Vital Signs Temp 96.6 F 03/02/18 11:00 Pulse 88 03/02/18 11:00 Resp 16 03/02/18 11:00 BP 135/76 03/02/18 11:00 Pulse Ox 95 03/02/18 11:00 Weight - Most Recent: 208 lb 3.202 oz I&O - Last 24 Hours: Intake & Output 03/01/18 03/02/18 03/02/18 22:59 06:59 14:59 Intake Total 1362 1533 290 Output Total 20 30 Balance 1342 1503 290 Lab Results Last 24 Hours: Laboratory Results - last 24 hr 03/02/18 03/02/18 Range/Units 04:20 04:20 WBC 5.5 (4.5-11.0) K/uL RBC 3.68 (3.30-5.50) M/uL Hgb 9.4 L (12.0-15.0) g/dL Hct 30.9 L (36.0-48.0) % MCV 84 (80-98) fL MCH 26 L (27-31) pg MCHC 30 L (32-36) % Plt Count 290 (150-400) K/uL Sodium 140 (140-148) mmol/L Potassium 4.0 (3.6-5.2) mmol/L Chloride 105 (100-108) mmol/L Carbon Dioxide 29 (21-32) mmol/L Anion Gap 6.1 (5.0-14.0) mmol/L BUN 2 L (7-18) mg/dL Creatinine 0.4 L (0.6-1.0) mg/dL Est Cr Clr Drug Dosing 190.39 mL/min Estimated GFR (MDRD) > 60 (>60) Glucose 104 (74-106) mg/dL Calcium 8.0 L (8.5-10.1) mg/dL Phosphorus 3.5 (2.5-4.9) mg/dL Total Bilirubin 0.4 (0.2-1.0) mg/dL AST 37 (15-37) U/L ALT 23 (12-78) U/L Alkaline Phosphatase 120 H (46-116) U/L Total Protein 5.0 L (6.4-8.2) g/dL Albumin 2.4 L (3.4-5.0) g/dL Globulin 2.6 (2.3-3.5) g/dL Albumin/Globulin Ratio 0.9 L (1.2-2.2) Med Orders - Current: Current Medications Acetaminophen (Tylenol) 650 mg PO Q6H PRN PRN Reason: Pain Lidocaine HCl 60 ml/ Al (Hydroxide/Mg Hydroxide 360 ml) 0 ml PO 6XDAY PRN PRN Reason: pain when swallowing Last Admin: 02/27/18 08:28 Dose: 15 ml Diphenhydramine HCl (Benadryl) 25 - 50 mg IVPUSH Q4H PRN PRN Reason: ITCHING Last Admin: 02/24/18 09:34 Dose: 0.1 mg Escitalopram Oxalate (Lexapro) 10 mg PO DAILY BOBBY Last Admin: 03/02/18 09:12 Dose: 10 mg Hydromorphone HCl (Dilaudid) 2 - 4 mg PO Q4H PRN PRN Reason: Pain Last Admin: 03/02/18 09:13 Dose: 4 mg Hydroxyzine HCl (Vistaril) 75 - 100 mg IM Q4H PRN PRN Reason: pain Last Admin: 02/25/18 18:20 Dose: 100 mg Hyoscyamine (Hyomax-Sl) 0.125 mg SL Q4H PRN PRN Reason: esophageal spasms Last Admin: 03/01/18 19:38 Dose: 0.125 mg Dextrose/Lactated Ringer's (Dextrose 5%-Lactated Ringers) 1,000 mls @ 100 mls/ hr IV ASDIRECTED [facility] Last Admin: 03/02/18 06:02 Dose: 100 mls/hr Lactated Ringer's (Ringers, Lactated) 1,000 mls @ 166 mls/hr IV ASDIRECTED [facility] Last Admin: 02/25/18 08:24 Dose: 166 mls/hr Magnesium Sulfate 2 gm/ Premix 50 mls @ 25 mls/hr IV Q6H [facility] Stop: 03/03/18 03:59 Last Admin: 03/02/18 07:29 Dose: 25 mls/hr Labetalol HCl (Normodyne) 5 - 15 mg IVPUSH Q1H PRN PRN Reason: SBP over 160 OR DBP over 95 Metoclopramide HCl (Reglan) 10 mg PO Q6H PRN PRN Reason: Nausea/Vomiting Scopolamine Patch (Check) 1 each TOP DAILY [facility] Last Admin: 03/02/18 09:12 Dose: Not Given Ondansetron HCl (Zofran) 4 mg IVPUSH Q4H PRN PRN Reason: Nausea/Vomiting Last Admin: 02/28/18 03:36 Dose: 4 mg Ondansetron HCl (Zofran Odt) 4 mg PO Q4H PRN PRN Reason: Nausea/Vomiting Last Admin: 03/01/18 08:36 Dose: 4 mg Pantoprazole Sodium (Protonix) 40 mg PO Q24H [facility] Last Admin: 03/01/18 16:13 Dose: 40 mg Scopolamine (Transderm-Scop) 1.5 mg TRDERM Q72H [facility] Last Admin: 03/02/18 09:12 Dose: 1.5 mg Trazodone HCl (Trazodone) 50 mg PO BEDTIME PRN PRN Reason: Sleep Discontinued Medications Acetaminophen (Tylenol) 650 mg PO Q6H [facility] Last Admin: 03/02/18 03:50 Dose: Not Given Ropivacaine 47 ml/Dexamethasone 8 mg/Epinephrine HCl 0.4 mg/ Sodium Chloride 30.6 ml 0 ml NERVRT ASDIRECTED [facility] Last Admin: 02/23/18 13:20 Dose: 80 syringe Cyanocobalamin (Vitamin B12) 1,000 mcg IM ONETIME ONE Stop: 02/25/18 09:01 Last Admin: 02/25/18 08:22 Dose: 1,000 mcg Dexamethasone (Dexamethasone) Confirm Administered Dose 4 mg .ROUTE .STK-MED ONE Stop: 02/23/18 11:42 Fentanyl (Sublimaze) Confirm Administered Dose 100 mcg .ROUTE .STK-MED ONE Stop: 02/23/18 10:29 Fentanyl (Sublimaze) Confirm Administered Dose 250 mcg .ROUTE .STK-MED ONE Stop: 02/23/18 13:42 Fentanyl (Sublimaze) 100 mcg IVPUSH ONETIME ONE Stop: 02/23/18 14:22 Last Admin: 02/23/18 14:29 Dose: 100 mcg Furosemide (Lasix) 20 mg IVPUSH ONETIME ONE Stop: 02/25/18 08:01 Last Admin: 02/25/18 08:22 Dose: 20 mg Furosemide (Lasix) 20 mg IVPUSH ONETIME ONE Stop: 02/26/18 08:31 Last Admin: 02/26/18 08:37 Dose: 20 mg Gabapentin (Neurontin) 300 mg PO TID [facility] Last Admin: 02/24/18 15:04 Dose: Not Given Glycopyrrolate (Glycopyrrolate) 0.4 mg IVPUSH ONETIME ONE Stop: 02/23/18 10:01 Last Admin: 02/23/18 10:30 Dose: 0.4 mg Glycopyrrolate (Robinul) Confirm Administered Dose 1 mg .ROUTE .STK-MED ONE Stop: 02/23/18 11:42 Heparin Sodium (Porcine) (Heparin Sodium) 5,000 units SUBCUT Q12H [facility] Last Admin: 02/28/18 09:49 Dose: Not Given Hydromorphone HCl (Dilaudid [employer] 15 Mg In Ns 30 Ml) 0 mg IV ASDIRECTED PRN; Protocol PRN Reason: Pain Last Admin: 02/23/18 14:08 Dose: 0.3 mg Hydroxyzine HCl (Vistaril) 100 mg IM ONETIME ONE Stop: 02/23/18 14:22 Last Admin: 02/23/18 14:29 Dose: 100 mg Dextrose/Lactated Ringer's (Dextrose 5%-Lactated Ringers) 1,000 mls @ 100 mls/ hr IV ASDIRECTED [facility]BY Last Admin: 02/23/18 09:20 Dose: 100 mls/hr Ketamine HCl 100 mg/ Sodium (Chloride) 100 mls @ 18.48 mls/hr IV ASDIRECTED [facility] Lidocaine HCl/Dextrose (Lidocaine 2 Gm/D5w 500 Ml) 2 gm in 500 mls @ 22.5 mls/ hr IV .[id number] [facility] Stop: 02/24/18 11:13 Last Admin: 02/23/18 15:14 Dose: 1.5 mg/min, 22.5 mls/hr Lactated Ringer's (Ringers, Lactated) Confirm Administered Dose 1,000 mls @ as directed .ROUTE .[facility] ONE Stop: 02/23/18 13:42 Dextrose/Lactated Ringer's (Dextrose 5%-Lactated Ringers) 1,000 mls @ 175 mls/ hr IV ASDIRECTED [facility] Last Admin: 02/24/18 07:57 Dose: 175 mls/hr Meropenem 500 mg/ Sodium (Chloride) 50 mls @ 100 mls/hr IV Q6H [facility] Stop: 02/25/18 12:29 Last Admin: 02/25/18 12:41 Dose: 100 mls/hr Dextrose/Lactated Ringer's (Dextrose 5%-Lactated Ringers) 1,000 mls @ 100 mls/ hr IV ASDIRECTED [facility] Magnesium Sulfate 2 gm/ Premix 50 mls @ 25 mls/hr IV Q6H [facility] Stop: 02/27/18 05:59 Last Admin: 02/27/18 03:44 Dose: 25 mls/hr Potassium Phosphate 20 mmole/ (Sodium Chloride) 256.6667 mls @ 85 mls/hr IV Q3H [facility] Stop: 02/24/18 18:59 Last Admin: 02/24/18 16:55 Dose: 85 mls/hr Lactated Ringer's (Ringers, Lactated) 500 mls @ 500 mls/hr IV .BOLUS [facility] Last Admin: 02/24/18 16:55 Dose: 500 mls/hr Lactated Ringer's (Ringers, Lactated) 500 mls @ 500 mls/hr IV BOLUS ONE Stop: 02/24/18 20:16 Last Admin: 02/24/18 19:36 Dose: 500 mls/hr Potassium Chloride 20 meq/Lidocaine HCl 2 ml/ Sodium Chloride 112 mls @ 56 mls/ hr IV Q2H [facility] Stop: 02/25/18 14:59 Last Admin: 02/25/18 14:36 Dose: 56 mls/hr Albumin Human (Flexbumin 25%) 50 mls @ 25 mls/hr IV DAILY BOBBY Stop: 02/27/18 10:59 Last Admin: 02/27/18 08:29 Dose: 25 mls/hr Albumin Human (Flexbumin 25%) 50 mls @ 25 mls/hr IV Q24H [facility] Stop: 02/27/18 12:59 Last Admin: 02/27/18 10:38 Dose: 25 mls/hr Albumin Human (Flexbumin 25%) 50 mls @ 25 mls/hr IV Q24H [facility] Stop: 02/27/18 14:59 Last Admin: 02/27/18 14:33 Dose: 25 mls/hr Albumin Human (Flexbumin 25%) 50 mls @ 25 mls/hr IV Q24H [facility] Stop: 02/27/18 16:59 Last Admin: 02/27/18 15:08 Dose: 25 mls/hr Potassium Chloride 20 meq/Lidocaine HCl 2 ml/ Sodium Chloride 112 mls @ 56 mls/ hr IV Q2H [facility] Stop: 02/27/18 14:59 Last Admin: 02/27/18 15:09 Dose: 56 mls/hr Sodium Chloride (Normal Saline) 80 mls @ 3 mls/sec IV ASDIRECTED [facility]BY Stop: 02/28/18 08:30 Last Admin: 02/28/18 07:49 Dose: 3 mls/sec Potassium Chloride 20 meq/Lidocaine HCl 2 ml/ Sodium Chloride 112 mls @ 56 mls/ hr IV Q2H [facility] Stop: 02/28/18 15:59 Last Admin: 02/28/18 14:23 Dose: 56 mls/hr Iohexol (Omnipaque-300) 50 ml PO .ASDIRECTED STA Stop: 02/24/18 03:35 Last Admin: 02/24/18 03:46 Dose: 50 ml Iopamidol (Isovue-300 (61%)) 141 ml IV . DIRECTED [facility]BY Stop: 02/28/18 08:30 Last Admin: 02/28/18 07:49 Dose: 141 ml Ketamine HCl (Ketalar) 31 mg IV ASDIRECTED [facility]BY Labetalol HCl (Normodyne) Confirm Administered Dose 20 mg .ROUTE .STK-MED ONE Stop: 02/23/18 13:42 Lidocaine HCl (Xylocaine 2%) 112 mg IVPUSH ONETIME ONE Stop: 02/23/18 13:01 Last Admin: 02/23/18 15:54 Dose: Not Given Meropenem (Merrem) Confirm Administered Dose 1,000 mg .ROUTE .STK-MED ONE Stop: 02/23/18 11:54 Last Admin: 02/23/18 12:42 Dose: 500 mg Metoclopramide HCl (Reglan) 10 mg IVPUSH Q6H PRN PRN Reason: NAUSEA NOT CONTROL BY ZOFRAN Last Admin: 03/02/18 02:51 Dose: 10 mg Midazolam HCl (Versed 1 Mg/Ml) Confirm Administered Dose 2 mg .ROUTE .STK-MED ONE Stop: 02/23/18 10:38 Miscellaneous Information (Remove Patch) 1 ea TRDERM ONETIME ONE Stop: 02/25/18 10:01 Last Admin: 02/25/18 10:07 Dose: Not Given Morphine Sulfate (Morphine) 2 mg IVPUSH ONETIME ONE Stop: 02/23/18 09:32 Last Admin: 02/23/18 09:48 Dose: 2 mg Morphine Sulfate (Morphine Stoker [employer] 150 Mg In 30 Ml) 0 mg IV ASDIRECTED PRN; Protocol PRN Reason: PAIN Last Admin: 02/24/18 07:51 Dose: 150 mg Naloxone HCl (Narcan) 0.1 mg IV ASDIRECTED PRN PRN Reason: decreased respiratory rate Naloxone HCl (Narcan) 0.1 mg IV ASDIRECTED PRN PRN Reason: RESP Neostigmine Methylsulfate (Neostigmine) Confirm Administered Dose 5 mg .ROUTE .STK-MED ONE Stop: 02/23/18 11:42 Scopolamine Patch (Check) 1 each TOP DAILY [facility] Stop: 02/25/18 16:01 Last Admin: 02/25/18 08:21 Dose: Not Given Ondansetron HCl (Zofran) Confirm Administered Dose 4 mg .ROUTE .STK-MED ONE Stop: 02/23/18 11:42 Pantoprazole Sodium (Protonix Iv) 40 mg IVPUSH Q24H [facility] Last Admin: 02/26/18 15:56 Dose: 40 mg Propofol (Diprivan 20 Ml) Confirm Administered Dose 200 mg .ROUTE .STK-MED ONE Stop: 02/23/18 11:14 Propofol (Diprivan 20 Ml) Confirm Administered Dose 200 mg .ROUTE .STK-MED ONE Stop: 02/23/18 11:35 Propofol (Diprivan 20 Ml) Confirm Administered Dose 400 mg .ROUTE .STK-MED ONE Stop: 02/23/18 11:35 Propofol (Diprivan 20 Ml) Confirm Administered Dose 200 mg .ROUTE .STK-MED ONE Stop: 02/23/18 11:42 Rocuronium [place] (Zemuron) Confirm Administered Dose 50 mg .ROUTE .STK-MED ONE Stop: 02/23/18 11:42 Scopolamine (Transderm-Scop) 1.5 mg TOP Q72H [facility] Stop: 02/25/18 10:00 Last Admin: 02/23/18 16:56 Dose: 1.5 mg Scopolamine (Transderm-Scop) 1.5 mg TRDERM Q72H [facility] Last Admin: 03/01/18 09:32 Dose: Not Given Sodium Chloride (Saline Flush) 10 ml FLUSH ASDIRECTED PRN PRN Reason: Keep Vein Open Stop: 02/28/18 08:30 Last Admin: 02/28/18 07:49 Dose: 10 ml Succinylcholine Chloride (Quelicin) Confirm Administered Dose 200 mg .ROUTE .STK -MED ONE Stop: 02/23/18 11:42 - Exam General: Alert, Oriented, Cooperative, No Acute Distress HEENT: Pupils Equal, Mucous Membr. Moist/[place] Neck: Supple Lungs: Clear to Auscultation, Normal Respiratory Effort Cardiovascular: Regular Rate, Regular Rhythm GI/Abdominal Exam: Non-Tender Extremities: Normal Range of Motion Skin: Warm, Dry, Intact Wound/Incisions: Healing Well Neurological: No New Focal Deficit Psy/Mental Status: Alert, Normal Affect, Normal Mood - Problem List Review Problem List Initiated/Reviewed/Updated: Yes - Assessment Assessment:: Status post open esophageal stent removal and revision of RNY. - Plan Plan:: 1. Continue step two diet without solids or cereal 2. Magnesium Sulfate 2gm Pre mix Bad 1 bad IV q6h 3. Metoclopramide 10mg po q6h prn 4. Remove and replace Scopolamine patch 5. Remove drain 6. Reevaluate prn or in am
[2018-03-02] MEDS: Pantoprazole 40 MG Tab.CR PO SCH (16:01)
[2018-03-03] MEDS: diphenhydrAMINE 50 MG/ML SDV IVPUSH PRN ×2 (01:11→10:36)
[2018-03-03] MEDS: HYDROmorphone 2 MG Tab PO PRN ×4 (01:19→16:40)
[2018-03-03] MEDS: Magnesium Sulfate/Water 2 GM in Premix Bag 1 BAG IV SCH (02:08)
[2018-03-03] MEDS: Dextrose 5%-Lactated Ringers 1,000 ML IV SCH (02:09)
--- NOTE | 2018-03-03 08:16 | PCM.DCSUM1 ---
Discharge Summary - Hospital Course Brief History: Patient is a 37 year old white obese female. She has a history of gastric bypass surgery, depression and acute on chronic cholecystitis. She has had a prior EGD and received a perforation. She also has a prior history of smoking for 9 years and smoked .25 packs per day. - Discharge Data Discharge Date: 03/03/18 Discharge Disposition: Home, Self-Care 01 Condition: Good - Patient Summary/Data Operative Procedure(s) Performed: 1. Upper GI endoscopy. 2. Exploratory laparotomy with: - removal of stent form small bwoel. - proximal gastric rescetion with RNY gastrojujenostomy. - placement of interceed mesh to limit adhesion formation between pelvic and abdominal wall to underlying visera Complications: Stent had migrated to past the anastamosis and the patient had to be converted to an open procedure in order for removal. Hospital Course: Patient had surgery 02/23/2018. On POD #1 patient was tachycardic and lidocaine was discontinued. Her pulse came down, but was still in the upper range of normal. On POD #2 patient was lethargic and had decreased urine output. Two 500ml LR bolus were given. POD #3 pain was not controlled with [employer] and patient was switched to oral pain medication to prolong the effects. She received a Visteral shot and this had helped control the pain. POD #4 Patient after much encouragement began to ambulating and was up more than prior. She was having some nausea and increased abdominal pain. POD #5 She had increased pain and stated it was similar to what she experienced when she had a perforation. A CT was orderd and the patient was made NPO. POD #6 CT was negative and demonstrated post operative edema and the full liquid diet without solids was started agin. POD #7 pain was controlled and patient was tolerating her diet. POD #8 Patient is ready for discharge and excited to go home. - Patient Instructions Diet: Drink 8-10+ Glasses/Day Diet, Other: Step 2 Gastric Bypass Diet with No Cereal for 2 weeks ( 03/17/18 ) Activity: No Lifting Over 10 Pounds (for 6 weeks and then gradually increase ) Activity, Other: Walk at least 6 times daily inside your home Driving: Do Not Drive (while on pain medications ) Showering/Bathing: May Shower Wound/Incision Care: Keep Operative Site/Wound Site Clean and Dry Notify Provider of: Fever, Increased Pain, Swelling and Redness, Nausea and/or Vomiting Other/Special Instructions: Use incentive inspirometer 10 times every hour while awake for 1 week. - Discharge Plan Prescriptions/Med Rec: HYDROmorphone [Dilaudid] 2 - 4 mg PO Q4H PRN #40 tablet PRN Reason: Pain Ondansetron [Zofran ODT] 4 mg PO Q4H PRN #30 tab.dis PRN Reason: Nausea/Vomiting Home Medications: Home Meds Escitalopram [Lexapro] 10 mg PO DAILY 10/30/17 [History] traZODone HCl [Trazodone HCl] 50 mg PO BEDTIME PRN 10/30/17 [History] Ondansetron [Zofran ODT] 4 mg PO Q4H PRN #30 tab.dis 11/05/17 [Rx] Hyoscyamine [Levsin] 0.125 mg SL Q4HR PRN 12/07/17 [History] Acetaminophen [Tylenol] 650 mg PO Q6H cup 12/24/17 [Rx] HYDROmorphone [Dilaudid] 2 - 4 mg PO Q4H PRN #50 tab 02/13/18 [Rx] Metoclopramide HCl [Reglan] 10 mg PO QID #80 tablet 02/13/18 [Rx] HYDROmorphone [Dilaudid] 2 - 4 mg PO Q4H PRN #40 tablet 03/03/18 [Rx] Ondansetron [Zofran ODT] 4 mg PO Q4H PRN #30 tab.dis 03/03/18 [Rx] Referrals: Mandy Bob PA-C [Family Provider] - 03/11/18 11:00 am - Discharge Summary/Plan Comment DC Time >30 min.: Yes Discharge Summary/Plan Comment: 1. Continue Acetaminophen 650mh po q6hrs 2. Continue Escitalopram 10mg po qd 3. Continue Dilaudid 2-4mg po q4hr prn for pain 4. Continue Hyoscyamine 0.125mg sublingual q4 hr prn for esophageal spasms 5. Continue Metoclopramide HCl 10mg po QID 6. continue Odansetron 4mg po q4 hrs prn for nausea/vomiting 7. Continue Trazodone HCl 50mg po at bedtime for sleep 8. Discontinue Calcium Citrate/ Vitamin D3 1 tab po BID 9. Discontinue Cyanocobalamin 1000mcg sublingual qd 10. Discontinue Iron, Carbonyl/Ascorbic Acid 1 tab po qd 11. Discontinue Magnesium Oxide 400 mg po at bedtime 12. Discontinue Tizanididne 4mg po TID prn for muscle spasm 13. Discharge weight 208lbs - General Info Date of Service: 03/03/18 Admission Dx/Problem (Free Text: 1. Migrated endoscopic stent with inability to remove stent endoscopically 2. recent history of recurrent stricturing and perforation at gastrojejunostomy Subjective Update: Patient is POD #8. Her vitals are stable and there were no major problems overnight. She is up, ambulating and urinating. She is passing gas and has had one bowel movement in the last 24 hours. She is tolerating the step two diet without solids and would like to see dietary one last time before she leaves today. Her pain is currently controlled and is taking her Dilaudad q5hrs. Functional Status: Reports: Pain Controlled, Tolerating Diet, Ambulating, Urinating, Incentive Spirometry - Review of Systems General: Reports: No Symptoms HEENT: Reports: No Symptoms Pulmonary: Reports: No Symptoms Cardiovascular: Reports: No Symptoms Gastrointestinal: Reports: No Symptoms Genitourinary: Reports: No Symptoms Musculoskeletal: Reports: No Symptoms Skin: Reports: No Symptoms Neurological: Reports: No Symptoms Psychiatric: Reports: No Symptoms Systems Review Comment: Remainder of ROS is negative for any pertinent positives or negatives. - Patient Data Vitals - Most Recent: Last Vital Signs Temp 96.3 F 03/03/18 07:49 Pulse 94 03/03/18 07:49 Resp 16 03/03/18 07:49 BP 127/71 03/03/18 07:49 Pulse Ox 91 L 03/03/18 07:49 Weight - Most Recent: 208 lb 3.202 oz I&O - Last 24 hours: Intake & Output 03/02/18 03/03/18 03/03/18 22:59 06:59 14:59 Intake Total 1976 1918 Balance 1976 1918 - Exam General: Reports: Alert, Oriented, Cooperative, No Acute Distress HEENT: Reports: Pupils Equal, Mucous Membr. Moist/[place] Neck: Reports: Supple Lungs: Reports: Clear to Auscultation, Normal Respiratory Effort Cardiovascular: Reports: Regular Rate, Regular Rhythm GI/Abdominal Exam: Normal Bowel Sounds Extremities: Normal Range of Motion Skin: Reports: Warm, Dry, Intact Wound/Incisions: Reports: Healing Well ([place].), Dressing Dry and Intact, No Drainage Neurological: Reports: No New Focal Deficit Psy/Mental Status: Reports: Alert, Normal Affect, Normal Mood
[2018-03-03] MEDS: Escitalopram 10 MG Tab PO SCH (08:26)
[2018-03-03] MEDS: SCOPOLAMINE PATCH CHECK TOP SCH (10:18)
[2018-03-03] MEDS ORDERED: Magnesium Hydroxide 400 MG/5 ML Susp 30 ML Cup PO ONE (10:43)
[2018-03-03] MEDS: Pantoprazole 40 MG Tab.CR PO SCH (17:20)
== END 2018-03-03 17:29 | disposition home or self-care (01) | DRG 909 ==
LOC: JP.MS 08:13 → JP.SDS 08:13 → EDSTATUS 10:00 → JP.2SS 13:55
PROVIDERS: ADMIT Surgery; ATTEND Surgery
PROC: 0DP Gastrointestinal System, Removal (ICD-10-PCS; principal; 2018-02-23)
PROC: 0DB60ZX Excision of Stomach, Open Approach, Diagnostic (ICD-10-PCS; 2018-02-23)
PROC: 0DBA0ZX Excision of Jejunum, Open Approach, Diagnostic (ICD-10-PCS; 2018-02-23)
PROC: 0DJ68ZZ Inspection of Stomach, Via Natural or Artificial Opening Endoscopic (ICD-10-PCS; 2018-02-23)
PROC: 3E0M05Z Introduction of Adhesion Barrier into Peritoneal Cavity, Open Approach (ICD-10-PCS; 2018-02-23)
DX: T85.898A Other specified complication of other internal prosthetic devices, implants and grafts, initial encounter (principal); K22.2 Esophageal obstruction; R10.13 Epigastric pain; F32.9 Major depressive disorder, single episode, unspecified; Z87.891 Personal history of nicotine dependence; Z98.84 Bariatric surgery status; Z98.0 Intestinal bypass and anastomosis status; R33.9 Retention of urine, unspecified; R00.0 Tachycardia, unspecified; T41.3X5A Adverse effect of local anesthetics, initial encounter; Y92.239 Unspecified place in hospital as the place of occurrence of the external cause
CPT/HCPCS: 36415; 51702; 74177; 74240; 74240-26; 80053; 83735; 84100; 85025; 85027; 88300; 88307; 94762; 97116-GP; 97161-GP; A9270-GY; C9113; J0171; J0330; J1100; J1170; J1200; J1644; J1940; J2001; J2185; J2250; J2270; J2405; J2704; J2710; J2765; J2795; J3010; J3410; J3420; J3475; J3480; J3490; J7030; J7042; J7050; J7120; P9047; Q9967

== ENCOUNTER 2018-03-09 16:08 | Inpatient (IN) | payer OTHER ==
[2018-03-09] MEDS ORDERED: Ondansetron 4 MG/2 ML SDV IVPUSH ONE (17:51)
[2018-03-09] MEDS ORDERED: Sodium Chloride 0.9% 10 ML Syringe FLUSH PRN (17:51)
[2018-03-09] MEDS ORDERED: HYDROmorphone 1 MG/ML Syringe IVPUSH ONE (17:51)
[2018-03-09] MEDS ORDERED: Sodium Chloride 0.9% 1,000 ML IV SCH (18:00)
--- NOTE | 2018-03-09 18:00 | EDM.PDOC ---
ED HPI GENERAL MEDICAL PROBLEM - General Chief Complaint: Abdominal Pain Stated Complaint: CAN'T MANAGE PAIN WITH MEDS/SURINDER PAGAN PT Time Seen by Provider: 03/09/18 16:54 Source of Information: Reports: Patient, Family, Old Records, RN Notes Reviewed History Limitations: Reports: No Limitations - History of Present Illness INITIAL COMMENTS - FREE TEXT/NARRATIVE: 37-year-old female presents to the emergency department day complaint of abdominal pain, she was evaluated in the emergency department at [facility] please see note and lab work for details recently underwent revision of her gastric bypass on 03-03 which she had a stent placed which had migrated past the anastomosis and this was revised at that time. She continues to have ongoing abdominal pain with nausea and vomiting - Related Data Allergies Allergy/AdvReac Type Severity Reaction Status Date / Time celecoxib [From Celebrex] Allergy Agitation Verified 02/23/18 09:08 cyclobenzaprine Allergy Nervousness Verified 02/23/18 09:08 [From Flexeril] NSAIDS (Non-Steroidal Allergy Cannot Verified 02/23/18 09:08 Anti-Inflamma Remember amitriptyline AdvReac Hallucinati Verified 02/23/18 09:08 ons ketoprofen AdvReac Diarrhea Verified 02/23/18 09:08 multivitamin infusion, adult AdvReac Nausea and Verified 02/23/18 09:08 no.4 with vitamin K Vomiting [From Infuvite Adult] thiamine (vitamin B1) AdvReac Nausea and Verified 02/23/18 09:08 Vomiting multi vit lr bag AdvReac Nausea and Uncoded 02/23/18 09:08 Vomiting Home Meds: Home Meds Escitalopram [Lexapro] 10 mg PO DAILY 10/30/17 [History] traZODone HCl [Trazodone HCl] 50 mg PO BEDTIME PRN 10/30/17 [History] Ondansetron [Zofran ODT] 4 mg PO Q4H PRN #30 tab.dis 11/05/17 [Rx] Hyoscyamine [Levsin] 0.125 mg SL Q4HR PRN 12/07/17 [History] Acetaminophen [Tylenol] 650 mg PO Q6H cup 12/24/17 [Rx] HYDROmorphone [Dilaudid] 2 - 4 mg PO Q4H PRN #50 tab 02/13/18 [Rx] Metoclopramide HCl [Reglan] 10 mg PO QID #80 tablet 02/13/18 [Rx] HYDROmorphone [Dilaudid] 2 - 4 mg PO Q4H PRN #40 tablet 03/03/18 [Rx] Ondansetron [Zofran ODT] 4 mg PO Q4H PRN #30 tab.dis 03/03/18 [Rx] Past Medical History HEENT History: Reports: Allergic Rhinitis, Impaired Vision Respiratory History: Reports: Bronchitis, Recurrent Gastrointestinal History: Reports: GERD Musculoskeletal History: Reports: Back Pain, Chronic, Osteoarthritis Psychiatric History: Reports: Depression Endocrine/Metabolic History: Reports: Obesity/BMI 30+ Hematologic History: Reports: B12 Deficiency, Folic Acid - Infectious Disease History Infectious Disease History: Reports: Chicken Pox - Past Surgical History HEENT Surgical History: Reports: Other (See Below) Other HEENT Surgeries/Procedures: Tear duct opened up - left eye GI Surgical History: Reports: Bariatric Procedure, Cholecystectomy, EGD, Hernia , Abdominal, Other (See Below) Other GI Surgeries/Procedures: egd dil 12/07/17, 12/18/17, 01/12/18, 02/04/18, esophageal stent Musculoskeletal Surgical History: Reports: Arthroscopic Knee, Other (See Below) Other Musculoskeletal Surgeries/Procedures:: Bilateral knee Social & Family History - Family History Family Medical History: Noncontributory - Caffeine Use Caffeine Use: Reports: Coffee, Soda Other Caffeine Use: no caffeine since gastric bypass ED ROS GENERAL - Review of Systems Review Of Systems: See Below Constitutional: Reports: No Symptoms Respiratory: Reports: No Symptoms Cardiovascular: Reports: No Symptoms GI/Abdominal: Reports: Abdominal Pain, Nausea, Vomiting ED EXAM, GI/ABD - Physical Exam Exam: See Below Exam Limited By: No Limitations General Appearance: Alert, WD/WN, No Apparent Distress Respiratory/Chest: No Respiratory Distress GI/Abdominal Exam: Soft, Tender Course - Vital Signs Last Recorded V/S: Last Vital Signs Temp 97.8 F 03/09/18 16:43 Pulse 98 03/09/18 16:43 Resp 16 03/09/18 16:43 BP 136/87 03/09/18 16:43 Pulse Ox 98 03/09/18 16:43 - Orders/Labs/Meds Orders: Active Orders 24 hr Category Date Time Status Peripheral IV Care [RC] . DIRECTED Care 03/09/18 17:52 Ordered Sodium Chloride 0.9% [Normal Saline] 1,000 ml Med 03/09/18 18:00 Ordered IV ASDIRECTED Sodium Chloride 0.9% [Saline Flush] Med 03/09/18 17:51 Ordered 10 ml FLUSH ASDIRECTED PRN Peripheral IV Insertion Adult [OM.PC] Urgent Oth 03/09/18 17:51 Ordered Medication Orders Sodium Chloride (Normal Saline) 1,000 mls @ 500 mls/hr IV ASDIRECTED BOBBY Sodium Chloride (Saline Flush) 10 ml FLUSH ASDIRECTED PRN PRN Reason: Keep Vein Open Meds: Medications Generic Name Dose Route Start Last Admin Trade Name Freq PRN Reason Stop Dose Admin Sodium Chloride 1,000 mls @ 500 mls/hr 03/09/18 18:00 Normal Saline IV ASDIRECTED BOBBY Sodium Chloride 10 ml 03/09/18 17:51 Saline Flush FLUSH ASDIRECTED PRN Keep Vein Open Discontinued Medications Generic Name Dose Route Start Last Admin Trade Name Freq PRN Reason Stop Dose Admin Hydromorphone HCl 1 mg 03/09/18 17:51 Dilaudid IVPUSH 03/09/18 17:52 ONETIME ONE Ondansetron HCl 4 mg 03/09/18 17:51 Zofran IVPUSH 03/09/18 17:52 ONETIME ONE Departure - Departure Time of Disposition: 18:00 Disposition: Admitted As Inpatient 68 Condition: Fair Clinical Impression: Abdominal pain Qualifiers: Abdominal location: generalized Qualified Code(s): R10.84 - Generalized abdominal pain - Discharge Information Referrals: PCP,None [Primary Care Provider] - - My Orders Last 24 Hours: My Active Orders 03/09/18 17:51 Sodium Chloride 0.9% [Saline Flush] 10 ml FLUSH ASDIRECTED PRN Peripheral IV Insertion Adult [OM.PC] Urgent 03/09/18 17:52 Peripheral IV Care [RC] . DIRECTED 03/09/18 18:00 Sodium Chloride 0.9% [Normal Saline] 1,000 ml IV ASDIRECTED - Assessment/Plan Last 24 Hours: My Active Orders 03/09/18 17:51 Sodium Chloride 0.9% [Saline Flush] 10 ml FLUSH ASDIRECTED PRN Peripheral IV Insertion Adult [OM.PC] Urgent 03/09/18 17:52 Peripheral IV Care [RC] . DIRECTED 03/09/18 18:00 Sodium Chloride 0.9% [Normal Saline] 1,000 ml IV ASDIRECTED Plan: Assessment Acuity = acute Site and laterality = abdominal pain complicated in a patient with known history gastric bypass status post revision on March 03 Etiology = unclear etiology Manifestations = nausea and vomiting Location of injury = Home Lab values = none please see essential ED notes for details Plan Called discussed case Dr. Pagan he will evaluate patient hospital plan for EGD with dilation in the morning This note was dictated using Reveal voice recognition software please call with any questions on syntax or grammar.
[2018-03-09] MEDS ORDERED: HYDROmorphone 1 MG/ML Syringe IVPUSH PRN (18:08)
[2018-03-09] MEDS ORDERED: traZODone 50 MG Tab PO PRN (18:09)
[2018-03-09] MEDS: Lactated Ringers 1,000 ML IV SCH (18:46)
[2018-03-09] MEDS ORDERED: Hyoscyamine 0.125 MG Tab.SL SL PRN (18:59)
[2018-03-09] MEDS ORDERED: Morphine 2 MG/ML Syringe IVPUSH PRN (22:17)
[2018-03-10] MEDS: Ondansetron 4 MG/2 ML SDV IVPUSH PRN ×2 (02:22→07:06)
[2018-03-10] MEDS: Lactated Ringers 1,000 ML IV SCH (02:32)
[2018-03-10] MEDS ORDERED: Ondansetron 4 MG/2 ML SDV IVPUSH ONE (06:58)
[2018-03-10] MEDS: Metoclopramide 10 MG/2 ML SDV IV SCH ×3 (07:39→19:23)
[2018-03-10] MEDS: fentaNYL 25 MCG/HR Transdermal Patch TRDERM SCH (07:50)
[2018-03-10] MEDS ORDERED: Acetaminophen Soln 650 MG/20.3 ML UD Cup PO SCH (08:00)
[2018-03-10] MEDS ORDERED: Iopamidol 612 MG/ML 150 ML Bottle IV STA (08:13)
[2018-03-10] MEDS ORDERED: Iohexol 647 MG/ML 50 ML SDV PO STA (08:15)
[2018-03-10] MEDS ORDERED: Acetaminophen 1,000 MG in Premix Bag 1 BAG IV ONE (09:00)
[2018-03-10] MEDS: VERIFY FENT PATCH TOP SCH ×2 (10:35→20:32)
[2018-03-10] MEDS: Dextrose 5%-Lactated Ringers 1,000 ML IV SCH ×2 (10:36→19:12)
[2018-03-10] MEDS: Escitalopram 10 MG Tab PO SCH (10:45)
[2018-03-10] MEDS: Ondansetron 4 MG/2 ML SDV IVPUSH SCH ×3 (12:29→19:23)
[2018-03-10] MEDS: HYDROmorphone 2 MG Tab PO PRN ×3 (12:48→21:42)
[2018-03-10] MEDS: Acetaminophen Soln 650 MG/20.3 ML UD Cup PO SCH ×2 (15:41→20:33)
[2018-03-10] MEDS: traZODone 50 MG Tab PO SCH (21:42)
[2018-03-11] MEDS: Ondansetron 4 MG/2 ML SDV IVPUSH SCH ×6 (00:04→20:41)
[2018-03-11] MEDS: Metoclopramide 10 MG/2 ML SDV IV SCH ×4 (02:38→20:41)
[2018-03-11] MEDS: Acetaminophen Soln 650 MG/20.3 ML UD Cup PO SCH ×2 (02:38→03:28)
[2018-03-11] MEDS: HYDROmorphone 2 MG Tab PO PRN ×4 (02:46→23:14)
[2018-03-11] MEDS: Dextrose 5%-Lactated Ringers 1,000 ML IV SCH ×3 (02:47→21:56)
[2018-03-11] MEDS ORDERED: Scopolamine 1.5 MG Transdermal Patch TRDERM PRN (07:50)
--- NOTE | 2018-03-11 08:21 | PN ---
DATE OF SERVICE: 03/10/2018 The patient has been afebrile with stable vital signs. 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 She is not really having significant dysphagia by history, so I do not think we need to do an upper endoscopy at this time. We will obtain a CT scan of the abdomen and pelvis today with some oral and IV contrast, and otherwise maximize the antinausea medication, Zofran, Reglan, and we will add a fentanyl patch to help with the pain. We will offer some oral Dilaudid on a p.r.n. basis as well. After the CT scan is completed, we will evaluate the situation and in turn if any need for intervention per se. Spencer Pagan MD Job #: [id number]
[2018-03-11] MEDS: Escitalopram 10 MG Tab PO SCH (08:58)
[2018-03-11] MEDS: Magnesium Sulfate/Water 2 GM in Premix Bag 1 BAG IV SCH ×3 (08:59→20:53)
[2018-03-11] MEDS: VERIFY FENT PATCH TOP SCH ×2 (09:01→20:55)
--- NOTE | 2018-03-11 11:11 | PN ---
DATE OF SERVICE: 03/11/2018 SUBJECTIVE: Montse was admitted for uncontrolled abdominal pain on 03/09/2018. She does have a fentanyl patch done using a GUEST EXPERIENCE SPECIALIST and oral Tylenol. States she is very nauseated. Had 4 loose stools, and potassium this morning was 2.8. REVIEW OF SYSTEMS: HEENT: Negative. NECK: Negative. HEART: No chest pain or shortness of breath. LUNGS: No cough. ABDOMEN: As above. : Has a UA with urine culture pending from the Emergency Department in [place], [place]. EXTREMITIES: No joint pain or swelling. NEURO: No headaches, dizziness, or loss of coordination. SKIN: Without rash. Remainder of review of systems is negative for any pertinent positives and negatives. OBJECTIVE: GENERAL: Montse Salazar is a 37-year-old female, color pale. VITAL SIGNS: TPR 97.4, 86, 18. Blood pressure 122/71. HEENT: Negative. NECK: Supple. HEART: Regular rate and rhythm. LUNGS: Clear. ABDOMEN: [place] intact. There is a small amount of light lynn drainage noted from her mid incision area. There is no hematoma or seroma palpated. Abdominal binder has been on. EXTREMITIES: Without peripheral edema. NEURO: Intact. SKIN: Without rash. ASSESSMENT: 1. Abdominal pain. 2. Status post Tha-en-Y gastric bypass surgery. 3. Unspecified surgical malabsorption. 4. B12 deficiency. 5. Hypokalemia with a potassium of 2.8. PLAN: 1. Discontinue Tylenol. 2. Potassium acetate 88 mmol IV today. 3. Magnesium 2 g q.6 hours x72 hours IV. 4. Call for UA/UC done at the Emergency Department in [facility]. 5. Scopolamine patch, replace every 72 hours. 6. Remove vale, place Steri-Strips. 7. We will evaluate p.r.n. or in the a.m. Mandy Bob PA-C /[id number]
[2018-03-11] MEDS: LORazepam 2 MG/ML SDV IVPUSH PRN (16:12)
[2018-03-11] MEDS: traZODone 50 MG Tab PO SCH (20:43)
[2018-03-12] MEDS: Ondansetron 4 MG/2 ML SDV IVPUSH SCH ×6 (00:20→21:44)
[2018-03-12] MEDS: Magnesium Sulfate/Water 2 GM in Premix Bag 1 BAG IV SCH ×4 (02:08→21:44)
[2018-03-12] MEDS: Metoclopramide 10 MG/2 ML SDV IV SCH ×4 (02:09→19:52)
[2018-03-12] MEDS: LORazepam 2 MG/ML SDV IVPUSH PRN (04:22)
[2018-03-12] MEDS: Dextrose 5%-Lactated Ringers 1,000 ML IV SCH ×2 (05:38→11:25)
[2018-03-12] MEDS ORDERED: fentaNYL 100 MCG/2 ML SDV ONE (07:13)
[2018-03-12] MEDS ORDERED: Midazolam 1 MG/ML 2 ML SDV ONE (07:13)
[2018-03-12] MEDS ORDERED: Propofol 200 MG/20 ML SDV ONE (07:13)
[2018-03-12] MEDS ORDERED: Glycopyrrolate 0.2 MG/ML 2 ML SDV IV ONE (07:30)
[2018-03-12] MEDS ORDERED: Dexamethasone 4 MG/ML SDV ONE (08:04)
[2018-03-12] MEDS ORDERED: Thiamine 200 MG/2 ML MDV IM ONE (08:30)
[2018-03-12] MEDS ORDERED: LORazepam 2 MG/ML SDV IVPUSH PRN (08:38)
[2018-03-12] MEDS: SCOPOLAMINE PATCH CHECK TOP SCH (08:53)
[2018-03-12] MEDS: VERIFY FENT PATCH TOP SCH ×2 (08:57→22:37)
[2018-03-12] MEDS: HYDROmorphone 2 MG Tab PO PRN ×2 (09:16→21:43)
--- NOTE | 2018-03-12 09:59 | PN ---
DATE OF SERVICE: 03/12/2018 SUBJECTIVE: Saira has been nauseated. Staff stated that she gets her Zofran and Reglan and it seems to cause more nausea. She did have Ativan, and she was sleepy with 1 mg, but the 0.5 mg, she was able to tolerate that better. Continues to report pain on a pain scale of 1 to 10, 6 all the time, and she states about a 9 when the pain medication wears off. She is on Dilaudid as well as a fentanyl patch. Vital signs have been stable, afebrile. Oral intake, there was nothing recorded. She did not have any emesis. Urine output 350. No bowel movements. REVIEW OF SYSTEMS: Remainder of review of systems negative for any pertinent positives and negatives. Potassium was 3 and hemoglobin was 10.5. OBJECTIVE: GENERAL: Montse Salazar is a 37-year-old female. She is quite sleepy. VITAL SIGNS: TPR is 97.6, 95, 18. Blood pressure 130/85. HEENT: Negative. NECK: Supple. HEART: Regular rate and rhythm. LUNGS: Clear. ABDOMEN: Soft. Incision is well healed. There is a scant amount of lynn drainage on the dressing. EXTREMITIES: Without peripheral edema. NEURO: Intact. SKIN: Without rash. ASSESSMENT: Abdominal pain, status post Tha-en-Y gastric bypass surgery, nausea, hypokalemia, unspecified surgical malabsorption, and B12 deficiency. PLAN: 1. Schedule, have consent signed for EGD with possible dilation today. 2. Robinul 0.4 mg on-call to OR. 3. K-Phos 60 mmol IV. 4. Check CBC, CMP, magnesium, and phosphorus in the a.m. 5. Decrease Ativan to 0.5 mg q.4 hours. 6. Communication order written to give Zofran and to stagger the Zofran and Reglan, do not give it together. 7. We will evaluate p.r.n. or in the a.m. Mandy Bob PA-C /[id number]
[2018-03-12] MEDS: methylPREDNISolone Sodium Succinate 125 MG/2 ML SDV IVPUSH SCH ×2 (11:25→17:18)
[2018-03-12] MEDS: Potassium Phosphates 20 MMOLE in Sodium Chloride 0.9% 250 ML IV SCH ×3 (11:44→18:36)
[2018-03-12] MEDS: Escitalopram 10 MG Tab PO SCH (13:24)
[2018-03-12] MEDS: traZODone 50 MG Tab PO SCH (21:43)
[2018-03-13] MEDS: Ondansetron 4 MG/2 ML SDV IVPUSH SCH ×7 (00:07→23:56)
[2018-03-13] MEDS: methylPREDNISolone Sodium Succinate 125 MG/2 ML SDV IVPUSH SCH ×3 (02:18→17:46)
[2018-03-13] MEDS: Metoclopramide 10 MG/2 ML SDV IV SCH ×4 (02:19→19:21)
[2018-03-13] MEDS: Magnesium Sulfate/Water 2 GM in Premix Bag 1 BAG IV SCH ×4 (02:25→21:35)
[2018-03-13] MEDS: HYDROmorphone 2 MG Tab PO PRN ×4 (05:06→21:33)
[2018-03-13] MEDS: Dextrose 5%-Lactated Ringers 1,000 ML IV SCH ×2 (05:46→19:28)
[2018-03-13] MEDS: Multivitamins with Iron Tab.Chew PO SCH (08:15)
[2018-03-13] MEDS: VERIFY FENT PATCH TOP SCH ×2 (08:16→21:34)
[2018-03-13] MEDS: Escitalopram 10 MG Tab PO SCH (08:16)
[2018-03-13] MEDS: SCOPOLAMINE PATCH CHECK TOP SCH (08:16)
[2018-03-13] MEDS: fentaNYL 25 MCG/HR Transdermal Patch TRDERM SCH (13:17)
--- NOTE | 2018-03-13 15:15 | HP ---
HISTORY: The patient has been afebrile with stable vital signs. Her nausea appears to be clearing at this point and oral intake yesterday was 1100 mL. We will go up to a step-3 diet today and continue the steroids. I think the latter is probably what finally brought us to the point where she is not significantly nauseated. I suspect there may be some edema or angulation at the jejunojejunostomy causing using the steroids may help reduce the edema at that location. We will leave the IV Reglan and Zofran and scopolamine patch later today along with the Solu-Medrol and begin switching things to oral regimen tomorrow. Should she continue to do well with regard to the nausea issue, we will go over to step-3 diet and begin teaching the patient dressing changes to her open abdominal incision. Spencer Pagan MD /[id number]
[2018-03-13] MEDS: traZODone 50 MG Tab PO SCH (21:36)
[2018-03-14] MEDS: Magnesium Sulfate/Water 2 GM in Premix Bag 1 BAG IV SCH (02:53)
[2018-03-14] MEDS: HYDROmorphone 2 MG Tab PO PRN ×5 (02:53→23:19)
[2018-03-14] MEDS: Metoclopramide 10 MG/2 ML SDV IV SCH (02:54)
[2018-03-14] MEDS: methylPREDNISolone Sodium Succinate 125 MG/2 ML SDV IVPUSH SCH ×3 (02:55→17:23)
[2018-03-14] MEDS: Dextrose 5%-Lactated Ringers 1,000 ML IV SCH ×2 (03:08→13:11)
[2018-03-14] MEDS: Ondansetron 4 MG/2 ML SDV IVPUSH SCH (04:55)
[2018-03-14] MEDS: Ondansetron 4 MG Tab.DIS PO SCH ×3 (09:31→19:19)
[2018-03-14] MEDS: Metoclopramide 10 MG Tab PO SCH ×3 (09:31→21:11)
[2018-03-14] MEDS: SCOPOLAMINE PATCH CHECK TOP SCH (09:32)
[2018-03-14] MEDS: Multivitamins with Iron Tab.Chew PO SCH (09:32)
[2018-03-14] MEDS: Escitalopram 10 MG Tab PO SCH (09:32)
[2018-03-14] MEDS: VERIFY FENT PATCH TOP SCH ×2 (09:33→20:05)
[2018-03-14] MEDS: traZODone 50 MG Tab PO SCH (21:11)
[2018-03-15] MEDS: Ondansetron 4 MG Tab.DIS PO SCH (01:13)
[2018-03-15] MEDS: methylPREDNISolone Sodium Succinate 125 MG/2 ML SDV IVPUSH SCH ×3 (01:14→17:56)
[2018-03-15] MEDS: Metoclopramide 10 MG Tab PO SCH ×4 (02:44→21:28)
[2018-03-15] MEDS: HYDROmorphone 2 MG Tab PO PRN ×4 (04:30→19:50)
[2018-03-15] MEDS ORDERED: LORazepam 0.5 MG Tab PO PRN (07:41)
[2018-03-15] MEDS: Multivitamins with Iron Tab.Chew PO SCH (08:21)
[2018-03-15] MEDS: Escitalopram 10 MG Tab PO SCH (08:23)
[2018-03-15] MEDS: Ondansetron 4 MG Tab.DIS PO PRN ×2 (08:23→19:59)
[2018-03-15] MEDS: SCOPOLAMINE PATCH CHECK TOP SCH (08:24)
[2018-03-15] MEDS: VERIFY FENT PATCH TOP SCH ×2 (08:24→21:28)
--- NOTE | 2018-03-15 09:20 | PN ---
DATE OF SERVICE: 03/15/2018 SUBJECTIVE: Montse started a step-3 diet last night. She did have stir owen. She reports an increase in nausea. Does not feel ready to go home today. She was taught how to pack her open abdominal incision. Vital signs have been stable. Her activity has increased. REVIEW OF SYSTEMS: Remainder of review of systems negative for any pertinent positives and negatives. OBJECTIVE: GENERAL: Montse Salazar is a 37-year-old female. She is alert and orientated. Color pale. VITAL SIGNS: TPR 95.9, 53, 18, and blood pressure 132/94. HEENT: Negative. NECK: Supple. HEART: Regular rate and rhythm. LUNGS: Clear. ABDOMEN: Incision dressing is dry and intact. Abdominal binder is on. EXTREMITIES: Without peripheral edema. ASSESSMENT: Abdominal pain status post Tha-en-Y gastric bypass surgery, nausea, hypokalemia, unspecified surgical malabsorption, B12 deficiency, EGD, and open abdominal incision. PLAN: 1. Change Zofran to q.4 hours scheduled. 2. Ativan 0.5 mg p.o. q.6 hours p.r.n. nausea. 3. Continue scheduled Reglan. 4. [facility] /[id number]
[2018-03-15] MEDS: traZODone 50 MG Tab PO SCH (21:28)
[2018-03-16] MEDS: HYDROmorphone 2 MG Tab PO PRN ×3 (02:27→14:04)
[2018-03-16] MEDS: methylPREDNISolone Sodium Succinate 125 MG/2 ML SDV IVPUSH SCH ×2 (02:27→09:01)
[2018-03-16] MEDS: Metoclopramide 10 MG Tab PO SCH ×2 (02:27→08:17)
[2018-03-16] MEDS: Dextrose 5%-Lactated Ringers 1,000 ML IV SCH (03:00)
[2018-03-16] MEDS ORDERED: Calcium Carbonate 500 MG Tab.Chew PO PRN (07:56)
[2018-03-16] MEDS: VERIFY FENT PATCH TOP SCH (08:12)
[2018-03-16] MEDS: SCOPOLAMINE PATCH CHECK TOP SCH (08:12)
[2018-03-16] MEDS: Multivitamins with Iron Tab.Chew PO SCH (08:17)
[2018-03-16] MEDS: Escitalopram 10 MG Tab PO SCH (08:17)
[2018-03-16] MEDS ORDERED: Furosemide 20 MG/2 ML VIAL IVPUSH ONE (09:00)
--- NOTE | 2018-03-16 13:19 | DISCH ---
ADMISSION DIAGNOSES: 1. Abdominal pain. 2. Nausea and vomiting. 3. Unspecified surgical malabsorption. 4. B12 deficiency. 5. Chronic back pain. 6. Osteoarthritis. 7. Depression. DISCHARGE DIAGNOSES: EGD on 03/12/2018, status post nausea and vomiting, status post Tha- en-Y gastric bypass surgery, unspecified surgical malabsorption, and B12 deficiency. HISTORY: Montse Salazar presented to the emergency room on 03/09/2018 for abdominal pain, which she stated she could not manage with pain medications at home. She came from the emergency department at [place], [place]. Montse was evaluated in the emergency department at [facility] and was admitted to the hospital under Dr. Spencer Pagan's service to evaluate pain and for an EGD with possible dilation. Montse was admitted. On 03/10/2018, vital signs were stable. She had nausea and dry heaves both with Dilaudid and morphine. She continued to have dysphagia. A CT scan was obtained with oral and IV contrast. She was started on Zofran, Reglan, and a fentanyl patch to help with pain and Dilaudid orally. On 03/11/2018, pain was better managed. Her potassium was 2.8 and that was replaced. Her magnesium was also replaced. On 03/12/2018, she continued to be nauseated. She stated that the Zofran and the Reglan added to her nausea. The pain continued to be uncontrolled. She did not have a bowel movement. She did sign the consent for an EGD. Her EGD was on 03/13/2018 and was normal. On 03/13/2018, her nausea seemed to be improving with scheduled Reglan and scheduled Zofran with a scopolamine patch. Her oral intake was 1100. She was advanced to a step-3 diet. She also was started on Solu-Medrol to help with some edema or angulation at the jejunojejunostomy. On 03/14/2018, she continued to progress. On 03/15/2018, she tolerated a step-3 diet. She did choose a stir owen, which caused some nausea. She was able to be discharged on 03/16/2018 with the nausea controlled with the Reglan and Zofran. She did report, prior to discharge, that she had some blurred vision and felt a little dizzy. The scopolamine patch was discontinued as well as the fentanyl patch. Montse had her EGD on 03/12/2018, her incision was draining a small amount and it was opened up, and she did have a seroma. So, her open incision will be packed twice a day, and she was taught how to pack and dress this open incision. Discharged on 03/16/2018 without any complications. PHYSICAL EXAMINATION: GENERAL: Montse Salazar is a 37-year-old female. VITAL SIGNS: Height is 5 feet 7 inches. Weight is 208 pounds. TPR is 98.9, 56, 16, and blood pressure is 161/88. It had been running 125 to 153/76 to 80. HEENT: Negative. NECK: Supple. HEART: Regular rate and rhythm. LUNGS: Clear. ABDOMEN: Dressings dry and intact. Incision is packed. Abdominal binder is on. EXTREMITIES: With some peripheral edema. Lasix 20 mg IV was given prior to discharge. DISPOSITION: Discharged to home. CONDITION: Stable and improving. FOLLOWUP APPOINTMENT: With Mandy Bob PA-C, on 03/23/2018 at 8:45 a.m., at [place], [place]. DISCHARGE MEDICATIONS: New Prescriptions: 1. Dilaudid 2 mg 1 to 2 every 4 hours p.r.n. pain, #40. 2. Medrol 4 mg Dosepak, take as directed. 3. Reglan 10 mg oral every 6 hours p.r.n. nausea, 120. 4. Zofran ODT 4 mg sublingual q.4 hours p.r.n. nausea, #30, with 3 refills. To resume all of her home medications of; 1. Tylenol 650 oral q.6 hours p.r.n. pain. 2. Lexapro 10 mg oral daily. 3. Levsin 0.125 mg sublingual every 4 hours p.r.n. esophageal spasms. 4. Trazodone 50 mg oral at bedtime p.r.n. sleep. DIET: Step-3 gastric bypass diet. Drink 8 to 10 glasses of water a day. ACTIVITY: As tolerated. Walk 6 times daily inside your home. Driving, do not drive while on pain medication. Shower/bathing, may shower. DISCHARGE INSTRUCTIONS: Notify provider if any fever, increased pain, nausea, or vomiting. Keep site clean and dry. Pack and change dressing as directed in open wound twice daily.
--- NOTE | 2018-03-17 12:56 | PN ---
DATE OF SERVICE: 03/14/2018 The patient has been afebrile with stable vital signs. Oral intake has been fairy good around 1200 mL and we will begin switching the Reglan and Zofran to oral version today, and we will continue with the Solu-Medrol as well, I think that is an acute component of her feeling better. We will probably switch her to oral steroids probably tomorrow will begin teaching dressing changes. Spencer Pagan MD /[id number]
--- NOTE | 2018-03-20 10:20 | OR ---
DATE OF PROCEDURE: 03/12/2018 PREOPERATIVE DIAGNOSES: 1. Persistent postoperative nausea. 2. Partially drained wound seroma. POSTOPERATIVE DIAGNOSES: 1. Persistent nausea, status post Tha-en-Y gastric bypass with bile reflux into Tha limb. 2. Partially drained wound seroma. OPERATIVE PROCEDURES: 1. Upper GI endoscopy (61707). 2. Opening of wound seroma ([id number]). ANESTHESIA: IV sedation. INDICATIONS FOR PROCEDURE: The patient presents with some recurrent persistent nausea status post a revisional procedure of her gastric bypass. The plan is to proceed with upper GI endoscopy with biopsies and/or dilation as indicated. Potential risks of that procedure including bleeding and perforation were discussed, and the patient wishes to proceed. The patient also has some persistent serous, noninfected-appearing fluid draining from the midportion of her upper abdominal incision. This will be opened up to the extent as needed to Lao drain the seroma and allow secondary closure. DETAILS OF PROCEDURE: The patient was taken to the operating room and placed initially in the left lateral decubitus position. IV sedation was administered, after which the upper GI endoscope was passed orally through the length of the esophagus and into the gastric pouch, through the gastrojejunostomy, roughly 20 cm into the Tha limb. At this point, the esophagus and EG junction areas were noted to be normal. The gastrojejunostomy was widely patent with no involving stricturing evident at this point. The significant finding was that of some bile within the Tha limb indicative of some persistent ileus or possible partial obstruction at the area of the jejunojejunostomy. The scope was then withdrawn and the endoscopic procedure then concluded. All of the bilious material had been evacuated via the endoscope prior to its removal. The patient was placed in the supine position. A small opening, which had been draining some fluid, was then opened and some Vicryl sutures underlying that were divided. Roughly, 6 cm section of the incision was then opened. This went down not quite to the fascia, but fairly deep. The underlying fascia was intact. Fluid, again was serous and did not appear to be infected or associated with any surrounding cellulitis. The wound was then packed open with 4x4s, and we will allow it to close secondarily. We will add some IV steroids to the patient's regimen at this point in addition to the antiemetics to see if that may hasten some reduction in some edema of her recent jejunojejunostomy, which I suspect is the culprit in this case. The patient was taken to the recovery room in a satisfactory condition. Spencer Pagan MD /[id number]
== END 2018-03-16 14:00 | disposition home or self-care (01) | DRG 345 ==
LOC: JP.ED 16:08 → JP.2SS 18:05 → OBSVTOIN 03-12 14:15
PROVIDERS: ADMIT Surgery; ATTEND Surgery
PROC: 0D9A8ZZ Drainage of Jejunum, Via Natural or Artificial Opening Endoscopic (ICD-10-PCS; principal; 2018-03-12)
PROC: 0J980ZZ Drainage of Abdomen Subcutaneous Tissue and Fascia, Open Approach (ICD-10-PCS; 2018-03-12)
DX: R10.84 Generalized abdominal pain (principal); L76.34 Postprocedural seroma of skin and subcutaneous tissue following other procedure; K91.2 Postsurgical malabsorption, not elsewhere classified; R13.10 Dysphagia, unspecified; R11.2 Nausea with vomiting, unspecified; E83.42 Hypomagnesemia; E87.6 Hypokalemia; Z98.84 Bariatric surgery status; Z98.0 Intestinal bypass and anastomosis status; E53.8 Deficiency of other specified B group vitamins; F32.9 Major depressive disorder, single episode, unspecified; M54.9 Dorsalgia, unspecified; G89.29 Other chronic pain; M19.90 Unspecified osteoarthritis, unspecified site; H54.7 Unspecified visual loss; Z88.8 Allergy status to other drugs, medicaments and biological substances; S31.109A Unspecified open wound of abdominal wall, unspecified quadrant without penetration into peritoneal cavity, initial encounter; H53.8 Other visual disturbances; R42 Dizziness and giddiness; T44.3X5A Adverse effect of other parasympatholytics [anticholinergics and antimuscarinics] and spasmolytics, initial encounter; T40.4X5A Adverse effect of other synthetic narcotics, initial encounter; Y92.230 Patient room in hospital as the place of occurrence of the external cause
CPT/HCPCS: 36415; 74177; 80053; 81001; 82150; 82728; 82746; 83690; 83735; 84100; 84425; 85027; 87493; 94762; 96361; 96365; 96366; 96372; 96374; 96375; 96376; 99285-25; A9270-GY; G0378; J0131; J1100; J1170; J1940; J2060; J2250; J2270; J2405; J2704; J2765; J2930; J3010; J3411; J3475; J3490; J7030; J7042; J7050; J7120; Q9967

== ENCOUNTER 2018-04-27 17:07 | Inpatient (IN) | payer OTHER ==
[2018-04-27] MEDS ORDERED: Acetaminophen 325 MG Tab PO PRN (17:15)
[2018-04-27] MEDS ORDERED: Acetaminophen 650 MG Supp RECTAL PRN (17:16)
[2018-04-27] MEDS ORDERED: Hyoscyamine 0.125 MG Tab.SL SL PRN (17:18)
[2018-04-27] MEDS ORDERED: traZODone 50 MG Tab PO PRN (17:19)
[2018-04-27] MEDS ORDERED: Ondansetron 4 MG Tab.DIS PO PRN (17:19)
[2018-04-27] MEDS ORDERED: Thiamine 200 MG/2 ML MDV IM ONE (18:00)
[2018-04-27] MEDS ORDERED: Lactated Ringers 500 ML IV ONE (18:00)
[2018-04-27] MEDS: Metoclopramide 10 MG/2 ML SDV IVPUSH SCH (18:12)
[2018-04-27] MEDS: Dextrose 5%-Lactated Ringers 1,000 ML IV SCH (19:16)
[2018-04-27] MEDS: Pantoprazole 40 MG Vial IV SCH (21:22)
[2018-04-27] MEDS: Potassium Chloride 20 MEQ in Premix Bag 3 BAG IV ONE (23:16)
[2018-04-27] MEDS: Lidocaine 1% 20 ML MDV INJECT ONE (23:16)
[2018-04-27] MEDS: Magnesium Sulfate/Water 2 GM in Premix Bag 1 BAG IV SCH (23:17)
[2018-04-28] MEDS: Metoclopramide 10 MG/2 ML SDV IVPUSH SCH ×5 (01:04→23:23)
[2018-04-28] MEDS: Potassium Chloride 20 MEQ in Premix Bag 3 BAG IV ONE ×2 (01:09→03:10)
[2018-04-28] MEDS: Dextrose 5%-Lactated Ringers 1,000 ML IV SCH ×3 (02:03→23:23)
[2018-04-28] MEDS: Lidocaine 1% 20 ML MDV INJECT ONE (03:11)
[2018-04-28] MEDS: Magnesium Sulfate/Water 2 GM in Premix Bag 1 BAG IV SCH ×4 (05:25→21:59)
[2018-04-28] MEDS ORDERED: Pneumococcal Polyvalent-23 Vaccine 0.5 ML SDV IM ONE (09:00)
--- NOTE | 2018-04-28 09:00 | PN ---
DATE OF SERVICE: 04/28/2018 SUBJECTIVE: She was admitted yesterday as a direct admit from [place], [place] for partial small bowel obstruction who is post status Tha-en-Y gastric bypass surgery with bile in her Tha limb per EGD on 04/16/2018. She continues to have reflux. She does state this morning after receiving IV fluids and she has been n.p.o. since midnight. She is feeling better, but still can feel the mid epigastric discomfort. REVIEW OF SYSTEMS: Remainder of review of systems negative for any pertinent positives and negatives. All 12 systems were reviewed. OBJECTIVE: GENERAL: Montse Salazar is a 38-year-old female. She does look better than yesterday. VITAL SIGNS: TPR is 97.9, 95, 15, blood pressure 99/63. HEENT: Negative. NECK: Supple. HEART: Regular rate and rhythm. LUNGS: Clear. ABDOMEN: Remains to be tender in all 4 quadrants. EXTREMITIES: Without peripheral edema. ASSESSMENT: Partial small bowel obstruction status post Tha-en-Y gastric bypass surgery, bile in Tha limb diagnosed, EGD on 04/16/2018, SP Tha-en-Y gastric bypass surgery 11/03/2017. Total weight loss is 108.4, unspecified surgical malabsorption, B12 deficiency, back pain, depression, osteoarthritis. PLAN: 1. Scheduled for an upper GI with small-bowel follow-through for this morning at 0800 to call Spencer Pagan MD with results. 2. We will evaluate p.r.n. or in a.m. Mandy Bob PA-C /[id number]
[2018-04-28] MEDS ORDERED: Barium Sulfate 98% Powder for Susp 340 GM Bottle PO SCH (10:15)
[2018-04-28] MEDS: Pantoprazole 40 MG Vial IV SCH ×2 (10:32→20:50)
[2018-04-28] MEDS: Escitalopram 10 MG Tab PO SCH (10:32)
--- NOTE | 2018-04-28 12:40 | CR ---
UGI w Small Bowel wo Air CLINICAL HISTORY: Epigastric discomfort, abdominal pain FINDINGS: Patient drank thin barium without difficulty. The esophagus had a normal contour. There is no evidence of stricture. Patient is status post bariatric surgery. The there is no evidence of obstr uction. Small bowel follow-through: Barium passed through the small intestine to the right colon in approximately 40 minutes. Intestinal configuration and mucosal pattern is normal. There was relatively rapid transit from ileocecal valve to rectum. Impression: Status post bariatric surgery No evidence of obstruction No evidence of esophageal stricture Relatively rapid transit through the colon may represent spasm
[2018-04-28] MEDS: Calcium Carbonate 500 MG Tab.Chew PO PRN (22:29)
[2018-04-29] MEDS: Magnesium Sulfate/Water 2 GM in Premix Bag 1 BAG IV SCH ×4 (03:51→21:34)
[2018-04-29] MEDS: Metoclopramide 10 MG/2 ML SDV IVPUSH SCH ×3 (05:46→17:19)
[2018-04-29] MEDS: Dextrose 5%-Lactated Ringers 1,000 ML IV SCH (05:51)
[2018-04-29] MEDS ORDERED: Dextrose 5%-Lactated Ringers 1,000 ML IV SCH (07:29)
[2018-04-29] MEDS ORDERED: Aluminum Hydroxide/Magnesium Hydroxide/Simethicone Susp 30 ML Cup PO PRN (08:11)
[2018-04-29] MEDS: Sucralfate Suspension 1 GM/10 ML Cup PO SCH ×4 (08:18→20:25)
[2018-04-29] MEDS: Aluminum Hydroxide/Magnesium Hydroxide/Simethicone Susp 30 ML Cup PO SCH ×4 (08:49→20:25)
[2018-04-29] MEDS: Potassium Phosphates 15 MMOLE in Sodium Chloride 0.9% 250 ML IV SCH ×2 (09:03→12:40)
[2018-04-29] MEDS: Escitalopram 10 MG Tab PO SCH (09:06)
[2018-04-29] MEDS: Pantoprazole 40 MG Vial IV SCH (09:09)
--- NOTE | 2018-04-29 10:46 | PN ---
DATE OF SERVICE: 04/29/2018 SUBJECTIVE: Montse had a completely negative upper GI with small-bowel follow-through. Within 45 minutes, the contrast was into the rectum. She states she is less nauseated. Continues to have quite a bit in the way of heartburn. She has had oral intake of 1000. Urine output has not been received yet. Per nursing staff since admission, she has had 2 bowel movements and oral intake has been watermelon and crackers. REVIEW OF SYSTEMS: HEENT: Negative. GENERAL: No fever, chills, night sweats, or fatigue. NECK: Negative. HEART: No chest pain, shortness of breath, fast or irregular heartbeat. LUNGS: No cough. ABDOMEN: As above. : Negative. EXTREMITIES: Without joint pain or swelling. SKIN: Without rash. NEURO: Intact. PSYCHIATRIC: Positive for depression. Remainder of review of systems negative for any pertinent positives and negatives. LABORATORY DATA: Potassium was 3.5. OBJECTIVE: GENERAL: Montse Salazar is a 38-year-old female. Alert and orientated. VITAL SIGNS: TPR 97.7, 94, 16. Blood pressure 114/70. HEENT: Negative. NECK: Supple. HEART: Regular rate and rhythm. LUNGS: Clear. ABDOMEN: Soft, nontender. EXTREMITIES: Without peripheral edema. ASSESSMENT: 1. Partial small bowel obstruction status post Tha-en-Y gastric bypass surgery with bile Tha limb. 2. Dehydration. 3. Mid epigastric abdominal pain. 4. Status post Tha-en-Y gastric bypass surgery. 5. Unspecified surgical malabsorption. 6. B12 deficiency. 7. Back pain. 8. Depression. 9. Osteoarthritis. PLAN: 1. Dietary consult in regard to increasing protein intake. 2. Protein supplements q.i.d. and at bedtime. 3. Carafate 500 mg liquid before meals and bedtime. 4. Gaviscon use as directed after meals and p.r.n. during the night. 5. K-Phos 30 millimoles IV. 6. Decrease IV to 60 mL per hour. 7. Concentrate on protein intake and fluid intake. 8. Discontinue as many crackers. 9. We will evaluate p.r.n. or in a.m. Mandy Bob PA-C /[id number]
[2018-04-29] MEDS: Pantoprazole 40 MG Tab.CR PO SCH (15:59)
[2018-04-29] MEDS: Calcium Carbonate 500 MG Tab.Chew PO PRN (22:50)
[2018-04-30] MEDS: Metoclopramide 10 MG/2 ML SDV IVPUSH SCH ×3 (00:42→11:44)
[2018-04-30] MEDS: Aluminum Hydroxide/Magnesium Hydroxide/Simethicone Susp 30 ML Cup PO SCH ×2 (07:40→11:44)
[2018-04-30] MEDS: Sucralfate Suspension 1 GM/10 ML Cup PO SCH ×2 (07:41→11:43)
[2018-04-30] MEDS: Pantoprazole 40 MG Tab.CR PO SCH (07:41)
[2018-04-30] MEDS: Escitalopram 10 MG Tab PO SCH (08:50)
--- NOTE | 2018-04-30 10:50 | DISCH ---
ADMISSION DIAGNOSES: 1. Partial small bowel obstruction. 2. Dehydration status post Tha-en-Y gastric bypass surgery, unspecified surgical malabsorption, B12 deficiency, and gastroesophageal reflux disease without esophagitis. DISCHARGE DIAGNOSES: Resolution of partial small bowel obstruction, dizziness, weakness, and dehydration. HISTORY: Montse Salazar is a 38-year-old female who had a laparoscopic Tha-en-Y gastric bypass surgery on 11/03/2017. After her gastric bypass surgery, she had her gallbladder removed on 03/12/2018 and had difficulty with dysphagia, eating and GERD. She presented to the [facility] on 04/27/2018 was a direct admit to the hospital. She did have IV fluids and by the next morning, she felt better. An upper GI was completely negative. She did receive dietary instruction reinforcement of protein and stress the importance of eating protein first and getting her fluids and to avoid dehydration. She gradually increased her oral intake. Her potassium and magnesium were replaced and she was able to be discharged to home on 04/30/2018. REVIEW OF SYSTEMS: CONSTITUTIONAL: Denies any fever, chills, night sweats, or fatigue. HEENT: Negative for any headache, dizziness, or loss of coordination. NECK: Negative. HEART: No chest pain, shortness of breath, fast or irregular heart beat. LUNGS: No cough. ABDOMEN: Having loose stools. Heartburn is better and she is getting in adequate fluids. Nausea has resolved. : Negative. EXTREMITIES: Negative for any joint pain or swelling. NEURO: Intact. PSYCHIATRIC: Mood and affect appropriate. OBJECTIVE: GENERAL: Montse Salazar is a 38-year-old female. VITAL SIGNS: Height is 5 feet 6 inches. Weight is 191 pounds. TPR is 97.5, 111, 18, blood pressure 126/74. HEENT: Negative. NECK: Supple. HEART: Regular rate and rhythm. LUNGS: Clear. ABDOMEN: Soft and nontender. EXTREMITIES: Negative. : Deferred. NEURO: Intact. SKIN: Without rash. PSYCHIATRIC: Mood and affect has improved. DISPOSITION: Discharged to home. CONDITION: Stable and improving. FOLLOWUP APPOINTMENT: Mandy Bob PA-C on 05/11/2018 at 10 a.m. at [facility]. HOME MEDICATIONS: She is to resume all her home medications including vitamins and supplements. DIET: Usual diet as tolerated, step 4 gastric bypass diet, 65 g of protein and 64 ounces of fluid. ACTIVITY: Gradually increase walking, distance and time as tolerated. Notify clinic if any nausea, vomiting, or change in status. Greater than 20 minutes was spent in patient education and discharge.
== END 2018-04-30 16:36 | disposition home or self-care (01) | DRG 389 ==
LOC: JP.MS 17:07
PROVIDERS: ADMIT Surgery; ATTEND Surgery
DX: K56.600 Partial intestinal obstruction, unspecified as to cause (principal); K91.2 Postsurgical malabsorption, not elsewhere classified; E86.0 Dehydration; E87.6 Hypokalemia; E83.42 Hypomagnesemia; K21.9 Gastro-esophageal reflux disease without esophagitis; Z98.84 Bariatric surgery status; Z98.0 Intestinal bypass and anastomosis status; E53.8 Deficiency of other specified B group vitamins; R42 Dizziness and giddiness; R53.1 Weakness
CPT/HCPCS: 36415; 74245; 74245-26; 80053; 83735; 84100; 85027; 90732; A9270-GY; C9113; J2765; J3411; J3475; J3480; J3490; J7042; J7050

== ENCOUNTER 2020-02-29 13:19 | Inpatient (IN) | payer OTHER ==
[2020-02-29] MEDS ORDERED: Acetaminophen 325 MG Tab PO PRN (13:53)
[2020-02-29] MEDS ORDERED: Acetaminophen 650 MG Supp RECTAL PRN (13:54)
[2020-02-29] MEDS ORDERED: Lactated Ringers 1,000 ML IV ONE (14:00)
[2020-02-29] MEDS ORDERED: Ondansetron 4 MG/2 ML SDV IVPUSH PRN (14:00)
[2020-02-29] MEDS ORDERED: Atropine/Diphenoxylate 0.025-2.5 MG Tab PO PRN (14:00)
[2020-02-29] MEDS ORDERED: tiZANidine 2 MG Tab PO PRN (14:02)
[2020-02-29] MEDS ORDERED: traZODone 50 MG Tab PO PRN (14:06)
[2020-02-29] MEDS ORDERED: MAGNESIUM SULFATE IV ONE ×4 (15:00)
[2020-02-29] MEDS ORDERED: VITAMIN K IV ONE ×4 (15:00)
[2020-02-29] MEDS ORDERED: [UNRECOGNIZED DRUG - OTHER] IV ONE ×4 (15:00)
[2020-02-29] MEDS ORDERED: MVI IV ONE ×4 (15:00)
[2020-02-29] MEDS ORDERED: FOLIC ACID IV ONE ×4 (15:00)
[2020-02-29] MEDS: Pantoprazole 40 MG Vial IV SCH (15:38)
[2020-02-29] MEDS: Metoclopramide 10 MG/2 ML SDV IV SCH ×2 (15:38→21:13)
[2020-02-29] MEDS: Loperamide 2 MG Cap PO SCH ×2 (15:41→21:21)
[2020-02-29] MEDS: Amylase/Lipase/Protease 12,000 Unit Cap.CR PO SCH (17:50)
[2020-02-29] MEDS: Dextrose 5%-Lactated Ringers 1,000 ML IV SCH (17:53)
--- NOTE | 2020-02-29 18:25 | HP ---
HISTORY OF PRESENT ILLNESS: Pamela (Montse Salazar) is a 39-year-old female who has had health issues since January 10, 2020. She presented to the clinic on January 10, 2020 for symptoms of midepigastric pain after eating and drinking. She felt like things were going slow through her digestive tract. She was having diarrhea 4 to 5 times a day, which is her normal. In October, she was treated for reactive hypoglycemia and that seemed to be resolving with Trulicity once a week. She had an upper GI with small-bowel follow-through which was completely normal, started on Protonix 40 mg and Carafate 1 g with meals and given IV fluids. Ferritin was 5, so she was given iron infusion. Hemoglobin A1c was 5.2 with an average blood sugar of 103. Pamela presented on 01/20/2020 with dehydration, only able to drink 40 ounces of fluid per day including her protein drinks stating that her stomach hurts when she drinks. She said she feels backed up and bloated, and was constipated. Her last BM was 3 days prior to clinic appointment. She was encouraged to increase fluids, was instructed to take MiraLAX 119 g the day of appointment and the day after, and to continue with the Venofer infusions, and she got fluid at that time. A referral was made to the GI specialist for persistent midepigastric pain. Prior to getting into the GI specialist, a CT scan was ordered of abdomen and pelvis. Because of persistent pain, CT scan was done on 02/01/2020. Impression showed, 1. No acute intraabdominal or intrapelvic pathology. 2. Surgical changes from Tha-en-Y gastric bypass surgery. Throughout this time, she received IV fluids through the infusion center in [place]. A angiography nurse appointment was on 02/02/2020 and an EGD and colonoscopy with lab tests were ordered. At that time, she continued to have mid epigastric pain. Her diarrhea had increased in average of 5 stools a day. She was down 15 pounds. EGD and colonoscopy were negative. Follow up on 02/17/2020, GI specialist, Mireya Sims PA-C. Mireya stated that she showed no improvement in her symptoms at all. Her nausea actually had increased, so she started on a scopolamine patch and Lomotil 3 times a day with meals because C diff, enteric pathogens, and pancreatic elastase were all normal. At that time, Trulicity was thought to be an underlying cause of her symptoms, so that was stopped, and a referral was made to [facility]. Pamela continued to require IV fluids. She was seen in appointment on 02/22/2020. Weight was down 20 pounds. She started Trulicity for reactive hypoglycemia in October of 2019, had symptoms of diarrhea started January 2020. The scopolamine patch was helping with nausea, continued to have 10 loose stools a day, taking Imodium and Lomotil, still struggling with eating and drinking. States her esophagus feels dry. At that appointment, Imodium was added to take 2 tabs every 4 hours while awake, to continue Lomotil, and Creon was added along with discontinuation of Trulicity. Today, Pamela presented to the clinic stating she feels very weak, malnourished. Weight has been stable, but diarrhea 8 to 10 stools a day whether she eats or not. Constant nausea. So far today she has not had anything to eat or drink. She averages around 20 ounces of fluid a day. Protein is not adequate. When she feels like she cannot eat, she will try toast crackers with peanut butter, and she is also drinking some juice. Currently, she states is on a step 2-3 diet, averages 20 ounces of fluid a day including juice, diet lois cece, and coffee. Has not been able to take vitamins for 2 weeks. Date of Tha-en-Y gastric bypass surgery 11/03/2017. Pamela had a Tha-en-Y gastric bypass surgery on 11/03/2017. Consult weight was 296. On 12/07/2017, she had an EGD with dilatation. On 12/22/2017, she had a diagnostic laparoscopy with suture of focal perforation of the gastrojejunostomy and drainage of perigastric inflammatory fluid collection for probable focal perforation at the gastrojejunostomy with small perigastric inflammatory fluid collection adjacent to the gastrojejunostomy. She was discharged on 12/25/2019. On 01/01, Pamela had a diagnostic laparoscopy with cholecystectomy and drainage of inflammatory bilious fluid collection posterior to the gallbladder for subacute and acute cholecystitis with focal necrosis and adjacent bilious inflammatory fluid collection underlining the gallbladder. She had an EGD on 01/12/2018, 02/04/2018, and on 02/06/2018 she had a diagnostic laparoscopy with closure of perforation of the gastrojejunostomy, drainage of perigastric inflammatory fluid collection for perforated gastrojejunostomy with associated pneumoperitoneum and perigastric inflammatory fluid. On 02/07/2018, placement of covered endoscopic stent centered over the gastrojejunostomy for recurrent perforation of the gastrojejunostomy. She was discharged on 02/13/2018. On 02/23/2018, upper GI endoscopy with exploratory laparotomy and removal of stent from small bowel proximal gastric resection with Tha-en-Y gastrojejunostomy and placement of Interceed mesh to limit adhesion formation between the pelvic and abdominal avilez to underlying viscera for migrated endoscopic stent with inability to remove the stent endoscopy and recent history of recurrent stricturing and perforation of the gastrojejunostomy. She was discharged on 03/03/2018. On 03/12/2018, she had an upper GI endoscopy and opening of wound seroma for persistent nausea, status post Tha-en-Y gastric bypass with bile reflux into the Tha limb and partially drained wound seroma. She was discharged on 03/16/2018. On 04/16/2018, an EGD with dilatation. On 04/28/2018, an upper GI, and discharged on 04/30/2018. Pamela has done very well until October of 2019 when she developed some reactive hypoglycemia. She was treated with Precose and Trulicity, and starting as above chief complaint on 01/10/2020. Consult weight 296, preop weight 283, height 67.2. Tha-en-Y revision 02/23/2018, preop weight 208.3, height is 67.2. Today's weight 134.7, BMI 20.94, total weight loss 161.3, pulse 113, respirations 20, temperature 97.9, blood pressure 98/62. CURRENT MEDICATIONS: Zofran ODT 4 mg 1 every 6 hours p.r.n. nausea; Protonix 40 mg 1 tablet daily; Carafate 1 g 1 tablet by mouth 4 times a day, currently on hold; Tizanidine 2 mg 1 q.8 hours p.r.n. lower back pain, she takes 1 p.r.n. at bedtime; Creon 24,000 International Units 3 times a day with meals; Lomotil 2.5-0.025 mg 1 every 6 hours p.r.n. diarrhea; Lexapro 20 mg p.o. daily; trazodone 50 mg p.o. at bedtime p.r.n. sleep. PAST MEDICAL HISTORY: 1. History of Tha-en-Y gastric bypass surgery. 2. Unspecified surgical malabsorption. 3. B12 deficiency. 4. Chronic back pain. 5. Depression. 6. Osteoarthritis. 7. Vitamin D deficiency. 8. Iron deficiency anemia, low ferritin 5. PAST SURGICAL HISTORY: As listed above. SOCIAL HISTORY: Does not smoke. Caffeine use coffee p.r.n. Carbonation diet lois cece. Protein intake not adequate. Fluid 20 ounces including juice daily. PHQ-9 score 11. Mild major depression. Single. Currently unemployed, was laid off during . No children. FAMILY HISTORY: Mother; obesity, arthritis, kidney disease, liver disease. Father; obesity, diabetes, cardiovascular disease, arthritis, hypertension. Maternal grandmother; obesity, arthritis, hypertension. Paternal grandmother; obesity, diabetes, arthritis, hypertension. Paternal grandfather; arthritis and hypertension. Family history negative for breast cancer, colon cancer, and cervical cancer. PHYSICAL EXAMINATION: GENERAL: Pamela Salazar is a pleasant 39-year-old female, appears very weak. VITAL SIGNS: Today's weight is 134.7, up 1 pound from last clinic visit of 133 on 02/22/2020. TPR 97.9, 113, 16, blood pressure is 98/62. HEENT: Negative. NECK: Supple. HEART: Regular rate and rhythm, although tachycardiac with heart rate of 113. ABDOMEN: Soft, nontender. Well-healed incisions. GENITOURINARY: Deferred. EXTREMITIES: Without peripheral edema. NEUROLOGIC: Cranial nerves 2 through 12 intact. PSYCHIATRIC: Mood and affect flat. MUSCULOSKELETAL: Equal muscle strength in upper and lower extremities. SKIN: Remainder of skin without rash. ASSESSMENT: 1. Malnutrition due to chronic nausea. 2. Weight loss. BMI 20.94. 3. Diarrhea. 4. Low ferritin 5. 5. Just received Venofer infusions. 6. Reactive hypoglycemia. 7. Unspecified surgical malabsorption. 8. B12 deficiency. 9. Vitamin D deficiency. 10.Chronic back pain. 11.Depression. PLAN: 1. Admit to [facility] as inpatient. 2. Diet: Step 4 gastric bypass diet. Activity: Up ad jean claude. 3. Vital signs every 4 hours. 4. Maintenance IV of D5 LR 125 mL per hour. 5. Check stools for C diff, culture and sensitivity, O and P. 6. Check CBC, CMP, mag phos now. 7. SCDs. 8. Protonix 40 mg IV q.12 hours. Lactated Ringer's 1 L over 1 hour, then 1 L with 1 amp MVI 2 g magnesium and 1 mg folic acid to run over 2 hours. Continue Creon 24,000 units t.i.d. with meals, Lomotil 2.5-0.025 mg 1 every 6 hours p.r.n. diarrhea, Zofran 4 mg IV every 4 hours p.r.n. nausea, Reglan IV 10 mg q.6 hours scheduled. Discontinue scopolamine patch while on Reglan. Tizanidine 2 mg at bedtime p.r.n. muscle spasms, probiotic 2 p.o. b.i.d., Lexapro 20 mg p.o. daily, Imodium 2 mg every 4 hours scheduled, trazodone 50 mg p.o. at bedtime p.r.n. sleep. Accurate I and O. 9. Watch the patient take medications. 10.PT evaluation and treat. 11.Dietary consultation. 12.The patient has a midline PICC line. Dr. Pagan said it is okay to use. Pamela will be hospitalized for 3 days possibly and 4 nights pending condition. May need consideration of placing a gastrostomy tube in for nutrition. Mandy Bob PA-C /[id number] ADRIEN
[2020-02-29] MEDS: Lactobacillus Rhamnosus GG (Probiotic) Cap PO SCH (21:14)
[2020-03-01] MEDS: Loperamide 2 MG Cap PO SCH ×6 (00:08→19:53)
[2020-03-01] MEDS: Dextrose 5%-Lactated Ringers 1,000 ML IV SCH ×3 (00:08→22:02)
[2020-03-01] MEDS: Metoclopramide 10 MG/2 ML SDV IV SCH (04:10)
[2020-03-01] MEDS: Pantoprazole 40 MG Vial IV SCH ×2 (04:10→14:49)
[2020-03-01] MEDS: Amylase/Lipase/Protease 12,000 Unit Cap.CR PO SCH ×3 (08:32→16:53)
[2020-03-01] MEDS: Escitalopram 20 MG Tab PO SCH (08:32)
[2020-03-01] MEDS: Lactobacillus Rhamnosus GG (Probiotic) Cap PO SCH ×2 (08:32→21:07)
[2020-03-01] MEDS: Metoclopramide 10 MG Tab PO SCH ×3 (09:07→21:06)
--- NOTE | 2020-03-01 13:22 | PN ---
DATE OF SERVICE: 03/01/2020 SUBJECTIVE: Pamela was admitted yesterday for extreme nausea, dehydration, and malnutrition. Lab tests revealed albumin 3.6, total protein 6.6, potassium 4.8, and hemoglobin 13.3. Weight today is 140 pounds 6.4 ounces. Vital signs have been stable. Afebrile. Oral intake 400 and urine output 950. States that she has had 4 stools, only 1 was witnessed. She was getting juice, which definitely caused more dumping during the night. REVIEW OF SYSTEMS: Remainder of review of systems negative for any pertinent positives and negatives. OBJECTIVE: GENERAL: Montse Salazar is a 39-year-old female, very flat affect. VITAL SIGNS: TPR at 0659; 95.9, 73, 16, blood pressure 96/53. HEENT: Negative. NECK: Supple. HEART: Regular rate and rhythm. LUNGS: Clear. ABDOMEN: Soft, nontender. EXTREMITIES: Without peripheral edema. ASSESSMENT: 1. Malnutrition due to chronic nausea. 2. Weight loss, BMI 20.94. 3. Diarrhea. 4. Low ferritin of 5, just received Venofer infusions. 5. Reactive hypoglycemia. 6. Unspecified surgical malabsorption. 7. B12 deficiency. 8. Vitamin D deficiency. 9. Chronic back pain. 10.Depression. 11.Noncompliance with medical management. PLAN: 1. The patient stated to nursing staff that she has not been taking any of her medications that were prescribed. 2. Psych evaluation, Al Brown. Message left on his answering machine at [facility]. 3. Strict I and O. Nursing staff to visualize bowel movements. Pamela was instructed not to flush them. Discontinue scopolamine patch. This was not done yesterday as ordered. 4. Reglan 10 mg p.o. every 6 hours scheduled. 5. Give multivitamin bag without thiamine over 2 hours. 6. To write actual oral intake, what she ate and how much, note in chart. 7. No juice or caffeine, even if the patient asks for it, causes dumping syndrome. 8. Dietary consult. 9. We will evaluate p.r.n. or in a.m. Mandy Bob PA-C /[id number]
[2020-03-01] MEDS ORDERED: MVI, Adult with Vitamin K 10 ML, Chromium/Copper/Mang/Selen/Zn 1 ML in Lactated Ringers... IV SCH ×3 (16:00)
[2020-03-02] MEDS: Loperamide 2 MG Cap PO SCH ×3 (00:28→07:50)
[2020-03-02] MEDS: Pantoprazole 40 MG Vial IV SCH (04:03)
[2020-03-02] MEDS: Metoclopramide 10 MG Tab PO SCH ×2 (04:04→11:57)
[2020-03-02] MEDS: Dextrose 5%-Lactated Ringers 1,000 ML IV SCH (06:03)
[2020-03-02] MEDS: Amylase/Lipase/Protease 12,000 Unit Cap.CR PO SCH (07:50)
[2020-03-02] MEDS: Escitalopram 20 MG Tab PO SCH (08:04)
[2020-03-02] MEDS: Lactobacillus Rhamnosus GG (Probiotic) Cap PO SCH (08:04)
[2020-03-02] MEDS ORDERED: Cyanocobalamin (Vitamin B12) 1,000 MCG/ML SDV IM ONE (09:00)
--- NOTE | 2020-03-02 10:12 | DISCH ---
ADMISSION DIAGNOSES: Severe nausea; malnutrition; diarrhea; weight loss; low ferritin of 5, completed Venofer infusion; reactive hypoglycemia; status post Tha-en-Y gastric bypass surgery; unspecified surgical malabsorption; B12 deficiency; vitamin D deficiency; chronic back pain; and depression. DISCHARGE DIAGNOSES: Nausea, resolved; diarrhea, controlled; malnutrition; status post Tha- en-Y gastric bypass surgery; unspecified surgical malabsorption; B12 deficiency; chronic back pain; depression; and osteoarthritis. HISTORY: Montse Salazar is a 39-year-old female who developed some health issues since January 10, 2020. She continued to not improve with her nausea despite Reglan, Zofran, Phenergan, and scopolamine patch. Diarrhea, she reported as 10 to 12 per day. She was quite weak at the time of admission and reports 20-pound weight loss with inability to eat at all. She had a negative workup from GI specialist at [facility]. Montse was admitted on 02/29/2020. She was given IV fluids, LR bolus, and multivitamin bag. Scopolamine patch was discontinued and she was given her routine medication. The only new medication she was given was Reglan that was scheduled. She did have good oral intake. Bowel movements only 2 were witnessed. She would either flush or put lots of toilet paper so they were not able to be witnessed. She had 5 reported the 1st day and yesterday had 2. Psych evaluation was completed, but report not available. Montse was able to be discharged to home on 03/02/2020 with no complications. She did admit to not taking any of her oral medication for nausea or diarrhea. States she has an aversion to drinking water because she almost drowned when she was little. She also had a dietary consult while hospitalized. PHYSICAL EXAMINATION: GENERAL: Montse Salazar is a 39-year-old female. VITAL SIGNS: Height is 5 feet 7 inches, weight on the standing scale today at the hospital in hospital wn was 146, BMI 22.9. TPR at 0700, 96.7; 69; 16; blood pressure 120/59. HEENT: Negative. NECK: Supple. HEART: Regular rate and rhythm. LUNGS: Clear. ABDOMEN: Soft and nontender. EXTREMITIES: Without peripheral edema. NEUROLOGIC: Intact. PSYCHIATRIC: Mood and affect, she is much more talkative and just seems better. DISPOSITION: Discharged to home. CONDITION: Stable and improving. FOLLOWUP: Appointment with Mandy Bob PA-C, on 03/15/2020 at 11:30 a.m. Home medications to be resumed and stressed the importance of compliance. She has a followup appointment with GI specialty in 1 week also. DIET: Step 4 gastric bypass diet. Drink 8 to 10 glasses of water a day. ACTIVITY: As tolerated. May shower. Recommend referral to psychologist for behavior health therapist. We will refer this to [facility]. MEDICATIONS: To resume home medications of: 1. Precose 25 mg 3 times a day. 2. Calcium citrate 1 tablet twice daily. 3. Vitamin B12 1000 mcg oral daily. 4. Voltaren 1% gel topical 3 times a day. 5. Bentyl 10 mg every 4 hours. 6. Lexapro 20 mg oral daily. 7. Folic acid 1 mg oral daily. 8. Levsin 0.125 mg sublingual every 4 hours. 9. Probiotic 2 capsules oral twice daily. 10.Reglan 10 mg q.6 hours p.r.n. nausea. 11.Multivitamin 1 tablet daily. 12.Zofran ODT 4 mg every 8 hours p.r.n. nausea. 13.Protonix 40 mg oral daily. 14.Phenergan 25 mg oral every 6 hours. 15.Sucralfate 1 g oral before meals and at bedtime. 16.Vitamin B complex 100 mg oral daily. 17.Zanaflex 2 mg every 8 hours p.r.n. pain. 18.Trazodone 50 mg oral at bedtime p.r.n. sleep. 19.ОЛЕГ Ryan.
== END 2020-03-02 11:30 | disposition home or self-care (01) | DRG 641 ==
LOC: JP.MS 13:19
PROVIDERS: ADMIT Physician Assistant Medical; ATTEND Surgery
DX: E46 Unspecified protein-calorie malnutrition (principal); K91.2 Postsurgical malabsorption, not elsewhere classified; E53.8 Deficiency of other specified B group vitamins; G89.29 Other chronic pain; M54.9 Dorsalgia, unspecified; F32.9 Major depressive disorder, single episode, unspecified; M19.90 Unspecified osteoarthritis, unspecified site; K59.00 Constipation, unspecified; D50.9 Iron deficiency anemia, unspecified; R63.4 Abnormal weight loss; Z68.20 Body mass index [BMI] 20.0-20.9, adult; Z98.84 Bariatric surgery status; Z79.899 Other long term (current) drug therapy; E16.2 Hypoglycemia, unspecified
CPT/HCPCS: 36415; 80053; 83735; 84100; 85027; 87493; 97161-GP; 97530-GP; 97535-GP; A9270-GY; C9113; J2765; J3420; J3475; J3490; J7120; J7121

== ENCOUNTER 2021-05-10 05:49 | Day surgery (SDC) | payer OTHER ==
[2021-05-10] MEDS ORDERED: Meropenem 500 MG in Sodium Chloride 0.9% 50 ML IV ONE (07:15)
[2021-05-10] MEDS ORDERED: fentaNYL 100 MCG/2 ML SDV ONE (07:18)
[2021-05-10] MEDS ORDERED: Midazolam 1 MG/ML 2 ML SDV ONE (07:18)
[2021-05-10] MEDS ORDERED: Propofol 200 MG/20 ML SDV ONE (07:18)
[2021-05-10] MEDS ORDERED: Glycopyrrolate 0.2 MG/ML 2 ML SDV IVPUSH ONE (07:30)
[2021-05-10] MEDS ORDERED: Lactated Ringers 1,000 ML IV SCH (07:30)
[2021-05-10] MEDS ORDERED: Cyanocobalamin (Vitamin B12) 1,000 MCG/ML SDV IM ONE (07:45)
[2021-05-10] MEDS ORDERED: MVI, Adult with Vitamin K 10 ML, Chromium/Copper/Mang/Selen/Zn 1 ML in Lactated Ringers... IV ONE ×3 (08:00)
[2021-05-10] MEDS ORDERED: Ondansetron 4 MG/2 ML SDV ONE (08:04)
[2021-05-10] MEDS ORDERED: Scopolamine 1.5 MG Transdermal Patch TOP SCH (08:30)
[2021-05-10] MEDS ORDERED: MVI, Adult with Vitamin K 10 ML, Thiamine 200 MG, Chromium/Copper/Mang/Selen/Zn 1 ML in... IV ONE ×4 (08:45)
--- NOTE | 2021-05-23 10:38 | OR ---
DATE OF PROCEDURE: 05/10/2021 SURGEON: Spencer Pagan MD PREOPERATIVE DIAGNOSIS: Persistent heartburn, nausea, vomiting, status post Tha-en-Y gastric bypass. POSTOPERATIVE DIAGNOSES: 1. Persistent heartburn, nausea, vomiting, status post Tha-en-Y gastric bypass. 2. Grossly normal upper gastrointestinal endoscopic examination, status post Tha-en-Y gastric bypass. OPERATIVE PROCEDURE: Upper gastrointestinal endoscopy. ANESTHESIA: IV sedation. INDICATION FOR PROCEDURE: A 41-year-old presenting with some recently worsening nausea, heartburn. The patient underwent a laparoscopic Tha-en-Y gastric bypass in October of 2017 and the revision of that on 02/23/2018. She has had some ongoing problems with heartburn, nausea, and vomiting, which has become worsened recently and presently is on b.i.d. Protonix. Plan is to proceed with an upper GI endoscopy with biopsies and dilation as indicated. Potential risks including bleeding and perforation were discussed, and the patient wishes to proceed. DETAILS OF PROCEDURE: The patient was taken to the operating room and placed in a left lateral decubitus position. IV sedation was administered, after which the upper GI endoscope was passed orally through the length of esophagus and into the gastric pouch, and from there through the gastrojejunostomy roughly 20 cm into the Tha limb. Findings were overall entirely normal hypopharynx, larynx. Upper esophageal sphincter and esophageal body were unremarkable. The EG junction, gastric pouch likewise with no significant inflammation. There is no stricturing of the gastrojejunostomy. No marginal ulcers were identified. Remainder of the Tha limb was unremarkable. At this point, the scope was withdrawn, the above findings reconfirmed, and the procedure then concluded. At this point, we will place a scopolamine patch on and leave this on for the next 3 days. If this is helpful nausea worsens once again, she is instructed to call scopolamine patch. Otherwise, continue present medications plus nausea, #40 with one refill. The patient will be set up for a virtual visit in 2 weeks with Mandy Bob. If patient's nausea, vomiting, or such persists, one might consider partial small bowel obstruction. Spencer Pagan MD /[id number]
== END 2021-05-10 10:53 | disposition home or self-care (01) ==
LOC: JP.SDS 05:49
PROVIDERS: ATTEND Surgery
DX: R11.2 Nausea with vomiting, unspecified (principal); K21.9 Gastro-esophageal reflux disease without esophagitis; Z98.84 Bariatric surgery status
CPT/HCPCS: 43235; A9270; J2185; J2250; J2405; J2704; J3010; J3420; J3490; J7120